=== PATIENT | male | born 1945 | race Caucasian/White ===

== ENCOUNTER 2021-03-23 07:56 | Outpatient (REF) | payer MEDICARE, SELFPAY ==
[2021-03-23 08:48] LABS: MANUAL DIFF FLAG NO
[2021-03-23 08:59] LABS: Basophils Absolute Auto 0.1 X10*3/uL (0.0-0.2); Basophils Percent Auto 0.7 % (0-2); Eosinophils Absolute Auto 0.2 X10*3/uL (0.0-0.4); Eosinophils Percent Auto 2.7 % (0-4); Hematocrit 44.6 % (42-52); Hemoglobin 15.5 g/dl (14.0-18.0); Imm Gran Abs Auto 0.03 X10*3/uL (0.00-0.03); Imm Gran Pct Auto 0.4 % (0.0-0.4); Lymphocytes Absolute Auto 2.1 X10*3/uL (1.2-4.9); Mean Corpuscular HGB Conc 34.8 g/dl (31.0-36.0); Mean Corpuscular Hemoglobin 31.8 pg (27.0-33.0); Mean Corpuscular Volume 91.6 fL (80-98); Mean Platelet Volume 9.8 fL (9.4-12.4); Monocytes Absolute Auto 0.5 X10*3/uL (0.1-1.2); Monocytes Percent Auto 7.2 % (2-11); Neutrophils Absolute Auto 4.4 X10*3/uL (2.0-8.3); Platelet Count 295 X10*3/uL (160-400); Red Blood Count 4.87 X10*6/uL (4.60-5.80); Red Cell Distribution Width 12.8 % (11.0-16.0); White Blood Count 7.4 X10*3/uL (4.8-10.8)
[2021-03-23 09:31] LABS: Alanine Aminotransferase 19 U/L (0-40); Albumin Level 4.4 g/dL (3.5-5.0); Alkaline Phosphatase 88 U/L (39-117); Anion Gap 14 (12-20); Aspartate Amino Transferase 27 U/L (5-37); Bilirubin Total 0.7 mg/dL (0.0-1.0); Blood Urea Nitrogen 17 mg/dL (9-16); Calcium 9.8 mg/dL (8.4-10.2); Carbon Dioxide 28 mmol/L (22-29); Chloride 96 mmol/L (96-108); Cholesterol 125 mg/dL; Estimated Glomerular Filt Rate > 60; Glucose Fasting 113 mg/dL (60-99); HDL Cholesterol 47 mg/dL; LDL Cholesterol Calculated 65 mg/dl; Potassium 4.2 mmol/L (3.3-5.1); Sodium 134 mmol/L (135-145); Total Protein 7.4 g/dL (6.5-8.0); Triglycerides 66 mg/dL
[2021-03-23 09:54] LABS: Prostate Specific Antigen 1.83 ng/mL (<0.05-4.0); Vitamin D 25-OH Total 36.3 ng/mL (>30)
== END 2021-03-23 07:57 | disposition home or self-care (01) ==
LOC: HO.LAB 07:56
PROVIDERS: PCP Internal Medicine Medical Oncology; Visit Provider Internal Medicine Medical Oncology
DX: Z12.5 Encounter for screening for malignant neoplasm of prostate (principal); I10 Essential (primary) hypertension; N40.0 Benign prostatic hyperplasia without lower urinary tract symptoms; E78.2 Mixed hyperlipidemia; E55.9 Vitamin D deficiency, unspecified
CPT/HCPCS: 36415; 80053; 80061; 82306; 84153; 85025

== ENCOUNTER 2021-06-25 11:48 | Outpatient (REF) | payer MEDICARE, SELFPAY | END 2021-06-25 11:49 | disposition home or self-care (01) | LOC: HO.LAB 11:48 | PROVIDERS: PCP Internal Medicine Medical Oncology; Visit Provider Internal Medicine Medical Oncology | DX: Z20.822 Contact with and (suspected) exposure to COVID-19 (principal) | CPT/HCPCS: U0003; U0005 ==

== ENCOUNTER 2021-11-16 14:05 | Outpatient (REF) | payer MEDICARE, SELFPAY ==
[2021-11-16 14:13] VITALS: BMI 23.3
[2021-11-16 14:14] VITALS: BP 88/57; PULSE 94; RESP 16; TEMP 36.1; O2SAT 94
== END 2021-11-16 14:06 | disposition home or self-care (01) ==
LOC: HO.MS 14:05
PROVIDERS: PCP Internal Medicine Medical Oncology; Visit Provider Ophthalmology
PROC: (CPT 67800; principal; 2021-11-16 15:50)
DX: H00.12 Chalazion right lower eyelid (principal); I10 Essential (primary) hypertension; Z79.899 Other long term (current) drug therapy
CPT/HCPCS: 67800

== ENCOUNTER 2022-01-27 15:20 | Outpatient (REF) | payer MEDICARE, SELFPAY ==
--- NOTE | ~2022-01-27 | XR_ITS ---
EXAMINATION: XR CHEST CLINICAL INFORMATION: Pleurisy, pleuritic pain. COMPARISON: None TECHNIQUE: 2 views of the chest were obtained. FINDINGS: The lungs are well expanded. Prominent markings are seen at the lung periphery and bases bilaterally. Associated hazy basilar opacity. No pneumothorax. The cardiomediastinal silhouette is normal in size. XR/XR chest 2V IMPRESSION: Prominent peripheral markings in both lungs. This is nonspecific but could be associated with chronic lung disease. Atypical infectious process is possible.
[2022-01-27 15:46] LABS: MANUAL DIFF FLAG NO
[2022-01-27 16:30] LABS: Basophils Percent Auto 0.5 % (0-2); Eosinophils Absolute Auto 0.1 X10*3/uL (0.0-0.4); Eosinophils Percent Auto 1.5 % (0-4); Hemoglobin 13.4 g/dl (14.0-18.0); Imm Gran Abs Auto 0.02 X10*3/uL (0.00-0.03); Imm Gran Pct Auto 0.2 % (0.0-0.4); Lymphocytes Absolute Auto 2.3 X10*3/uL (1.2-4.9); Lymphocytes Percent Auto 28.2 % (20-40); Mean Corpuscular HGB Conc 34.4 g/dl (31.0-36.0); Mean Corpuscular Hemoglobin 31.4 pg (27.0-33.0); Mean Corpuscular Volume 91.3 fL (80.0-98.0); Mean Platelet Volume 10.2 fL (9.4-12.4); Monocytes Absolute Auto 0.8 X10*3/uL (0.1-1.2); Monocytes Percent Auto 9.7 % (2-11); Neutrophils Absolute Auto 4.9 x10*3/uL (2.0-8.3); Neutrophils Percent Auto 59.9 % (45-73); Platelet Count 299 X10*3/uL (160-400); Red Blood Count 4.27 X10*6/uL (4.60-5.80); Red Cell Distribution Width 13.4 % (11.0-16.0); White Blood Count 8.2 X10*3/uL (4.8-10.8)
[2022-01-27 17:07] LABS: Erythrocyte Sedimentation Rate 65 MM/HR (0-15)
[2022-01-27 17:09] LABS: Alanine Aminotransferase 22 U/L (0-40); Alkaline Phosphatase 101 U/L (39-117); Anion Gap 14 (12-20); Aspartate Amino Transferase 24 U/L (5-37); Bilirubin Total 0.8 mg/dL (0.0-1.0); Blood Urea Nitrogen 35 mg/dL (9-16); Calcium 9.1 mg/dL (8.4-10.2); Carbon Dioxide 27 mmol/L (22-29); Chloride 96 mmol/L (96-108); Estimated Glomerular Filt Rate > 60; Gamma Glutamyl Transpeptidase 175 U/L (11-51); Glucose Random 104 mg/dL (60-115); Potassium 3.4 mmol/L (3.3-5.1); Sodium 134 mmol/L (135-145)
== END 2022-01-27 15:21 | disposition home or self-care (01) ==
LOC: HO.XRAY 15:20
PROVIDERS: PCP Internal Medicine Medical Oncology; Visit Provider Internal Medicine Medical Oncology
DX: R09.1 Pleurisy (principal); R07.81 Pleurodynia; N40.0 Benign prostatic hyperplasia without lower urinary tract symptoms; E78.2 Mixed hyperlipidemia; E55.9 Vitamin D deficiency, unspecified
CPT/HCPCS: 36415; 71046; 80053; 82977; 85025; 85652

== ENCOUNTER 2022-03-17 07:49 | Outpatient (REF) | payer MEDICARE, SELFPAY ==
[2022-03-17 10:22] LABS: MANUAL DIFF FLAG NO
[2022-03-17 10:31] LABS: Basophils Percent Auto 0.4 % (0-2); Eosinophils Absolute Auto 0.2 X10*3/uL (0.0-0.4); Eosinophils Percent Auto 2.9 % (0-4); Hematocrit 38.8 % (42.0-52.0); Hemoglobin 13.5 g/dl (14.0-18.0); Imm Gran Abs Auto 0.03 X10*3/uL (0.00-0.03); Imm Gran Pct Auto 0.4 % (0.0-0.4); Lymphocytes Absolute Auto 2.2 X10*3/uL (1.2-4.9); Lymphocytes Percent Auto 30.7 % (20-40); Mean Corpuscular HGB Conc 34.8 g/dl (31.0-36.0); Mean Corpuscular Hemoglobin 30.6 pg (27.0-33.0); Mean Platelet Volume 10.1 fL (9.4-12.4); Monocytes Absolute Auto 0.7 X10*3/uL (0.1-1.2); Monocytes Percent Auto 9.1 % (2-11); Neutrophils Absolute Auto 4.1 x10*3/uL (2.0-8.3); Neutrophils Percent Auto 56.5 % (45-73); Platelet Count 281 X10*3/uL (160-400); Red Blood Count 4.41 X10*6/uL (4.60-5.80); Red Cell Distribution Width 13.6 % (11.0-16.0); White Blood Count 7.2 X10*3/uL (4.8-10.8)
[2022-03-17 11:01] LABS: Alanine Aminotransferase 17 U/L (0-40); Albumin Level 4.2 g/dL (3.5-5.0); Alkaline Phosphatase 90 U/L (39-117); Anion Gap 13 (12-20); Aspartate Amino Transferase 21 U/L (5-37); Bilirubin Total 0.6 mg/dL (0.0-1.0); Blood Urea Nitrogen 11 mg/dL (9-16); Calcium 9.1 mg/dL (8.4-10.2); Carbon Dioxide 28 mmol/L (22-29); Chloride 94 mmol/L (96-108); Cholesterol 156 mg/dL; Estimated Glomerular Filt Rate > 60; Glucose Fasting 104 mg/dL (60-99); HDL Cholesterol 50 mg/dL; LDL Cholesterol Calculated 93 mg/dl; Potassium 3.5 mmol/L (3.3-5.1); Sodium 131 mmol/L (135-145); Total Protein 7.1 g/dL (6.5-8.0); Triglycerides 68 mg/dL
[2022-03-17 11:13] LABS: Prostate Specific Antigen 1.56 ng/mL (<0.05-4.0)
== END 2022-03-17 07:50 | disposition home or self-care (01) ==
LOC: HO.10HDL 07:49
PROVIDERS: Visit Provider Internal Medicine Medical Oncology
DX: N40.0 Benign prostatic hyperplasia without lower urinary tract symptoms (principal); E78.2 Mixed hyperlipidemia; Z12.5 Encounter for screening for malignant neoplasm of prostate
CPT/HCPCS: 36415; 80053; 80061; 84153; 85025

== ENCOUNTER 2022-07-08 07:03 | Outpatient (REF) | payer MEDICARE, SELFPAY ==
[2022-07-08 07:13] LABS: MANUAL DIFF FLAG NO
[2022-07-08 07:30] LABS: Basophils Absolute Auto 0.1 X10*3/uL (0.0-0.2); Basophils Percent Auto 0.5 % (0-2); Eosinophils Absolute Auto 0.2 X10*3/uL (0.0-0.4); Eosinophils Percent Auto 1.8 % (0-4); Hematocrit 38.7 % (42.0-52.0); Hemoglobin 12.9 g/dl (14.0-18.0); Imm Gran Abs Auto 0.09 X10*3/uL (0.00-0.03); Imm Gran Pct Auto 0.7 % (0.0-0.4); Lymphocytes Absolute Auto 2.9 X10*3/uL (1.2-4.9); Lymphocytes Percent Auto 22.8 % (20-40); Mean Corpuscular HGB Conc 33.3 g/dl (31.0-36.0); Mean Corpuscular Hemoglobin 30.3 pg (27.0-33.0); Mean Corpuscular Volume 90.8 fL (80.0-98.0); Mean Platelet Volume 9.4 fL (9.4-12.4); Monocytes Absolute Auto 0.8 X10*3/uL (0.1-1.2); Monocytes Percent Auto 6.2 % (2-11); Neutrophils Absolute Auto 8.6 x10*3/uL (2.0-8.3); Platelet Count 413 X10*3/uL (160-400); Red Blood Count 4.26 X10*6/uL (4.60-5.80); Red Cell Distribution Width 13.2 % (11.0-16.0); White Blood Count 12.7 X10*3/uL (4.8-10.8)
[2022-07-08 08:07] LABS: Alanine Aminotransferase 36 U/L (0-40); Albumin Level 3.8 g/dL (3.5-5.0); Alkaline Phosphatase 121 U/L (39-117); Anion Gap 12 (12-20); Aspartate Amino Transferase 21 U/L (5-37); Bilirubin Total 0.7 mg/dL (0.0-1.0); Blood Urea Nitrogen 18 mg/dL (9-16); Calcium 9.6 mg/dL (8.4-10.2); Carbon Dioxide 31 mmol/L (22-29); Chloride 99 mmol/L (96-108); Cholesterol 131 mg/dL; Estimated Glomerular Filt Rate > 60; Glucose Fasting 125 mg/dL (60-99); HDL Cholesterol 30 mg/dL; LDL Cholesterol Calculated 84 mg/dl; Sodium 138 mmol/L (135-145); Total Protein 7.2 g/dL (6.5-8.0); Triglycerides 87 mg/dL
== END 2022-07-08 07:04 | disposition home or self-care (01) ==
LOC: HO.LAB 07:03
PROVIDERS: PCP Internal Medicine Medical Oncology; Visit Provider Internal Medicine Medical Oncology
DX: Z00.00 Encounter for general adult medical examination without abnormal findings (principal); N40.0 Benign prostatic hyperplasia without lower urinary tract symptoms; E78.2 Mixed hyperlipidemia
CPT/HCPCS: 36415; 80053; 80061; 85025

== ENCOUNTER 2022-10-18 09:11 | Outpatient (REF) | payer MEDICARE, SELFPAY ==
--- NOTE | ~2022-10-18 | XR_ITS ---
EXAMINATION: XR CHEST CLINICAL INFORMATION: Chronic cough. COMPARISON: 01/27/2022. TECHNIQUE: 2 views of the chest were obtained. XR/XR chest 2V FINDINGS/IMPRESSION: There has been no significant radiographic change compared with 01/27/2022. Examination again demonstrates moderate to severe bilateral chronic interstitial fibrotic changes with a peripheral and basilar predominance. There may be superimposed bullae at the right base. No consolidation, effusion, or pneumothorax is seen. The heart appears normal in size. The aorta may be mildly uncoiled, raising the possibility of hypertension. There are degenerative changes of the shoulders with bilateral degenerative rotator cuff tears. There are mild degenerative changes of the spine.
== END 2022-10-18 09:12 | disposition home or self-care (01) ==
LOC: HO.XRAY 09:11
PROVIDERS: PCP Internal Medicine Medical Oncology; Visit Provider Internal Medicine Medical Oncology
DX: R05.3 Chronic cough (principal)
CPT/HCPCS: 71046

== ENCOUNTER 2023-03-07 07:35 | Outpatient (REF) | payer MEDICARE, SELFPAY ==
[2023-03-07 07:47] LABS: MANUAL DIFF FLAG NO
[2023-03-07 08:17] LABS: Basophils Absolute Auto 0.1 X10*3/uL (0.0-0.2); Basophils Percent Auto 0.6 % (0-2); Eosinophils Absolute Auto 0.3 X10*3/uL (0.0-0.4); Eosinophils Percent Auto 3.5 % (0-4); Hematocrit 40.7 % (42.0-52.0); Hemoglobin 13.6 g/dl (14.0-18.0); Imm Gran Abs Auto 0.02 X10*3/uL (0.00-0.03); Imm Gran Pct Auto 0.2 % (0.0-0.4); Lymphocytes Percent Auto 35.7 % (20-40); Mean Corpuscular HGB Conc 33.4 g/dl (31.0-36.0); Mean Corpuscular Hemoglobin 30.8 pg (27.0-33.0); Mean Corpuscular Volume 92.1 fL (80.0-98.0); Mean Platelet Volume 9.5 fL (9.4-12.4); Monocytes Absolute Auto 0.6 X10*3/uL (0.1-1.2); Monocytes Percent Auto 7.5 % (2-11); Neutrophils Absolute Auto 4.4 x10*3/uL (2.0-8.3); Neutrophils Percent Auto 52.5 % (45-73); Platelet Count 291 X10*3/uL (160-400); Red Blood Count 4.42 X10*6/uL (4.60-5.80); Red Cell Distribution Width 13.6 % (11.0-16.0); White Blood Count 8.4 X10*3/uL (4.8-10.8)
[2023-03-07 09:03] LABS: Prostate Specific Antigen 1.65 ng/mL (<0.05-4.0)
[2023-03-07 11:57] LABS: Alanine Aminotransferase 16 U/L (0-40); Alkaline Phosphatase 100 U/L (39-117); Anion Gap 14 (12-20); Aspartate Amino Transferase 21 U/L (5-37); Bilirubin Total 0.5 mg/dL (0.0-1.0); Blood Urea Nitrogen 16 mg/dL (9-16); Calcium 9.9 mg/dL (8.4-10.2); Carbon Dioxide 28 mmol/L (22-29); Chloride 94 mmol/L (96-108); Cholesterol 131 mg/dL; Estimated Glomerular Filt Rate > 60; Glucose Random 101 mg/dL (60-115); HDL Cholesterol 47 mg/dL; LDL Cholesterol Calculated 61 mg/dl; Potassium 3.9 mmol/L (3.3-5.1); Sodium 132 mmol/L (135-145); Total Protein 7.7 g/dL (6.5-8.0); Triglycerides 117 mg/dL
== END 2023-03-07 07:36 | disposition home or self-care (01) ==
LOC: HO.LAB 07:35
PROVIDERS: PCP Internal Medicine Medical Oncology; Visit Provider Internal Medicine Medical Oncology
DX: Z12.5 Encounter for screening for malignant neoplasm of prostate (principal); N40.0 Benign prostatic hyperplasia without lower urinary tract symptoms; G44.029 Chronic cluster headache, not intractable; I10 Essential (primary) hypertension; E78.2 Mixed hyperlipidemia
CPT/HCPCS: 36415; 80053; 80061; 84153; 85025

== ENCOUNTER 2023-06-17 08:07 | Outpatient (REF) | payer MEDICARE, SELFPAY ==
[2023-06-17 08:20] LABS: MANUAL DIFF FLAG NO
[2023-06-17 08:34] LABS: Basophils Percent Auto 0.6 % (0-2); Eosinophils Absolute Auto 0.2 X10*3/uL (0.0-0.4); Eosinophils Percent Auto 3.6 % (0-4); Hematocrit 40.3 % (42.0-52.0); Imm Gran Abs Auto 0.02 X10*3/uL (0.00-0.03); Imm Gran Pct Auto 0.3 % (0.0-0.4); Lymphocytes Absolute Auto 2.3 X10*3/uL (1.2-4.9); Lymphocytes Percent Auto 36.5 % (20-40); Mean Corpuscular HGB Conc 34.7 g/dl (31.0-36.0); Mean Corpuscular Hemoglobin 32.5 pg (27.0-33.0); Mean Corpuscular Volume 93.5 fL (80.0-98.0); Mean Platelet Volume 9.7 fL (9.4-12.4); Monocytes Absolute Auto 0.6 X10*3/uL (0.1-1.2); Monocytes Percent Auto 9.3 % (2-11); Neutrophils Absolute Auto 3.1 x10*3/uL (2.0-8.3); Neutrophils Percent Auto 49.7 % (45-73); Platelet Count 235 X10*3/uL (160-400); Red Blood Count 4.31 X10*6/uL (4.60-5.80); Red Cell Distribution Width 13.5 % (11.0-16.0); White Blood Count 6.3 X10*3/uL (4.8-10.8)
[2023-06-17 09:43] LABS: Alanine Aminotransferase 18 U/L (0-40); Albumin Level 4.1 g/dL (3.5-5.0); Alkaline Phosphatase 84 U/L (39-117); Anion Gap 12 (12-20); Aspartate Amino Transferase 26 U/L (5-37); Bilirubin Total 0.7 mg/dL (0.0-1.0); Blood Urea Nitrogen 17 mg/dL (9-16); Calcium 9.4 mg/dL (8.4-10.2); Carbon Dioxide 28 mmol/L (22-29); Chloride 96 mmol/L (96-108); Cholesterol 137 mg/dL (<200); Estimated Glomerular Filt Rate > 60; Glucose Fasting 99 mg/dL (60-99); HDL Cholesterol 43 mg/dL (>40); LDL Cholesterol Calculated 74 mg/dL (<100); Potassium 3.8 mmol/L (3.3-5.1); Sodium 132 mmol/L (135-145); Total Protein 7.6 g/dL (6.5-8.0); Triglycerides 101 mg/dL (<150)
== END 2023-06-17 08:08 | disposition home or self-care (01) ==
LOC: HO.LAB 08:07
PROVIDERS: PCP Internal Medicine Medical Oncology; Visit Provider Internal Medicine Medical Oncology
DX: Z00.00 Encounter for general adult medical examination without abnormal findings (principal); I10 Essential (primary) hypertension; E78.2 Mixed hyperlipidemia
CPT/HCPCS: 36415; 80053; 80061; 85025

== ENCOUNTER 2024-01-11 07:20 | Outpatient (REF) | payer MEDICARE, SELFPAY ==
[2024-01-11 07:37] LABS: MANUAL DIFF FLAG NO
[2024-01-11 07:53] LABS: Basophils Absolute Auto 0.1 X10*3/uL (0.0-0.2); Basophils Percent Auto 0.6 % (0-2); Eosinophils Absolute Auto 0.3 X10*3/uL (0.0-0.4); Eosinophils Percent Auto 3.9 % (0-4); Hematocrit 40.1 % (42.0-52.0); Hemoglobin 14.2 g/dl (14.0-18.0); Imm Gran Abs Auto 0.03 X10*3/uL (0.00-0.03); Imm Gran Pct Auto 0.4 % (0.0-0.4); Lymphocytes Percent Auto 36.5 % (20-40); Mean Corpuscular HGB Conc 35.4 g/dl (31.0-36.0); Mean Corpuscular Hemoglobin 32.9 pg (27.0-33.0); Mean Platelet Volume 9.6 fL (9.4-12.4); Monocytes Absolute Auto 0.8 X10*3/uL (0.1-1.2); Monocytes Percent Auto 9.7 % (2-11); Neutrophils Percent Auto 48.9 % (45-73); Platelet Count 215 X10*3/uL (160-400); Red Blood Count 4.31 X10*6/uL (4.60-5.80); Red Cell Distribution Width 13.2 % (11.0-16.0); White Blood Count 8.1 X10*3/uL (4.8-10.8)
[2024-01-11 08:46] LABS: Alanine Aminotransferase 17 U/L (0-40); Alkaline Phosphatase 80 U/L (39-117); Anion Gap 12 (12-20); Aspartate Amino Transferase 22 U/L (5-37); Bilirubin Total 0.5 mg/dL (0.0-1.0); Blood Urea Nitrogen 15 mg/dL (9-16); Calcium 9.4 mg/dL (8.4-10.2); Carbon Dioxide 28 mmol/L (22-29); Chloride 92 mmol/L (96-108); Cholesterol 132 mg/dL (<200); Estimated Glomerular Filt Rate > 60; Glucose Fasting 93 mg/dL (60-99); HDL Cholesterol 48 mg/dL (>40); LDL Cholesterol Calculated 63 mg/dL (<100); Potassium 3.3 mmol/L (3.3-5.1); Sodium 129 mmol/L (135-145); Total Protein 7.4 g/dL (6.5-8.0); Triglycerides 106 mg/dL (<150)
== END 2024-01-11 07:21 | disposition home or self-care (01) ==
LOC: HO.LAB 07:20
PROVIDERS: PCP Internal Medicine Medical Oncology; Visit Provider Internal Medicine Medical Oncology
DX: E78.2 Mixed hyperlipidemia (principal)
CPT/HCPCS: 36415; 80053; 80061; 85025

== ENCOUNTER 2024-03-29 09:53 | Outpatient (REF) | payer MEDICARE, SELFPAY ==
--- NOTE | ~2024-03-29 | XR_ITS ---
EXAMINATION: XR CHEST CLINICAL INFORMATION: Chronic cough COMPARISON: 10/18/2022 TECHNIQUE: 2 views of the chest were obtained. FINDINGS: There are prominent bilateral interstitial markings and bibasilar atelectasis findings consistent with features of pulmonary fibrosis. No consolidations or nodules seen. Thoracic aorta is tortuous heart is not enlarged. XR/XR chest 2V IMPRESSION: Features of pulmonary fibrosis without acute abnormalities. Bibasilar atelectasis
== END 2024-03-29 09:54 | disposition home or self-care (01) ==
LOC: HO.XRAY 09:53
PROVIDERS: PCP Internal Medicine Medical Oncology; Visit Provider Internal Medicine Medical Oncology
DX: R05.3 Chronic cough (principal); Z87.891 Personal history of nicotine dependence
CPT/HCPCS: 71046

== ENCOUNTER 2024-04-19 10:49 | Outpatient (REF) | payer MEDICARE, SELFPAY | END 2024-04-19 10:50 | disposition home or self-care (01) | LOC: HO.HOSX 10:49 | PROVIDERS: Visit Provider Physician Assistant | DX: Z13.89 Encounter for screening for other disorder (principal) ==

== ENCOUNTER 2024-04-20 11:55 | Outpatient (REF) | payer MEDICARE, SELFPAY ==
--- NOTE | ~2024-04-20 | XR_ITS ---
EXAMINATION: XR SHOULDER, LEFT CLINICAL INFORMATION: Shoulder pain COMPARISON: None available. TECHNIQUE: Three views of the left shoulder. FINDINGS: Moderate acromioclavicular arthritis. Moderate-severe glenohumeral joint arthritis. There is superior positioning of the humeral head with respect to the glenoid, raising concern for rotator cuff tearing. No visible acute fracture or dislocation. XR/XR shoulder LT min 2V IMPRESSION: Moderate-severe glenohumeral joint arthritis. Moderate acromioclavicular arthritis. Superior subluxation of the humerus, concerning for rotator cuff tear. Electronically signed by: Todd Leos MD 04/26/2024 05:02 PM EDT
== END 2024-04-20 11:56 | disposition home or self-care (01) ==
LOC: HO.HOSX 11:55
PROVIDERS: Visit Provider Physician Assistant
DX: M25.512 Pain in left shoulder (principal); M19.012 Primary osteoarthritis, left shoulder; M12.812 Other specific arthropathies, not elsewhere classified, left shoulder; M75.102 Unspecified rotator cuff tear or rupture of left shoulder, not specified as traumatic; S43.002A Unspecified subluxation of left shoulder joint, initial encounter
CPT/HCPCS: 20610; 73030; 99202; J1010

== ENCOUNTER 2024-04-20 12:18 | Outpatient (AMB) | payer MEDICARE, SELFPAY ==
--- NOTE | 2024-04-20 12:33 | MHC.OFFVIS ---
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 Patient reports ongoing pain for many months. He mentions having an cortisone injection which gave him relief. Patient reports his pain is worse when he is laying down on his left side. 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 ? ? While in the office today, the patient reports ongoing pain for many months. He states the pain radiates up and down his left upper extremity. He confirms a history of cortisone injections in the right shoulder in the past that gave him relief. He states he is unable to lay on his left side due to pain. ? ? Patient denies a medical history of diabetes mellitus. ? ? Patient has a surgical history of left shoulder rotator cuff repair. ? [facility] Social History (Updated 04/20/24 @ 12:38 by Aleksandr Osorio) Alcohol intake: never Patient Tobacco Use Status: Never used Tobacco Current occupational status: retired Review of Systems Const All systems reviewed & are unremarkable except as noted in HPI and below Physical Exam Const General: cooperative, healthy appearing and no acute distress Orientation/consciousness: patient oriented x3 Resp Effort & Inspection: normal respiratory effort and able to speak in complete sentences Cardio Rate: regular rate Peripheral pulses: Peripheral pulses 2+ throughout GI Palpation (GI): Soft to palpation Skin General skin exam: no rashes or lesions noted Lesions: no lesions Rashes: no rashes Neuro General: patient oriented x3 Extrem Other: Left shoulder FF and ABD to 100 degrees. ER to neutral. Sensation intact. + Empty can. NVI. Office Procedures Joint Injection/Aspiration Joint Injection/Aspiration Primary Site: left shoulder Prep: site was prepped using aseptic technique, ethochloride spray was applied and injection warnings given Injected: 80 mg of, DepoMedrol, with 8 mL of (2% plain lido ) and in the subcromial space Approach Used: posterolateral Procedure: The patient tolerated the procedure well, but had some pain with the injection and there was some relief with the local anesthesia Coding 64517 - Large joint Procedure code (CPT) selection complete Assessment & Plan Assessment & Plan (1) Osteoarthritis of left shoulder: Code(s): M19.012 - Primary osteoarthritis, left shoulder Category: Medical (2) Rotator cuff tear arthropathy: Comment: Chronic Code(s): M75.100 - Unspecified rotator cuff tear or rupture of unspecified shoulder, not specified as traumatic; M12.819 - Other specific arthropathies, not elsewhere classified, unspecified shoulder Category: Medical Plan Mr. Larkin is a 78-year-old right hand dominant male who presents in the office today, as a new patient, for left shoulder pain. ? ? While in the office today, the patient reports ongoing pain for many months. He states the pain radiates up and down his left upper extremity. He confirms a history of cortisone injections in the right shoulder in the past that gave him relief. He states he is unable to lay on his left side due to pain. ? ? Patient denies a medical history of diabetes mellitus. ? ? Patient has a surgical history of left shoulder rotator cuff repair.? ? The patient was offered a cortisone injection in the left shoulder with 80 mg of Depo-Medrol. The patient was explained the risks, benefits, and alternatives to receiving this injection. After receiving consent for the injection, the patient had the procedure done while in the office today. The patient tolerated the procedure well with no complications. Follow-up will be PRN, or sooner if needed. ? ? X-rays of the left shoulder which were obtained while in the office today and were reviewed by me, Rachel Inman PA-C, revealed osteoarthritis and acetabularization of acromion Orders: Orders XR shoulder LT min 2V Today M25.519 - Pain in unspecified shoulder Patient Instructions: Scribed by Kayley Roldan pesticide use medical coordinator, for Racehl Inman PA-C on 04/20/2024 at 12:59 pm, EST.? Coding Level of Care Code New Pt Level 4 (92544) Complex EM visit Add On G2211 Diagnoses Osteoarthritis of left shoulder M19.012 Rotator cuff tear arthropathy M75.100; M12.819 CPT Codes Coding - 36342 Large joint: 59802 - Large joint ([id number])
== END 2024-04-20 12:55 | disposition home or self-care (01) ==
PROVIDERS: PCP Internal Medicine Medical Oncology; Visit Provider Physician Assistant
DX: M19.012 Primary osteoarthritis, left shoulder (principal); M75.100 Unspecified rotator cuff tear or rupture of unspecified shoulder, not specified as traumatic
CPT/HCPCS: 20610; 99204

== ENCOUNTER 2024-09-18 09:52 | Outpatient (REF) | payer MEDICARE, SELFPAY ==
[2024-09-18 10:15] LABS: MANUAL DIFF FLAG NO
--- OUTSIDE RECORDS SUMMARY | 2024-09-18 10:30 | XMS_ITS ---
Author Organization Ryan Goodwin III, MD Address [address] [place] [place] [address] Care Team Providers Care Gasser Machine Operator Name Role Phone Ryan Goodwin Primary Care Provider [phone] REASON FOR VISIT follow up Social History Sex Assigned At : Social History Observation Description Sex Assigned At Male Encounters Encounter Location Date Provider Diagnosis Ryan Goodwin III, MD [address] [place] [address] [place] [address] 06/27/2024 Ryan Goodwin Plan Of Treatment Next Appt Details Provider Name:Ryan Goodwin, 09/25/2024 03:15:00 PM, [address] [place] [address] [place], [address], Provider Name:Ryan Goodwin, 04/01/2025 10:00:00 AM, [address] [place] [address] [place], [address], Progress Notes * Ulysses LARKIN SDOB:1945 (78 yo M)Acc No.[id number]:06/27/2024 Progress Notes Patient:?Ulysses LARKIN Provider:?Ryan Goodwin MD :1945???Age:78 Y???Sex:Male Carlos e:06/27/2024 Address:[address], [id number] Subjective: * Chief Complaints: * ???1. Follow up. * Medical History:? Objective: * Vitals:? Assessment: Plan: * Treatment: * Images: * The named appointment provid er may or may not be the originator of this progress note, and it is not deemed complete until electronically signed by the appointment provider. Sign off status: Pending * Provider:?Ryan Goodwin MD Date:?01/2024 Generated for Vincenzo rao/Baylee/Tu on:?09/18/2024 10:30 AM EST
--- OUTSIDE RECORDS SUMMARY | 2024-09-18 10:30 | XMS_ITS ---
Author Organization Ryan Goodwin III, MD Address [address] [place] [address] DR [address] [place] [phone] Care Team Providers Care Flat Sorting Machine Clerk Name Role Phone Ryan Goodwin Primary Care Provider [phone] Allergies Allergen (clinical drug ingredient) Drug/Non Drug [...] Orally Fiv e times a day Active Fktmxwcsxw-IUGO-Nyrzeixb 50-325-40 MG 1 Tablet Orally Once a day As needed Active Benzonatate 100 MG 1 capsule as needed Orally Three times a day 03/28/2024 Active Irbesartan 300 MG 1 tablet Orally Once a day Active Social History Sex Assigned At : Social History Observation Description Sex Assigned At Male Encounters Encounter Location Date Provider Diagnosis Ryan Goodwin III, MD [address] [place] [address] DR URBINA Duncan [place] [phone] 08/20/2024 Ryan Goodwin Impacted cerumen, unspecified ear [...] day hydroCHLOROthiazide 25 MG 1 tablet in e morning Orally Once a day Acyclovir 200 MG 1 capsule Orally Fiv e times a day Rkibyponky-EIRP-Oibtcdur 50- 325-40 MG 1 Tablet Orally Once a day Benzonatate 100 MG 1 capsule as needed Orally Three times a day 03/28/2024 Irbesartan 300 MG 1 tablet Orally Once a day Next Appt Details Follow Up: as scheduled, [place] son: ov review labs Provider Name:Ryan Goodwin, 09/25/2024 03:15:00 PM, [address] [place] [address] [address], [place], [address], Provider Name:Ryan Goodwin, 04/01/2025 10:00:00 AM, [address] [place] [address] [address], [place], [phone], Procedure Notes * Category Sub-Category Detail Notes Ear lavage Procedure Post-procedure Successful Progress Notes * Ulysses LARKIN SDOB:1945 (78 yo M)Acc No.[id number]:08/20/2024 Patient:?Ulysses LARKIN S Provider:?Ryan Goodwin MD :1945???Age:78 Y???Sex:Male Carlos e:08/20/2024 Address:[address] [place] [address] RD, [address], [id number] Subjective: * Chief Complaints: * ???Ear Irrigation * HPI: ???v:? He has used 4 drops of Debrox in each ear for 7 days and comes to the office for cerumen disimpaction.? Both ears were irrigated with warm water with full of the impaction and improvement in hearing.? No trauma occurred.? The skin of his ear canals remained intact. He lleft the office and ambulatory in stable condition. * ROS:?Prior to the procedure he denied any headache diplopia neck pain neck stiffness shortness of breath cough chest pain palpitations nausea vomiting diarrhea joint pain or bleeding. * Medical History:? * Medications:?TakingIrbesarta n 300 MG Tablet 1 tablet Orally Once a day Acyclovir 200 MG Capsule 1 capsule Orally Five times a day hydroCHLOROthiazide 25 MG Tablet 1 tablet in the morning Orally Once a day Benzonatate 100 MG Capsule 1 capsule as needed Orally Three times a day Meiujdhgtk-FGDX-Dgcmzzvh 50-325-40 MG Tablet 1 Tablet Orally Once [...] needed Orally Three times a day Taking Huahamgtda-GOSR-Euwoydpg 50-325-40 MG Tablet 1 Tablet Orally Once a day As neededTaking Simvastatin 40 MG Tablet 1 tablet every evening Orally Once a day * Allergies:?No Known Drug All ergy Objective: * Vitals:? Assessment: * Assessment: 1.?Impacted cerumen, unspeci fied ear - H61.20 (Primary)???Notes :Both ears were impacted.? Both impactions were removed without trauma.? He tolerated procedure well and reported improved hearing at once.? He will return as scheduled.???2.?Benign prostatic hyperplasia, unspecified whether lower urinary tract symptoms present - N40.0???Notes :He rises from sleep once or twice a night to urinate. We have discussed lifestyle modification as a way to reduce nocturnal urination.???3.?Chronic cluster headache, not intractable - G44.029???Notes :His headaches are mild and infrequent and are now controlled with medication.???4.?Essential hypertension - I10???Notes :His blood pressure is in the normal range at 114/78 and no change in his regimen was needed today.??? Plan: * Treatment: * Procedures:?Ear lavage:?Procedure? .?Post-procedure?Successful.? * Procedure Codes:?65226 EAR I RRIGATION * Follow Up:?as scheduled ([place] son: ov review labs) * Images: * Sign off status: Completed true * Provider:?Ryan Goodwin MD Date:?07/24 Generated for Vincenzo rao/Baylee/eTgraceitting on:?09/18/2024 10:30 AM EST
--- OUTSIDE RECORDS SUMMARY | 2024-09-18 10:30 | XMS_ITS | Patient Health Record ---
Author Organization [facility] Address [address] [place] [address] Care Team Providers Care Tubing Supervisor Name Role Phone Ariel Guo DO Primary Care Provider Unavailab le Reason For Referral No Information Medications Medication SIG (Take, Route, Fr equency, Duration) Notes Start Date End Date Status Vitamin C Active Multi Vitamin Active Claritin Active Amoxicillin Active hydroCHLOROthiazide Active Sildenafil Citrate A ctive Acyclovir Active Golytely 236 GM as directed Orally s tart at noon day before procedure for 1 days 01/16/2020 Unknown Gas Relief Active Simvastatin Active Social History Tobacco Use: Social History Observation Description Date Details (start date - stop date) Former Smoker NA - NA Tobacco Use/Smoking Question Answer Notes Are you a: former smoker Alcohol Screen (Audit-C) Question Answer Notes Did you have a drink containing alcohol in the p ast year? No Points 0 Interpretation Negative Problems Problem Type SNOMED Code ICD Code Onset Dates Problem Status W/U Status Risk Notes Problem 034089858 Diverticulosis (K57.90) Active confirmed Plan Of Treatment Pending Test Test Name Order Date Surgical Pathology Report 01/24/2020 COVID19 (LC) 01/22/2020 Insurance Providers Payer Name Payer Address Payer Phone Subscriber Number Group Number Insured Name Patient Relationship to Insured Coverage Start Date Coverage End Date [facility]/[employer] [address] [address] [place] [phone] [id number] Ulysses Larkin Self - patient is the insured Medical (General) History Medical History History ICD Code Hypertension Surgical History Surgery Date(Month/Year) colonoscopy Tonsillectomy [place] surgery Hip replacement Carpal Tunnel Hip revision Hernia
--- OUTSIDE RECORDS SUMMARY | 2024-09-18 10:30 | XMS_ITS ---
Author Organization Ryan Goodwin III, MD Address [address] [place] [facility] [place] [address] Care Team Providers Care Insurance Clerk Name Role Phone Ryan Goodwin Primary Care Provider REASON FOR VISIT Follow Up Social History Sex Assigned At : Social History Observation Description Sex Assigned At Male Encounters Encounter Location Date Provider Diagnosis Ryan Goodwin III, MD [address] [place] [address] [place] [address] 09/17/2024 Ryan Goodwin Plan Of Treatment Next Appt Details Provider Name:Ryan Goodwin, 09/25/2024 03:15:00 PM, [address] [place] [address] [place], [address], Provider Name:Ryan Goodwin, 04/01/2025 10:00:00 AM, [address] [place] [address] [place], [address], Progress Notes * Ulysses LARKIN SDOB:1945 (78 yo M)Acc No.[id number]:09/17/2024 Progress Notes Patient:?Ulysses LARKIN Provider:?Ryan Goodwin MD :1945???Age:78 Y???Sex:Male Carlos e:09/17/2024 [address] [phone] Subjective: * Chief Complaints: * ???1. Follow Up. * Medical History:? Objective: * Vitals:? Assessment: Plan: * Treatment: * Images: * The named appointment provid er may or may not be the originator of this progress note, and it is not deemed complete until electronically signed by the appointment provider. Sign off status: Pending * Provider:?Ryan Goodwin MD Date:?08/23 Generated for Vincenzo rao/Baylee/Kristaitting on:?09/18/2024 10:29 AM EST
[2024-09-18 10:56] LABS: Basophils Percent Auto 0.4 % (0-2); Eosinophils Absolute Auto 0.2 X10*3/uL (0.0-0.4); Eosinophils Percent Auto 3.3 % (0-4); Hematocrit 41.3 % (42.0-52.0); Hemoglobin 14.5 g/dl (14.0-18.0); Imm Gran Abs Auto 0.02 X10*3/uL (0.00-0.03); Imm Gran Pct Auto 0.3 % (0.0-0.4); Lymphocytes Absolute Auto 2.3 X10*3/uL (1.2-4.9); Lymphocytes Percent Auto 33.3 % (20-40); Mean Corpuscular HGB Conc 35.1 g/dl (31.0-36.0); Mean Corpuscular Hemoglobin 33.2 pg (27.0-33.0); Mean Corpuscular Volume 94.5 fL (80.0-98.0); Mean Platelet Volume 9.8 fL (9.4-12.4); Monocytes Absolute Auto 0.5 X10*3/uL (0.1-1.2); Monocytes Percent Auto 7.7 % (2-11); Neutrophils Absolute Auto 3.8 x10*3/uL (2.0-8.3); Platelet Count 231 X10*3/uL (160-400); Red Blood Count 4.37 X10*6/uL (4.60-5.80); White Blood Count 6.9 X10*3/uL (4.8-10.8)
[2024-09-18 11:45] LABS: Alanine Aminotransferase 29 U/L (0-40); Albumin Level 4.2 g/dL (3.5-5.0); Alkaline Phosphatase 80 U/L (39-117); Anion Gap 10 (12-20); Aspartate Amino Transferase 28 U/L (5-37); Bilirubin Total 0.8 mg/dL (0.0-1.0); Blood Urea Nitrogen 15 mg/dL (9-16); Calcium 9.1 mg/dL (8.4-10.2); Carbon Dioxide 29 mmol/L (22-29); Chloride 97 mmol/L (96-108); Cholesterol 129 mg/dL (<200); Estimated Glomerular Filt Rate > 60; Glucose Fasting 95 mg/dL (60-99); HDL Cholesterol 39 mg/dL (>40); LDL Cholesterol Calculated 55 mg/dL (<100); Potassium 3.8 mmol/L (3.3-5.1); Sodium 132 mmol/L (135-145); Total Protein 7.7 g/dL (6.5-8.0); Triglycerides 178 mg/dL (<150)
== END 2024-09-18 09:53 | disposition home or self-care (01) ==
LOC: HO.LAB 09:52
PROVIDERS: PCP Internal Medicine Medical Oncology; Visit Provider Internal Medicine Medical Oncology
DX: E78.2 Mixed hyperlipidemia (principal)
CPT/HCPCS: 36415; 80053; 80061; 85025

== ENCOUNTER 2025-01-09 07:50 | Outpatient (REF) | payer MEDICARE, SELFPAY ==
[2025-01-09 08:05] LABS: MANUAL DIFF FLAG NO
[2025-01-09 08:29] LABS: Basophils Absolute Auto 0.1 X10*3/uL (0.0-0.2); Basophils Percent Auto 0.8 % (0-2); Eosinophils Absolute Auto 0.2 X10*3/uL (0.0-0.4); Eosinophils Percent Auto 3.5 % (0-4); Hematocrit 42.3 % (42.0-52.0); Imm Gran Abs Auto 0.02 X10*3/uL (0.00-0.03); Imm Gran Pct Auto 0.3 % (0.0-0.4); Lymphocytes Absolute Auto 2.6 X10*3/uL (1.2-4.9); Lymphocytes Percent Auto 40.8 % (20-40); Mean Corpuscular HGB Conc 35.5 g/dl (31.0-36.0); Mean Platelet Volume 9.9 fL (9.4-12.4); Monocytes Absolute Auto 0.5 X10*3/uL (0.1-1.2); Monocytes Percent Auto 8.5 % (2-11); Neutrophils Absolute Auto 2.9 x10*3/uL (2.0-8.3); Neutrophils Percent Auto 46.1 % (45-73); Platelet Count 271 X10*3/uL (160-400); Red Blood Count 4.55 X10*6/uL (4.60-5.80); Red Cell Distribution Width 13.2 % (11.0-16.0); White Blood Count 6.3 X10*3/uL (4.8-10.8)
[2025-01-09 09:00] LABS: Alanine Aminotransferase 23 U/L (0-40); Albumin Level 4.5 g/dL (3.5-5.0); Alkaline Phosphatase 75 U/L (39-117); Anion Gap 14 (12-20); Aspartate Amino Transferase 31 U/L (5-37); Bilirubin Total 0.7 mg/dL (0.0-1.0); Blood Urea Nitrogen 14 mg/dL (9-16); Calcium 9.3 mg/dL (8.4-10.2); Carbon Dioxide 28 mmol/L (22-29); Chloride 92 mmol/L (96-108); Cholesterol 148 mg/dL (<200); Estimated Glomerular Filt Rate > 60; Glucose Fasting 109 mg/dL (60-99); HDL Cholesterol 44 mg/dL (>40); LDL Cholesterol Calculated 61 mg/dL (<100); Potassium 3.5 mmol/L (3.3-5.1); Sodium 130 mmol/L (135-145); Total Protein 7.7 g/dL (6.5-8.0); Triglycerides 218 mg/dL (<150)
[2025-01-09 09:17] LABS: Prostate Specific Antigen 1.31 ng/mL (<0.05-4.0)
== END 2025-01-09 07:51 | disposition home or self-care (01) ==
LOC: HO.LAB 07:50
PROVIDERS: PCP Internal Medicine Medical Oncology; Visit Provider Internal Medicine Medical Oncology
DX: E78.2 Mixed hyperlipidemia (principal); N40.0 Benign prostatic hyperplasia without lower urinary tract symptoms; I10 Essential (primary) hypertension; Z12.5 Encounter for screening for malignant neoplasm of prostate
CPT/HCPCS: 36415; 80053; 80061; 84153; 85025

== ENCOUNTER 2025-03-27 08:53 | Outpatient (REF) | payer MEDICARE, SELFPAY ==
--- OUTSIDE RECORDS SUMMARY | 2024-11-05 06:59 | XMS_ITS ---
Author Organization Ryan Goodwin III, MD Address [address] [place] [address] [address] [facility] [place] [address] Care Team Providers Care Jointer Machine Name Role Phone Ryan Goodwin Primary Care Provider REASON FOR VISIT HCC Risk Codes Social History Sex Assigned At : Social History Observation Description Sex Assigned At Male Encounters Encounter Location Date Provider Diagnosis Ryan Goodwin III, MD [address] [place] [address] [place] [address] 11/05/2024 Ryan Goodwin Plan Of Treatment Next Appt Details Provider Name:Ryan Goodwin, 04/01/2025 10:00:00 AM, [address] [place] [address] [address], [place], [address], Progress Notes * Ulysses LARKIN SDOB:1945 (78 yo M)Acc No.[id number]:11/05/2024 Patient: Ulysses PLAZA :1945 A ge:78 Y S ex:Male Address:[address] [facility], [place] [address] * true * Date: Generated for Naeli ng/Faiselag/eTransmitting on: 0 03/27/2025 09:03 AM EDT
[2025-03-27 09:03] LABS: MANUAL DIFF FLAG NO
--- OUTSIDE RECORDS SUMMARY | 2025-03-27 09:03 | XMS_ITS | Patient Health Record ---
Author Organization [facility] Address [address] [place] [address] Care Team Providers Care Rock Lather Name Role Phone Ryan Goodwin MD Primary Care Provider UnavailRyan Trinidad Unavailable [phone] Allergies No Known Allergies Reason For Referral No Information Medications Medication SIG (Take, Route, Frequency, Duration) Notes Start Date End Date Status Hezbowqxbb-ZDMR-Rpnnnhdd 50-325-40 MG 1 tablet as needed Orally every 4 hrs Active Simvastatin 40 MG 1 tablet in the evening Orally Once a day Active Benzonatate 100 MG 1 capsule as needed Orally Three times a day Active Irbesartan 300 MG 1 tablet Orally Once a day Active Acyclovir 200 MG 1 capsule Orally fiv e times a day Active hydroCHLOROthiazide 25 MG 1 tablet in e morning Orally Once a day Active Immunizations Vaccine Route Administration Date Status Comme nts Influenza Unknown 06/11/2024 Administered Social History Tobacco Use: Social History Observation Description Date Details (start date - stop date) Never Smoker NA - NA Tobacco Control (Standard) Question Answer Notes Tobacco use: Nonsmoker AUDIT-C (Standard) Question Answer Notes Did you have a drink containing alcohol in the p ast year? No Points 0 Interpretation Negative Problems Problem Type SNOMED Code ICD Code Onset Dates Problem Status W/U Status Risk Notes Problem Colon cancer screening (009937215) Colon cancer screening (Z12.11) Active confirmed Problem Preprocedural examination (621736190995529) Preprocedural examination (Z01.818) Active confirmed Problem History of adenomatous polyp of colon (843061254) History of adenomatous polyp of colon (Z86.0101) Active confirmed Vital Signs Temperature 97.9 degrees Fahrenheit 01/30/2025 Blood pressure diastolic 01 mm Hg 01/30/2025 Height 70 in 01/30/2025 Blood pressure systolic 001 mm Hg 01/30/2025 Weight 162 lbs 01/30/2025 BMI 23.24 kg/m2 01/30/2025 Encounters Encounter Location Date Provider Diagnosis [facility] [address] [place] [address] 01/30/2025 Ryan Bledsoe History of adenomato us polyp of colon Z86.0101 ; Preprocedural examination Z01.818 and Colon cancer screening Z12.11 Assessments Encounter Date Diagnosis (ICD Code) Assessment Notes Treatment Notes Treatment Clinical Notes Section Notes 01/30/2025 Preprocedural examination (ICD-10 - Z01.818) Overall, Ulysses appears quite well. He is currently not having any new or worrisome GI complaints. While he is very healthy and would tolerate a colonoscopy without any difficulties, I did advise him that current guidelines would recommend holding off on a screening colonoscopy in a patient at age 79. He has had 2 previous colonoscopies in the past, 1 of which was negative and the other with just a minimal tubular adenoma. He has no family history of colon cancer. Therefore, based on all of that I think it would be quite reasonable to hold off on a screening colonoscopy at his age as the theoretical benefits most likely would not outweigh any theoretical risks of the procedure. I did advise him that I would certainly be happy to do a colonoscopy on him if he so desired. However at this point he is very comfortable with holding off on a colonoscopy as he is currently feeling very well. I advised him that I would agree with that. However, I did advise him that if anything changes in the future such as a change in bowel habits or any signs of bleeding he would need to call me for reevaluation. I did advise him that the other option would be to have him receive a Cologuard test through your office if he so desires as well. Obviously if that is done and turns out to be positive he should then call me for setting up a colonoscopy at that point. However, again if things remain well he would simply see me on a prn basis. Ulysses was very comfortable with this plan. Thank you again for allowing me to have participated in Ulysses's care. Please do not hesitate to contact me if I can be of any further assistance in the future. 01/30/2025 History of adenomatous polyp of colon (ICD-10 - Z86.0101) Overall, Ulysses appears quite well. He is currently not having any new or worrisome GI complaints. While he is very healthy and would tolerate a colonoscopy without any difficulties, I did advise him that current guidelines would recommend holding off on a screening colonoscopy in a patient at age 79. He has had 2 previous colonoscopies in the past, 1 of which was negative and the other with just a minimal tubular adenoma. He has no family history of colon cancer. Therefore, based on all of that I think it would be quite reasonable to hold off on a screening colonoscopy at his age as the theoretical benefits most likely would not outweigh any theoretical risks of the procedure. I did advise him that I would certainly be happy to do a colonoscopy on him if he so desired. However at this point he is very comfortable with holding off on a colonoscopy as he is currently feeling very well. I advised him that I would agree with that. However, I did advise him that if anything changes in the future such as a change in bowel habits or any signs of bleeding he would need to call me for reevaluation. I did advise him that the other option would be to have him receive a Cologuard test through your office if he so desires as well. Obviously if that is done and turns out to be positive he should then call me for setting up a colonoscopy at that point. However, again if things remain well he would simply see me on a prn basis. Ulysses was very comfortable with this plan. Thank you again for allowing me to have participated in Ulysses's care. Please do not hesitate to contact me if I can be of any further assistance in the future. 01/30/2025 Colon cancer screening (ICD-10 - Z12.11) Given your age of 79 we will hold off on a screening colonoscopy. You can speak with Dr. Goodwin about a Cologuard test. If you develop any symptoms such as a change in bowel habits or bleeding then you should call me. Overall, Ulysses appears quite well. He is currently not having any new or worrisome GI complaints. While he is very healthy and would tolerate a colonoscopy without any difficulties, I did advise him that current guidelines would recommend holding off on a screening colonoscopy in a patient at age 79. He has had 2 previous colonoscopies in the past, 1 of which was negative and the other with just a minimal tubular adenoma. He has no family history of colon cancer. Therefore, based on all of that I think it would be quite reasonable to hold off on a screening colonoscopy at his age as the theoretical benefits most likely would not outweigh any theoretical risks of the procedure. I did advise him that I would certainly be happy to do a colonoscopy on him if he so desired. However at this point he is very comfortable with holding off on a colonoscopy as he is currently feeling very well. I advised him that I would agree with that. However, I did advise him that if anything changes in the future such as a change in bowel habits or any signs of bleeding he would need to call me for reevaluation. I did advise him that the other option would be to have him receive a Cologuard test through your office if he so desires as well. Obviously if that is done and turns out to be positive he should then call me for setting up a colonoscopy at that point. However, again if things remain well he would simply see me on a prn basis. Ulysses was very comfortable with this plan. Thank you again for allowing me to have participated in Ulysses's care. Please do not hesitate to contact me if I can be of any further assistance in the future. Plan Of Treatment No Information Insurance Providers Payer Name Payer Address Payer Phone Subscriber Number Group Number Insured Name Patient Relationship to Insured Coverage Start Date Coverage End Date [facility] [address] [place] [phone] [id number] ULYSSES MENDEZ Self - patient is the insured 4 Medical (General) History Medical History History ICD Code HTN High cholesterol Denies AK,DM,CVA,Lung disease,renal dise ase Negative screening colonosco py 2008 with me; Colonoscopy 01/2020 with 1 tubular adenoma removed in [place] Surgical History Surgery Date(Month/Year) carpal tunnel releases hip replacements bilateral rotator cuff tear repairs
--- OUTSIDE RECORDS SUMMARY | 2025-03-27 09:03 | XMS_ITS | Patient Health Record ---
Author Organization [facility] Address [address] [place] [address] Care Team Providers Care Harness Inspector Name Role Phone Ariel Guo DO Primary Care Provider Unavailab le Reason For Referral No Information Medications Medication SIG (Take, Route, Fr equency, Duration) Notes Start Date End Date Status Vitamin C Active Multi Vitamin Active Claritin Active Amoxicillin Active hydroCHLOROthiazide Active Sildenafil Citrate A ctive Acyclovir Active Golytely 236 GM as directed Orally s tart at noon day before procedure; Duration: 1 days 01/16/2020 Unknown Gas Relief Active [...] Problem Status W/U Status Risk Notes Problem Diverticulosis (K57.90) Active confirmed Plan Of Treatment Pending Test Test Name Order Date Surgical Pathology Report 01/24/2020 COVID19 (LC) 01/22/2020 Insurance Providers Payer Name Payer Address Payer Phone Subscriber Number Group Number Insured Name Patient Relationship to Insured Coverage Start Date Coverage End Date [facility]/[employer] [address] [address] [place] [phone] [id number] Ulysses Larkin Self - patient is the insured Medical (General) History Medical History History ICD Code Hypertension Surgical History Surgery Date(Month/Year) colonoscopy Tonsillectomy [place] [facility] Hip replacement Carpal Tunnel Hip revision Hernia
[2025-03-27 09:13] LABS: Hematocrit 41.5 % (42.0-52.0); Hemoglobin 14.9 g/dl (14.0-18.0); Imm Gran Abs Auto 0.03 X10*3/uL (0.00-0.03); Imm Gran Pct Auto 0.4 % (0.0-0.4); Lymphocytes Absolute Auto 2.6 X10*3/uL (1.2-4.9); Mean Corpuscular HGB Conc 35.9 g/dl (31.0-36.0); Mean Corpuscular Hemoglobin 33.0 pg (27.0-33.0); Mean Corpuscular Volume 91.8 fL (80.0-98.0); NRBC Abs Auto 0.000 X10*3/uL (0.0-0.012); NRBC Pct Auto 0.0 /100WBC (0.0-0.2); Platelet Count 249 X10*3/uL (160-400); Red Blood Count 4.52 X10*6/uL (4.60-5.80); White Blood Count 7.5 X10*3/uL (4.8-10.8)
[2025-03-27 10:42] LABS: Alanine Aminotransferase 33 U/L (0-40); Albumin Level 4.5 g/dL (3.5-5.0); Alkaline Phosphatase 83 U/L (39-117); Anion Gap 14 (12-20); Aspartate Amino Transferase 33 U/L (5-37); Blood Urea Nitrogen 16 mg/dL (9-16); Calcium 9.3 mg/dL (8.4-10.2); Carbon Dioxide 29 mmol/L (22-29); Chloride 95 mmol/L (96-108); Cholesterol 143 mg/dL (<200); Estimated Glomerular Filt Rate > 60; HDL Cholesterol 40 mg/dL (>40); Potassium 3.7 mmol/L (3.3-5.1); Sodium 134 mmol/L (135-145); Total Protein 7.5 g/dL (6.5-8.0); Triglycerides 235 mg/dL (<150)
== END 2025-03-27 08:54 | disposition home or self-care (01) ==
LOC: HO.LAB 08:53
PROVIDERS: Visit Provider Internal Medicine Medical Oncology
DX: I10 Essential (primary) hypertension (principal); E78.2 Mixed hyperlipidemia; H61.20 Impacted cerumen, unspecified ear; E55.9 Vitamin D deficiency, unspecified
CPT/HCPCS: 36415; 80053; 80061; 82306; 85025

== ENCOUNTER 2025-06-26 08:37 | Outpatient (REF) | payer MEDICARE, SELFPAY ==
--- OUTSIDE RECORDS SUMMARY | 2024-04-16 06:30 | XMS_ITS ---
Author Organization Ryan Goodwin III, MD Address [address] [place] [address] Care Team Providers Care Manager Cosmetics Name Role Phone Dr. Ryan Goodwin III Primary Care Provider [phone] Allergies Allergen (clinical drug ingredient) Drug/Non Drug Allergy documented on EMR Reaction Allergy Type Onset Date Status No Known Drug Allergy Unknown Drug Allergy Active REASON FOR VISIT Left rotator cuff pain, Benign prostatic hypertrophy, Cluster headaches, Hyperlipidemia, DJD lumbarspine, Chronic cough Medications Medication SIG (Take, Route, Frequency, Duration) Notes Start Date End Date Status Irbesartan 300 MG 1 tablet Orally Once a day Active Qxedjiinzz-XKSA-Ftmffgci 50-325-40 MG 1 tablet as needed for Headache Orally Once a day Active Acyclovir 200 MG 1 capsule Orally Fiv e times a day Active Benzonatate 100 MG 1 capsule as needed Orally Three times a day 03/28/2024 Active hydroCHLOROthiazide 25 MG 1 tablet in th e morning Orally Once a day Active Simvastatin 40 MG 1 tablet in the evening Orally Once a day Active Social History Tobacco Use: Social History Observation Description Date Details (start date - stop date) Former Smoker NA - NA Sex Assigned At : Social History Observation Description Sex Assigned At Male Tobacco Use/Smoking Question Answer Notes Patient is a former smoker How long has it been since you last smoked? > 10 years Additional Findings: Tobacco Non-User Ex-cigaret te smoker Vital Signs Temperature 98.2 degrees Fahrenheit 04/16/20 24 Blood pressure systolic 115 mm Hg 04/16/20 24 Blood pressure diastolic 82 mm Hg 024 Heart Rate 87 /min 04/16/2024 Height 71 in 04/16/2024 Weight 161 lbs 04/16/2024 BMI 22.45 kg/m2 04/16/2024 Encounters Encounter Location Date Provider Diagnosis Ryan Goodwin III, MD [address] [place] [address] [place] [address] 04/16/2024 Ryan Goodwin Benign prostatic hyperplasia, unspecified whether lower urinary tract symptoms present N40.0 ; Chronic cluster headache, not intractable G44.029 ; Essential hypertension I10 ; Mixed hyperlipidemia E78.2 ; Degenerative disc disease, lumbar M51.36 ; Former smoker Z87.891 ; 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 We have discussed lifestyle modification as a way to reduce nocturnal urination. 04/16/2024 Chronic cluster headache, not intractable (ICD-10 - G44.029) His headaches are mild and infrequent and are now controlled with medication. 04/16/2024 Essential hypertension (ICD-10 - I10) His blood pressure is in the normal range at 114/78 and no change in his regimen was needed today. 04/16/2024 Mixed hyperlipidemia (ICD-10 - E78.2) The fasting lipid profile shows good control of his lipids and no change in his regimen is necessary. 04/16/2024 Degenerative disc disease, lumbar (ICD-10 - M51.36) His back pain is minimal and well controlled with naproxen. No change in his regimen was dated today. 04/16/2024 Former smoker (ICD-10 - Z87.891) He is highly motivated not to smoke. We discussed a plan to prevent relapse in times of stress and illness. 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 No changes were made in his regimen. 04/16/2024 Idiopathic interstitial fibrosis (ICD-10 - J84.112) His chest x-ray suggested interferential fibrosis. His pulmonary function test showed mild impairment of DLCO. If he becomes symptomatic. He will see pulmonary. Plan Of Treatment Medication Medication Name Sig Start Date Stop Date Notes Irbesartan 300 MG 1 tablet Orally Once a day Ovgvzsxgek-HMJQ-Mxhmheer 50- 325-40 MG 1 tablet as needed for Headache Orally Once a day Acyclovir 200 MG 1 capsule Orally Fiv e times a day Benzonatate 100 MG 1 capsule as needed Orally Three times a day 03/28/2024 hydroCHLOROthiazide 25 MG 1 tablet in th e morning Orally Once a day Simvastatin 40 MG 1 tablet in the ing Orally Once a day Next Appt Details Follow Up: 6 Weeks, Reason: ov no tests Provider Name:Ryan Goodwin , 07/02/2025 11:00:00 AM, [address] [place] [address] [address], [place], [phone], Provider Name:Ryan Goodwin , 04/03/2026 10:00:00 AM, [address] [place] [address] [address], [place], [phone], Progress Notes * VANESSA Ulysses SDOB:1945 (78 yo M)Acc No.[id number]:04/16/2024 Progress Notes Patient: Ulysses Montalvo Provider: Casandra Goodwin MD :1945 A ge:78 Y S ex:Male Date:04/16/2024 Address:[address] [place] [address], [address], [id number] Subjective: * Chief Complaints: * L eft rotator cuff painBenign prostatic hypertrophyCluster headachesHyperlipidemiaDJD lumbar spineChronic cough * HPI: C OVID-19 Screening: He returns for review his medical issues. Recently he has been complaining of a chronic dry cough. It will not resolved. After trying several agents we most recently gave him. Benzoin a tape which she says has a bothersome cough and weight. His lungs were clear today. A recent chest x-ray showed possible pulmonary interstitial fibrosis. The pulmonary function test was ordered. This was consistent with early fibrosis and interstitial lung disease. He is currently asymptomatic. We have discussed followup and a referral to pulmonary if he develops any symptoms. His oxygen saturation today was 96%. Questions H ave you experienced fever, chills, cough, sore throat, shortness of breath, difficulty breathing, muscle aches, loss of taste or smell? N o H ave you been exposed to the virus within the last 10 days? N o H ave you travelled internationally in the last 10 days? N o H ave you been exposed to COVID-19 in the past? N o * ROS: G eneral/Constitutional: pain o nly normal aches and pains. C hills d enies.?Fatigue a dmits. F ever d enies. E NT: Decreased hearing d enies. R espiratory: Cough r esolved. C ardiovascular: Chest pain with exertion d enies. D yspnea on exertion?denies. S hortness of breath d enies. G astrointestinal: Constipation o ccasional. D ecreased appetite d enies. D iarrhea d enies. H eartburn d enies. N ausea d enies. R ectal bleeding d enies. V omiting d enies. H ematology: bruising d enies. p etechiae d enies. S wollen glands n one have been noted. G enitourinary: Frequent urination o nce a night. M usculoskeletal: Muscle aches d enies. P ainful joints d enies. S ciatica d enies. W eakness d enies. S kin: Itching d enies. R clarence d enies. S kin lesion(s)?denies. N eurologic: Difficulty speaking d enies. D izziness d enies.?Headache d enies. L ow back pain d enies. P sychiatric: Depressed mood d enies. * Medical History: * Surgical History: r ight inguinal hernia repair, , [facility] 1999right rotator cuff tear repair 2000basal cell carcinoma resected right cheek 2002left rotator cuff tear repair 08/2003repeat left rotator cuff tear repair 12/2010right hip replacement 09/2007revision right hip replacement 10/2012left hip repair 09/2005carpal tunnel release 2006colonoscopy, [facility], Dr. Ryan Bledsoe, negative 02/2009tonsillectomy left inguinal herniorraphy 2019colonoscopy, 5 year plan ilateral cataract surgeries ty removal 11/2021 * Hospitalization/Major Diagno stic Procedure: D enies Past Hospitalization * Family History: F ather: 89 yrs, dementia,uti, 3 times, no other information available. M other: 37 yrs, ovarian cancer, diagnosed with Cancer. S iblings: alive. P aternal Grand Mother: alive, diagnosed with DM. 1 brother(s) , 1 sister(s) - healthy. . His sister has adult-onset diabetes mellitus. His brother has adult onset diabetes mellitus, hypertension and osteoarthritis and a knee replacement. His paternal grandmother has adult-onset diabetes mellitus. The patient has no children. He is not aware of any family history of substance abuse disorder or addiction or mental illness. * Social History: T obacco Use: T obacco Use/Smoking P elpidio is a f ormer smoker H ow long has it been since you last smoked??> 10 years A dditional Findings: Tobacco Non-User E x-cigarette smoker Prashant billings was born in [place] and now lives in [place]. He is single with no children. 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 He works in [place], [place]. He rides a bicycle. * Medications: T akingSimvastatin 40 MG Tablet 1 tablet in the evening Orally Once a dayIrbesartan 300 MG Tablet 1 tablet Orally Once a dayAcyclovir 200 MG Capsule 1 capsule Orally Five times a mzuTwahrbikcg-AWXN-Wlvmqbld 50-325-40 MG Tablet 1 tablet as needed for Headache Orally Once a dayhydroCHLOROthiazide 25 MG Tablet 1 tablet in the morning Orally Once a dayBenzonatate 100 MG Capsule 1 capsule as needed Orally Three times a day, stop date 10/23/2024Medication List reviewed and reconciled with the patientTaking Simvastatin 40 MG Tablet 1 tablet in the evening Orally Once a dayTaking Irbesartan 300 MG Tablet 1 tablet Orally Once a dayTaking Acyclovir 200 MG Capsule 1 capsule Orally Five times a dayTaking Mcesvcejxe-ZWPT-Xqlttdxh 50-325-40 MG Tablet 1 tablet as needed for Headache Orally Once a dayTaking hydroCHLOROthiazide 25 MG Tablet 1 tablet in the morning Orally Once a dayTaking Benzonatate 100 MG Capsule 1 capsule as needed Orally Three times a day, stop date 10/23/2024Medication List reviewed and reconciled with the patient * Allergies: N o Known Drug Allergyno[Allergies Verified] Objective: * Vitals: H t: 71, Wt:161, BMI:22.45, BP:115/82, HR:87, Temp:98.2, Wt-k.03. * P ast Orders: I maging:XR chest 2V (Order Date - 03/29/2024) (Collection Date - 03/29/2024) Lab:URINE DIP STICK * Order Date 03/28/2024 03/23/2023 03/13/2021 SG 1.005 (Ref Range: 1.005 - 1.025) 1.010 (Ref Range: 1.005 - 1.025) 1.015 pH 6.0 (Ref Range: 5.0 - 9.0) 6.0 (Ref Range: 5.0 - 9.0) 6.5 GINI Negative (Ref Range: Negative -) Negative (Ref Range: Negative -) Negative NIT Negative (Ref Range: Negative -) Negative (Ref Range: Negative -) Negative PRO 15 (Ref Range: Negative - Trace) 15 (Ref Range: Negative - Trace) 15+- GLU Negative (Ref Range: Negative -) Negative (Ref Range: Negative -) Negative KET Negative (Ref Range: Negative -) Negative (Ref Range: Negative -) Negative UBG 0.2 (Ref Range: 0.1 - 1.8) 0.2 (Ref Range: 0.1 - 1.8) Negative RUDDY Negative (Ref Range: 0.2 - 1.3) Negative (Ref Range: 0.2 - 1.3) Negative BLD Negative (Ref Range: Negative -) Negative (Ref Range: Negative -) Negative Menstrating NR N/A NR * Examination: G eneral Examination: GENERAL APPEARANCE: p leasant, well nourished, well developed, in no acute distress, calm and relaxed , man. HEAD: a traumatic, normocephalic. EYES: e ryann, perrla, anicteric, conjugate. EARS: n ormal. NOSE: s eptum intact. ORAL CAVITY: n ormal, unremarkable. NECK/THYROID: n o jugular venous distention, no carotid bruit, thyroid normal. LYMPH NODES: n o enlarged lymph nodes,spleen normal. SKIN: n o suspicious lesions, anicteric. HEART: n o clicks, gallops, murmurs, or rubs, regular rhythm, S1, S2 normal, no s3, or vascular bruits. LUNGS: c lear to auscultation , diminished breath sounds throughout. BREASTS: no masses palpable bilaterally. ABDOMEN: b owel sounds normal, no ascites, no organomegaly, no mass. RECTAL EXAM: n ot examined. MUSCULOSKELETAL: e xtremities unremarkable, no clubbing, cyanosis or edema. PERIPHERAL PULSES: n ormal. NEUROLOGIC: a lert and oriented, cranial nerves 2-12 grossly intact, deep tendon reflexes 2+ symmetrical, motor strength normal upper and lower extremities, sensory exam intact. PSYCH: a lert, oriented. Assessment: * Assessment: 1. B enign prostatic hyperplasia, unspecified whether lower urinary tract symptoms present - N40.0 (Primary), He rises from sleep once or twice a night to urinate. We have discussed lifestyle modification as a way to reduce nocturnal urination. 2 . C hronic cluster headache, not intractable - G44.029, His headaches are mild and infrequent and are now controlled with medication. 3 . E ssential hypertension - I10, His blood pressure is in the normal range at 114/78 and no change in his regimen was needed today. 4 . M ixed hyperlipidemia - E78.2, The fasting lipid profile shows good control of his lipids and no change in his regimen is necessary. 5 . D egenerative disc disease, lumbar - M51.36, His back pain is minimal and well controlled with naproxen. No change in his regimen was dated today. 6 . F ormer smoker - Z87.891, He is highly motivated not to smoke. We discussed a plan to prevent relapse in times of stress and illness. 7 . S udden idiopathic hearing loss of right ear with unrestricted hearing of left ear - H91.21, He has experienced no change in his hearing in either since his last visit. No changes were made in his regimen. 8 . I diopathic interstitial fibrosis - J84.112, His chest x-ray suggested interferential fibrosis. His pulmonary function test showed mild impairment of DLCO. If he becomes symptomatic. He will see pulmonary. Plan: * Treatment: * Procedure Codes: * Preventive Medicine: Counseling: S moking/Tobacco Use Patient counseled on the dangers of tobacco use and urged to quit. 0 04/16/2024 * Follow Up: 6 Weeks (Reason: ov no tests ) * Images: * Sign off status: Completed true * Provider: Casandra Goodwin MD Date: 0 04/16/2024 Generated for Naeli ng/Baylee/Rochellesmitting on: 1 08/26/2024 08:58 AM EST History and Physical Notes * HPI (History of Present Illness) Category Sub-Category Detail Notes COVID-19 Screening Questions Have you had any new onset fever, chills, cough, congestion, sore throat, shortness of breath, muscle aches?: No Have you been exposed to the virus withi n the last 10 days?: No Have you travelled internationally in e last 10 days?: No Have you been exposed to COVID-19 in the past?: No Examination Category Sub-Category Detail Notes General Examination GENERAL APPEARANCE: pleasant , well nourished, well developed, in no acute distress, calm and relaxed , man HEAD: atraumatic, normocep halic EYES: eomi, perrla, anicte peter, conjugate EARS: normal NOSE: septum intact NECK/THYROID: no jugular venous di stention, no carotid bruit, thyroid normal HEART: no clicks, gallops, murmurs, or rubs, regular rhythm, S1, S2 normal, no s3, or vascular bruits LUNGS: clear to auscultatio n , diminished breath sounds throughout ABDOMEN: bowel sounds normal, no ascites, no organomegaly, no mass NEUROLOGIC: alert and oriented, cranial nerves 2-12 grossly intact, deep tendon reflexes 2+ symmetrical, motor strength normal upper and lower extremities, sensory exam intact SKIN: no suspicious lesion s, anicteric PERIPHERAL PULSES: normal BREASTS: no masses palpable b ilaterally MUSCULOSKELETAL: extremities unremark able, no clubbing, cyanosis or edema LYMPH NODES: no enlarged lymph no siobhan,spleen normal RECTAL EXAM: not examined PSYCH: alert, oriented ORAL CAVITY: normal, unremarkable
--- OUTSIDE RECORDS SUMMARY | 2024-05-28 06:00 | XMS_ITS ---
Author Organization Ryan Goodwin III, MD Address [address] [place] [address] Care Team Providers Care Hadoop Admin Name Role Phone Dr. Ryan Goodwin III Primary Care Provider [phone] Allergies Allergen (clinical drug ingredient) Drug/Non Drug Allergy documented on EMR Reaction Allergy Type Onset Date Status No Known Drug Allergy Unknown Drug Allergy Active REASON FOR VISIT Benign prostatic hypertrophy, Chronic cluster headache, Hypertension, Hyperlipidemia, Right hearingloss, Allergies, Degenerative disc disease lumbar spine Medications Medication SIG (Take, Route, Frequency, Duration) Notes Start Date End Date Status hydroCHLOROthiazide 25 MG 1 tablet in th e morning Orally Once a day Active Acyclovir 200 MG 1 capsule Orally Fiv e times a day Active Irbesartan 300 MG 1 tablet Orally Once a day Active Simvastatin 40 MG 1 tablet in the evening Orally Once a day Active Dllkexkulh-BAEX-Kbjpshif 50-325-40 MG TAKE 1 TABLET BY MOUTH EVERY DAY NEEDED FOR HEADACHE Active Benzonatate 100 MG 1 capsule as needed Orally Three times a day 03/28/2024 Active Social History Tobacco Use: Social History [...] Non-User Ex-cigaret te smoker Vital Signs Temperature 97.3 degrees Fahrenheit 05/28/20 24 Blood pressure systolic 120 mm Hg 05/28/20 24 Blood pressure diastolic 77 mm Hg 024 Heart Rate 89 /min 05/28/2024 Height 71 in 05/28/2024 Weight 161 lbs 05/28/2024 BMI 22.45 kg/m2 05/28/2024 Encounters Encounter Location Date Provider Diagnosis Ryan Goodwin III, MD [address] [place] [place] [address] [place] [address] 05/28/2024 Ryan Goodwin Mixed hyperlipidemia E78.2 ; Chronic cluster headache, not intractable G44.029 ; Benign prostatic hyperplasia, unspecified whether lower urinary tract symptoms present N40.0 ; Essential hypertension I10 ; Degenerative disc disease, lumbar M51.36 ; Seasonal allergic rhinitis, unspecified trigger J30.2 ; Vitamin D deficiency E55.9 and Pulmonary fibrosis J84.10 Assessments Encounter Date Diagnosis (ICD Code) Assessment Notes Treat ment Notes Treatment Clinical Notes 05/28/2024 Mixed hyperlipidemia (ICD-10 - E78.2) Comprehensive blood work with a fasting lipid profile has been ordered prior to his next visit. No change in his regimen was made today. 05/28/2024 Chronic cluster headache, not intractable (ICD-10 - G44.029) His headaches are mild and infrequent and are now controlled with medication. 05/28/2024 Benign prostatic hyperplasia, unspecified whether lower urinary tract symptoms present (ICD-10 - N40.0) He rises from sleep once or twice a night to urinate. We have discussed lifestyle modification as a way to reduce nocturnal urination. 05/28/2024 Essential hypertension (ICD-10 - I10) His blood pressure is in the normal range at 114/78 and no change in his regimen was needed today. 05/28/2024 Degenerative disc disease, lumbar (ICD-10 - M51.36) His back pain is minimal and well controlled with naproxen. No change in his regimen was dated today. 05/28/2024 Seasonal allergic rhinitis, unspecified trigger (ICD-10 - J30.2) He is having no symptoms at the current time. He will be in touch if symptoms develop. He found pollen season this spring to be severe. 05/28/2024 Vitamin D deficiency (ICD-10 - E55.9) He was continued on vitamin D. 05/28/2024 Pulmonary fibrosis (ICD-10 - J84.10) The x-ray done in September of this year showed chronic fibrotic interstitial disease. The pulmonary functionn tests are consistent with mild interstitial fibrosis. His symptoms have resolved. He will be referred to pulmonary if they return. Plan Of Treatment Medication Medication Name Sig Start Date Stop Date Notes hydroCHLOROthiazide 25 MG 1 tablet in th e morning Orally Once a day Acyclovir 200 MG 1 capsule Orally Fiv e times a day Irbesartan 300 MG 1 tablet Orally Once a day Simvastatin 40 MG 1 tablet in the even ing Orally Once a day Wracqwgcqm-ILMI-Pehqwzsr 50- 325-40 MG TAKE 1 TABLET BY MOUTH EVERY DAY NEEDED FOR HEADACHE Benzonatate 100 MG 1 capsule as needed Orally Three times a day 03/28/2024 Pending Test Test Name Order Date PROFILE, FASTING (COMPREHENSIVE METABOLI C) 05/28/2024 CBC WITH AUTO DIFF 05/28/2024 Lipid Panel 05/28/2024 Next Appt Details Follow Up: 3 Months, Reason: OV Provider Name:Ryan Goodwin , 07/02/2025 11:00:00 AM, [address] [place] [address] [address], [place], [address], Provider Name:Ryan Goodwin , 04/03/2026 10:00:00 AM, [address] [place] [address] [address], [place], [address], Progress Notes * Ulysses LARKIN SDOB:1945 (78 yo M)Acc No.[id number]:05/28/2024 Progress Notes Patient: Ulysses PLAZA Provider: Casandra Goodwin MD :1945 A ge:78 Y S ex:Male Date:05/28/2024 Address:[address] [place] [address] RD, [address], [id number] Subjective: * Chief Complaints: * B enign prostatic hypertrophyChronic cluster headacheHypertensionHyperlipidemiaRight hearing lossAllergiesDegenerative disc disease lumbar spine * HPI: C OVID-19 Screening: He returns for medical management. His low back pain is present but has been mild and does not prevent him from the activities of daily life. He has been rising from sleep once or twice a night to urinate. We have discussed lifestyle modifications he could make to reduce nocturia. His vital signs are stable today. His hearing loss is unchanged. He continues to have frequent headaches but they are mild and controlled with medication. On April 14, 2024 pulmonary function tests were done to evaluate his complaints of cough and shortness of breath with exertion. He reported is that it is consistent with mild interstitial disease based on diffusion capacity reduction. His volumes were unremarkable. His symptoms have resolved and this will be observed. Should his symptoms increase he will be referred to pulmonary. Questions H ave you experienced fever, chills, [...] N o * ROS: G eneral/Constitutional: pain L ow back pain, otherwise only normal aches and pains.?Chills d enies. F atigue a dmits. F ever d enies. E NT: Decreased hearing i n the right ear. R espiratory: Cough d enies. C ardiovascular: Chest pain with exertion d [...] History: r ight inguinal hernia repair, , [facility] 1999right rotator cuff tear repair 2000basal cell carcinoma resected right cheek 2002left rotator cuff tear repair 08/2003repeat left rotator cuff tear repair 12/2010right hip replacement 09/2007revision right hip replacement 10/2012left hip repair 09/2005carpal tunnel release 2006colonoscopy, [facility], Dr. Ryan Bledsoe, negative 02/2009tonsillectomy left inguinal herniorraphy 2019colonoscopy, 5 year plan ilateral cataract surgeries ty removal 11/2021 * Hospitalization/Major Diagno stic Procedure: Abebe dawson Past Hospitalization * Family History: F ather: [...] T obacco Use: T obacco Use/Smoking P atdiane is a f ormer smoker H ow long has it been since you last smoked??> 10 years A dditional Findings: Tobacco Non-User E x-cigarette smoker Prashant billings was born in [place] and now lives in [place]. He is single with no children. 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 He works in [place], [place]. He rides a bicycle. * Medications: T akingSimvastatin 40 MG Tablet 1 tablet in the evening Orally Once a day Irbesartan 300 MG Tablet 1 tablet Orally Once a day Acyclovir 200 MG Capsule 1 capsule Orally Five times a day hydroCHLOROthiazide 25 MG Tablet 1 tablet in the morning Orally Once a day Benzonatate 100 MG Capsule 1 capsule as needed Orally Three times a day Ebghfzmvmw-ZZMD-Irxsemfz 50-325-40 MG Tablet TAKE 1 TABLET BY MOUTH EVERY DAY NEEDED FOR HEADACHE Medication List reviewed and reconciled with the patientTaking Simvastatin 40 MG Tablet 1 tablet in the evening Orally Once a day Taking Irbesartan 300 MG Tablet 1 tablet Orally Once a day Taking Acyclovir 200 MG Capsule 1 capsule Orally Five times a day Taking hydroCHLOROthiazide 25 MG Tablet 1 tablet in the morning Orally Once a day Taking Benzonatate 100 MG Capsule 1 capsule as needed Orally Three times a day Taking Avblwoezsw-XUMV-Aomyjozw 50-325-40 MG Tablet TAKE 1 TABLET BY MOUTH EVERY DAY NEEDED FOR HEADACHE Medication List reviewed and reconciled with the patient * Allergies: N o Known Drug Allergyno[Allergies Verified] Objective: * Vitals: H t: 71, Wt:161, BMI:22.45, BP:120/77, HR:89, Temp:97.3, Wt-k.03. * P ast Orders: Imaging:XR chest 2V * Performed Date 03/29/2024 10/18/2022 01/27/2022 10:15 AM 09:40 AM 03:58 PM Order Date 03/29/2024 10/18/2022 01/27/2022 * Lab:URINE DIP STICK * Collection Date 03/28/2024 03/23/2023 03/13/2021 Collection Time 02:29 PM Order Date 03/28/2024 03/23/2023 03/13/2021 SG 1.005 [...] developed, in no acute distress, calm and relaxed, man. HEAD: a traumatic, normocephalic. EYES: e ryann, perrla, anicteric, conjugate. EARS: H earing loss present in the right ear normal on the left. NOSE: s eptum intact. ORAL CAVITY: n ormal, unremarkable. NECK/THYROID: n o jugular venous distention, no carotid bruit, thyroid normal. LYMPH NODES: n o enlarged lymph nodes,spleen normal. SKIN: n o suspicious lesions, anicteric. HEART: n o clicks, gallops, murmurs, or rubs, regular rhythm, S1, S2 normal, no s3, or vascular bruits. LUNGS: c lear to auscultation . BREASTS: no masses palpable bilaterally. ABDOMEN: b [...] a lert, oriented. Assessment: * Assessment: 1. C hronic cluster headache, not intractable - G44.029 (Primary) N otes :His headaches are mild and infrequent and are now controlled with medication. 2 . M ixed hyperlipidemia - E78.2 N otes :Comprehensive blood work with a fasting lipid profile has been ordered prior to his next visit.? No change in his regimen was made today. 3 . B enign prostatic hyperplasia, unspecified whether lower urinary tract symptoms present - N40.0 N otes :He rises from sleep once or twice a night to urinate. We have discussed lifestyle modification as a way to reduce nocturnal urination. 4 . E ssential hypertension - I10 N otes :His blood pressure is in the normal range at 114/78 and no change in his regimen was needed today. 5 . D egenerative disc disease, lumbar - M51.36 N otes :His back pain is minimal and well controlled with naproxen. No change in his regimen was dated today. 6 . S easonal allergic rhinitis, unspecified trigger - J30.2 N otes :He is having no symptoms at the current time. He will be in touch if symptoms develop. He found pollen season this spring to be severe. 7 . V itamin D deficiency - E55.9 N otes :He was continued on vitamin D. 8 . P ulmonary fibrosis - J84.10 N otes :The x-ray done in September of this year showed chronic fibrotic interstitial disease. The pulmonary functionn tests are consistent with mild interstitial fibrosis. His symptoms have resolved. He will be referred to pulmonary if they return. Plan: * Treatment: 2. O thers Continue Lszegmnhzl-PRKT-Vyqhtdwl Tablet, 50-325-40 MG, TAKE 1 TABLET BY MOUTH EVERY DAY NEEDED FOR HEADACHE; C ontinue Simvastatin Tablet, 40 MG, 1 tablet in the evening, Orally, Once a day; Continue Irbesartan Tablet, 300 MG, 1 tablet, Orally, Once a day; C ontinue Acyclovir Capsule, 200 MG, 1 capsule, Orally, Five times a day; C ontinue hydroCHLOROthiazide Tablet, 25 MG, 1 tablet in the morning, Orally, Once a day; C ontinue Benzonatate Capsule, 100 MG, 1 capsule as needed, Orally, Three times a day. * Procedure Codes: * Follow Up: 3 Months (Reason: OV) * Images: * Sign off status: Completed true * Provider: Casandra Goodwin MD Date: Generated for Vincenzo rao/Baylee/Tu on: 08/26/2024 08:57 AM EST History and Physical Notes * [...] developed, in no acute distress, calm and relaxed, man HEAD: atraumatic, normocep halic EYES: eomi, perrla, anicte peter, conjugate EARS: Hearing loss present in the right ear normal on the left NOSE: septum intact NECK/THYROID: no jugular venous di stention, no carotid bruit, thyroid normal HEART: no clicks, gallops, murmurs, or rubs, regular rhythm, S1, S2 normal, no s3, or vascular bruits LUNGS: clear to auscultatio n ABDOMEN: bowel sounds normal, no ascites, no [...]
--- OUTSIDE RECORDS SUMMARY | 2024-06-27 12:00 | XMS_ITS ---
Author Organization Ryan Goodwin III, MD Address [address] [place] [address] [address] [place] [address] Care Team Providers Care Heel Shaper Name Role Phone Dr. Ryan Goodwin III Primary Care Provider REASON FOR VISIT follow up Social History Sex Assigned At : Social History Observation Description Sex Assigned At Male Encounters Encounter Location Date Provider Diagnosis Ryan Goodwin III, MD [address] [place] [address] [place] [address] 06/27/2024 Ryan Goodwin Plan Of Treatment Next Appt Details Provider Name:Ryan Goodwin , 07/02/2025 11:00:00 AM, [address] [place] [address] [address], [address], Provider Name:Ryan Goodwin , 04/03/2026 10:00:00 AM, [address] [place] [address] [place], [address], Progress Notes * Ulysses LARKIN SDOB:1945 (79 yo M)Acc No.[id number]:06/27/2024 Progress Notes Patient: Ulysses PLAZA Provider: Casandra Goodwin MD :1945 A ge:78 Y S ex:Male Date:06/27/2024 Address:[address] [place] [address], [id number] Subjective: * Chief Complaints: * 1 . Follow up. * Medical History: Objective: * Vitals: Assessment: Plan: * Treatment: * Images: * The named appointment provid er may or may not be the originator of this progress note, and it is not deemed complete until electronically signed by the appointment provider. Sign off status: Pending * Provider: Casandra Goodwin MD Date: 08/27/2023 Generated for Vincenzo rao/Baylee/Tu on: 08/26/2024 08:58 AM EST
--- OUTSIDE RECORDS SUMMARY | 2024-08-20 10:45 | XMS_ITS ---
Author Organization Ryan Goodwin III, MD Address [address] [place] [address] [place] [address] Care Team Providers Care Kier Hand Name Role Phone Dr. Ryan Goodwin III Primary Care Provider Allergies Allergen (clinical drug ingredient) Drug/Non Drug Allergy documented on EMR Reaction Allergy Type Onset Date Status No Known Drug Allergy Unknown Drug Allergy Active REASON FOR VISIT Ear Irrigation Medications Medication SIG (Take, Route, Frequency, Duration) Notes Start Date End Date Status Simvastatin 40 MG 1 tablet every evening Orally Once a day Active hydroCHLOROthiazide 25 MG 1 tablet in th e morning Orally Once a day Active Acyclovir 200 MG 1 capsule Orally Fiv e times a day Active Fsyffwgpfh-GMBE-Ckjrccra 50-325-40 MG 1 Tablet Orally Once a day As needed Active Benzonatate 100 MG 1 capsule as needed Orally Three times a day 03/28/2024 Active Irbesartan 300 MG 1 tablet Orally Once a day Active Social History Sex Assigned At : Social History Observation Description Sex Assigned At Male Encounters Encounter Location Date Provider Diagnosis Ryan Goodwin III, MD [address] [place] [address] [place] [address] 08/20/2024 Ryan Goodwin Impacted cerumen, unspecified ear H61.20 ; Benign prostatic hyperplasia, unspecified whether lower urinary tract symptoms present N40.0 ; Chronic cluster headache, not intractable G44.029 and Essential hypertension I10 Assessments Encounter Date Diagnosis (ICD Code) Assessment Notes Treatment Notes Treatment Clinical Notes 08/20/2024 Impacted cerumen, unspecified ear (ICD-10 - H61.20) Both ears were impacted. Both impactions were removed without trauma. He tolerated procedure well and reported improved hearing at once. He will return as scheduled. 08/20/2024 Benign prostatic hyperplasia, unspecified whether lower urinary tract symptoms present (ICD-10 - N40.0) He rises from sleep once or twice a night to urinate. We have discussed lifestyle modification as a way to reduce nocturnal urination. 08/20/2024 Chronic cluster headache, not intractable (ICD-10 - G44.029) His headaches are mild and infrequent and are now controlled with medication. 08/20/2024 Essential hypertension (ICD-10 - I10) His blood pressure is in the normal range at 114/78 and no change in his regimen was needed today. Plan Of Treatment Medication Medication Name Sig Start Date Stop Date Notes Simvastatin 40 MG 1 tablet every eveni ng Orally Once a day hydroCHLOROthiazide 25 MG 1 tablet in th e morning Orally Once a day Acyclovir 200 MG 1 capsule Orally Fiv e times a day Tkweckcphv-JBAM-Ertmifln 50- 325-40 MG 1 Tablet Orally Once a day Benzonatate 100 MG 1 capsule as needed Orally Three times a day 03/28/2024 Irbesartan 300 MG 1 tablet Orally Once a day Next Appt Details Follow Up: as scheduled, Rosa son: ov review labs Provider Name:Ryan Goodwin , 07/02/2025 11:00:00 AM, [address] [place] [address] [address], [place], [id number], Provider Name:Ryan Goodwin , 04/03/2026 10:00:00 AM, [address] [place] [address] [address], [place], [phone], Procedure Notes * Category Sub-Category Detail Notes Ear lavage Procedure Post-procedure Successful Progress Notes * Ulysses LARKIN SDOB:1945 (78 yo M)Acc No.[id number]:08/20/2024 Patient: Ulysses PLAZA Provider: Casandra Goodwin MD :1945 A ge:78 Y S ex:Male Date:08/20/2024 Address:[address] [place] [address], [id number] Subjective: * Chief Complaints: * E ar Irrigation * HPI: v : He has used 4 drops of Debrox in each ear for 7 days and comes to the office for cerumen disimpaction. Both ears were irrigated with warm water with full of the impaction and improvement in hearing. No trauma occurred. The skin of his ear canals remained intact. He lleft the office and ambulatory in stable condition. * ROS: P rior to the procedure he denied any headache diplopia neck pain neck stiffness shortness of breath cough chest pain palpitations nausea vomiting diarrhea joint pain or bleeding. * Medical History: * Medications: T akingIrbesartan 300 MG Tablet 1 tablet Orally Once a day Acyclovir 200 MG Capsule 1 capsule Orally Five times a day hydroCHLOROthiazide 25 MG Tablet 1 tablet in the morning Orally Once a day Benzonatate 100 MG Capsule 1 capsule as needed Orally Three times a day Mixrempubw-GEJT-Vkrjeazu 50-325-40 MG Tablet 1 Tablet Orally Once a day As neededSimvastatin 40 MG Tablet 1 tablet every evening Orally Once a day Taking Irbesartan 300 MG Tablet 1 tablet Orally Once a day Taking Acyclovir 200 MG Capsule 1 capsule Orally Five times a day Taking hydroCHLOROthiazide 25 MG Tablet 1 tablet in the morning Orally Once a day Taking Benzonatate 100 MG Capsule 1 capsule as needed Orally Three times a day Taking Pygnyyqihz-RONC-Wlxeques 50-325-40 MG Tablet 1 Tablet Orally Once a day As neededTaking Simvastatin 40 MG Tablet 1 tablet every evening Orally Once a day * Allergies: N o Known Drug Allergy Objective: * Vitals: Assessment: * Assessment: 1. I mpacted cerumen, unspecified ear - H61.20 (Primary) N otes :Both ears were impacted. Both impactions were removed without trauma. He tolerated procedure well and reported improved hearing at once. He will return as scheduled. 2 . B enign prostatic hyperplasia, unspecified whether lower urinary tract symptoms present - N40.0 N otes :He rises from sleep once or twice a night to urinate. We have discussed lifestyle modification as a way to reduce nocturnal urination. 3 . C hronic cluster headache, not intractable - G44.029 N otes :His headaches are mild and infrequent and are now controlled with medication. 4 . E ssential hypertension - I10 N otes :His blood pressure is in the normal range at 114/78 and no change in his regimen was needed today. Plan: * Treatment: * Procedures: E ar lavage: Procedure _ ____. Post-procedure S uccessful. * Procedure Codes: 6 9210 EAR IRRIGATION * Follow Up: a s scheduled (Reason: ov review labs) * Images: * Sign off status: Completed true * Provider: Casandra Goodwin MD Date: Generated for Vincenzo rao/Baylee/Kristaitting on: 08/26/2024 08:57 AM EST
--- OUTSIDE RECORDS SUMMARY | 2024-09-17 12:30 | XMS_ITS ---
Author Organization Ryan Goodwin III, MD Address [address] [place] [address] [address] [place] [address] Care Team Providers Care Insurance And Benefits Clerk Name Role Phone Dr. Ryan Goodwin III Primary Care Provider REASON FOR VISIT Follow Up Social History Sex Assigned At : Social History Observation Description Sex Assigned At Male Encounters Encounter Location Date Provider Diagnosis Ryan Goodwin III, MD [address] [place] [address] [place] [address] 09/17/2024 Ryan Goodwin Plan Of Treatment Next Appt Details Provider Name:Ryan Goodwin , 07/02/2025 11:00:00 AM, [address] [place] [address] [place], [phone], Provider Name:Ryan Goodwin , 04/03/2026 10:00:00 AM, [address] [place] [address] [place], [address], Progress Notes * Ulysses LARKIN SDOB:1945 (79 yo M)Acc No.[id number]:09/17/2024 Progress Notes Patient: Ulysses PLAZA Provider: Casandra Goodwin MD :1945 A ge:78 Y S ex:Male Date:09/17/2024 Address:[address] [place] [address], [place] [id number] Subjective: * Chief Complaints: * 1 . Follow Up. * Medical History: Objective: * Vitals: Assessment: Plan: * Treatment: * Images: * The named appointment provid er may or may not be the originator of this progress note, and it is not deemed complete until electronically signed by the appointment provider. Sign off status: Pending * Provider: Casandra Goodwin MD Date: 0 09/17/2024 Generated for Vincenzo rao/Baylee/Tu on: 08/26/2024 08:58 AM EST
--- OUTSIDE RECORDS SUMMARY | 2024-09-25 10:15 | XMS_ITS ---
Author Organization Ryan Goodwin III, MD Address [address] [place] [address] Care Team Providers Care Tailor Fitter Name Role Phone Dr. Ryan Goodwin III Primary Care Provider Allergies Allergen (clinical drug ingredient) Drug/Non Drug Allergy documented on EMR Reaction Allergy Type Onset Date Status No Known Drug Allergy Unknown Drug Allergy Active Reason For Referral Reason Consult and Treat Screen for Colon Cancer Diagnosis 1 Screen for colon can cer (Z12.11) Referral Organization Ryan Goodwin III, MD Referring Provider First Name Ryan Referring Provider Last Name Christa Referring Provider Speciality Internal M edicine Referred Provider Ryan Bledsoe Referred Provider Specialty Gastroentero logy General Notes Roslyn Alvarado CMA 10/01 09:41:02 AM referral and progress note faxed to Dr Mckinney office, Roslyn Alvarado CMA 10/01/2024 11:15:03 AM >I called Dr Mckinney's office they stated patient was seen while inpt by Dr Bledsoe back in 2008 he was due for his follow up colonscopy in 2019. I made patient appt with Dr Bledsoe for 01/30/2025 at 1:20pm in office for consult for screening colonoscopy. Infomation mailed to patient Referral Priority Routine Referral Appointment Date 01/30/2025 REASON FOR VISIT Improved headaches, Improved hearing, Benign prostatic hypertrophy, HypertensionBack pain Medications Medication SIG (Take, Route, Frequency, Duration) Notes Start Date End Date Status Irbesartan 300 MG 1 tablet Orally Once a day Active Acyclovir 200 MG 1 capsule Orally Fiv e times a day Active Benzonatate 100 MG 1 capsule as needed Orally Three times a day 03/28/2024 Active Wuivpfxxlj-VXDS-Gnndyvhx 50-325-40 MG 1 Tablet Orally Once a day As needed Active Simvastatin 40 MG 1 tablet every evening Orally Once a day Active hydroCHLOROthiazide 25 MG 1 tablet in morning Orally Once a day Active Social History [...] Non-User Ex-cigaret te smoker Vital Signs Temperature 97.0 degrees Fahrenheit 09/25/19 25 Blood pressure systolic 91 mm Hg 09/25/19 25 Blood pressure diastolic 64 mm Hg 025 Heart Rate 90 /min 09/25/2024 Height 71 in 09/25/2024 Weight 163 lbs 09/25/2024 BMI 22.73 kg/m2 09/25/2024 Encounters Encounter Location Date Provider Diagnosis Ryan Goodwin III, MD [address] [place] [address] [place] [address] 09/25/2024 Ryan Goodwin Impacted cerumen, unspecified ear H61.20 ; Chronic cluster headache, not intractable G44.029 ; Essential hypertension I10 ; Benign prostatic hyperplasia, unspecified whether lower urinary tract symptoms present N40.0 ; Mixed hyperlipidemia E78.2 ; Degenerative disc disease, lumbar M51.36 and Former smoker Z87.891 Assessments Encounter Date Diagnosis (ICD Code) Assessment Notes Treat ment Notes Treatment Clinical Notes 09/25/2024 Impacted cerumen, unspecified ear (ICD-10 - H61.20) Both ears remain free of cerumen. 09/25/2024 Chronic cluster headache, not intractable (ICD-10 - G44.029) His headaches are mild and infrequent and are now controlled with medication. 09/25/2024 Essential hypertension (ICD-10 - I10) His blood pressure is currently stable. No changes in his regimen were needed. 09/25/2024 Benign prostatic hyperplasia, unspecified whether lower urinary tract symptoms present (ICD-10 - N40.0) He rises from sleep once or twice a night to urinate. We have discussed lifestyle modification as a way to reduce nocturnal urination. 09/25/2024 Mixed hyperlipidemia (ICD-10 - E78.2) Comprehensive blood work with a fasting lipid profile has been ordered prior to his next visit. No change in his regimen was made today. 09/25/2024 Degenerative disc disease, lumbar (ICD-10 - M51.36) His back pain is minimal and well controlled with naproxen. No change in his regimen was dated today. 09/25/2024 Former smoker (ICD-1 0 - Z87.891) He is highly motivated not to smoke. We discussed a plan to prevent relapse in times of stress and illness. Plan Of Treatment Medication Medication Name Sig Start Date Stop Date Notes Irbesartan 300 MG 1 tablet Orally Once a day Acyclovir 200 MG 1 capsule Orally Fiv e times a day Benzonatate 100 MG 1 capsule as needed Orally Three times a day 03/28/2024 Fenbmyhtsk-RGCA-Ipiiawvi 50- 325-40 MG 1 Tablet Orally Once a day Simvastatin 40 MG 1 tablet every eveni ng Orally Once a day hydroCHLOROthiazide 25 MG 1 tablet in th e morning Orally Once a day Pending Test Test Name Order Date PROFILE, FASTING (COMPREHENSIVE METABOLI C) 09/25/2024 PSA, TOTAL 09/25/2024 CBC WITH AUTO DIFF 09/25/2024 Lipid Panel 09/25/2024 Referrals Referral Date Details 09/25/2024 09/25/2024, Consult and Treat Screen for Colon Cancer, Ryan Bledsoe Next Appt Details Follow Up: 4 Months, In four months after blood work, Reason: OV, To check patient's PSS and overall health status Provider Name:Ryan Goodwin , 07/02/2025 11:00:00 AM, [address] [place] [address] [address], [place], [address], Provider Name:Ryan Goodwin , 04/03/2026 10:00:00 AM, [address] [place] [address] [address], [place], [address], Progress Notes * Ulysses LARKIN SDOB:1945 (78 yo M)Acc No.[id number]:09/25/2024 Progress Notes Patient: Ulysses PLAZA S Provider: Casandra Goodwin MD :1945 A ge:78 Y S ex:Male Date:09/25/2024 Address:[address] [place] [address], [address], [place], [id number] Subjective: * Chief Complaints: * I mproved headachesImproved hearingBenign prostatic hypertrophyHypertensionBack pain * HPI: C OVID-19 Screening: Questions H ave you had any new onset fever, chills, cough, congestion, sore throat, shortness of breath, muscle aches? N o * : The patient, a 78-year-old male, presented with a persistent cough that has improved by 80 to 90% after taking prescribed benzonatate. He also reported occasional headaches, which he manages with Advil or Tylenol. The patient sleeps well and maintains a good diet. He reported no issues with breathing. He has received COVID-19 and pneumonia vaccinations, but has not received the RSV vaccine. The patient also mentioned a positive Cologuard test and a subsequent colonoscopy in January 2020, which revealed a tubular adenoma. The patient is due for another colonoscopy in January 2025. * ROS: G eneral/Constitutional: pain o nly normal aches and pains. C hills d enies.?Fatigue a dmits. F ever d enies. E NT: Decreased hearing m ild. R espiratory: Cough d enies. C ardiovascular: [...] have been noted. G enitourinary: Frequent urination d enies. M usculoskeletal: Muscle aches d enies. P [...] History: r ight inguinal hernia repair, , [facility] 1999right rotator cuff tear repair 2000basal cell carcinoma resected right cheek 2002left rotator cuff tear repair 08/2003repeat left rotator cuff tear repair 12/2010right hip replacement 09/2007revision right hip replacement 10/2012left hip repair 09/2005carpal tunnel release 2005colonoscopy, [facility], Dr. Ryan Bledsoe, negative 02/2009tonsillectomy left inguinal herniorraphy 2019colonoscopy, 5 year plan ilateral cataract surgeries ty removal 11/2021No history * Hospitalization/Major Diagno stic Procedure: N o history * Family History: F ather: 89 yrs, dementia,uti, 3 times, no other information available. M other: 37 yrs, diagnosed with Cancer. S iblings: alive. P [...] abuse disorder or addiction or mental illness. Patient's father lived to 89, mother at 37. * Social History: T obacco Use: T obacco Use/Smoking P atdiane is a f ormer smoker H ow long has it been since you last smoked??> 10 years A dditional Findings: Tobacco Non-User E x-cigarette smoker Prashant billings was born in [place] and now lives in [place]. He is single with no children. 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 He works in [place], [place]. He rides a bicycle. * Medications: T akingIrbesartan 300 MG Tablet 1 tablet Orally Once a day Acyclovir 200 MG Capsule 1 capsule Orally Five times a day hydroCHLOROthiazide 25 MG Tablet 1 tablet in the morning Orally Once a day Benzonatate 100 MG Capsule 1 capsule as needed Orally Three times a day Yxihbxvmzh-GTZW-Bgkbsvzv 50-325-40 MG Tablet 1 Tablet Orally Once a day As neededSimvastatin 40 MG Tablet 1 tablet every evening Orally Once a day Medication List reviewed and reconciled with the patientTaking Irbesartan 300 MG Tablet 1 tablet Orally Once a day Taking Acyclovir 200 MG Capsule 1 capsule Orally Five times a day Taking hydroCHLOROthiazide 25 MG Tablet 1 tablet in the morning Orally Once a day Taking Benzonatate 100 MG Capsule 1 capsule as needed Orally Three times a day Taking Crzwhzpgus-HSWM-Kktogqhe 50-325-40 MG Tablet 1 Tablet Orally Once a day As neededTaking Simvastatin 40 MG Tablet 1 tablet every evening Orally Once a day Medication List reviewed and reconciled with the patient * Allergies: N o Known Drug Allergyno[Allergies Verified] Objective: * Vitals: H t: 71, Wt:163, BMI:22.73, BP:91/64, HR:90, Temp:97.0, Wt-k.94. * P ast Orders: Lab:Complete Blood Count Aut o Diff * Collection Date 09/18/2024 01/11/2024 06/17/2023 Collection Time 10:14 AM 07:36 AM 08:19 AM Order Date 09/18/2024 01/11/2024 06/17/2023 White Blood Count 6.9 (Ref Range: 4.8-10.8 X10*3/uL) 8.1 (Ref Range: 4.8-10.8 X10*3/uL) 6.3 (Ref Range: 4.8-10.8 X10*3/uL) Red Blood Count 4.37 L (Ref Range: 4.60-5.80 X10*6/uL) 4.31 L (Ref Range: 4.60-5.80 X10*6/uL) 4.31 L (Ref Range: 4.60-5.80 X10*6/uL) Hemoglobin 14.5 (Ref Range: 14.0-18.0 g/dl) 14.2 (Ref Range: 14.0-18.0 g/dl) 14.0 (Ref Range: 14.0-18.0 g/dl) Hematocrit 41.3 L (Ref Range: 42.0-52.0 %) 40.1 L (Ref Range: 42.0-52.0 %) 40.3 L (Ref Range: 42.0-52.0 %) Mean Corpuscular Volume 94.5 (Ref Range: 80.0-98.0 fL) 93.0 (Ref Range: 80.0-98.0 fL) 93.5 (Ref Range: 80.0-98.0 fL) Mean Corpuscular Hemoglobin 33.2 H (Ref Range: 27.0-33.0 pg) 32.9 (Ref Range: 27.0-33.0 pg) 32.5 (Ref Range: 27.0-33.0 pg) Mean Corpuscular HGB Conc 35.1 (Ref Range: 31.0-36.0 g/dl) 35.4 (Ref Range: 31.0-36.0 g/dl) 34.7 (Ref Range: 31.0-36.0 g/dl) Red Cell Distribution Width 13.0 (Ref Range: 11.0-16.0 %) 13.2 (Ref Range: 11.0-16.0 %) 13.5 (Ref Range: 11.0-16.0 %) Platelet Count 231 (Ref Range: 160-400 X10*3/uL) 215 (Ref Range: 160-400 X10*3/uL) 235 (Ref Range: 160-400 X10*3/uL) Mean Platelet Volume 9.8 (Ref Range: 9.4-12.4 fL) 9.6 (Ref Range: 9.4-12.4 fL) 9.7 (Ref Range: 9.4-12.4 fL) Neutrophils Percent Auto 55.0 (Ref Range: 45-73 %) 48.9 (Ref Range: 45-73 %) 49.7 (Ref Range: 45-73 %) Imm Gran Pct Auto 0.3 (Ref Range: 0.0-0.4 %) 0.4 (Ref Range: 0.0-0.4 %) 0.3 (Ref Range: 0.0-0.4 %) Lymphocytes Percent Auto 33.3 (Ref Range: 20-40 %) 36.5 (Ref Range: 20-40 %) 36.5 (Ref Range: 20-40 %) Monocytes Percent Auto 7.7 (Ref Range: 2-11 %) 9.7 (Ref Range: 2-11 %) 9.3 (Ref Range: 2-11 %) Eosinophils Percent Auto 3.3 (Ref Range: 0-4 %) 3.9 (Ref Range: 0-4 %) 3.6 (Ref Range: 0-4 %) Basophils Percent Auto 0.4 (Ref Range: 0-2 %) 0.6 (Ref Range: 0-2 %) 0.6 (Ref Range: 0-2 %) NRBC Pct Auto 0.0 (Ref Range: 0.0-0.2 /100WBC) 0.0 (Ref Range: 0.0-0.2 /100WBC) 0.0 (Ref Range: 0.0-0.2 /100WBC) Neutrophils Absolute Auto 3.8 (Ref Range: 2.0-8.3 x10*3/uL) 4.0 (Ref Range: 2.0-8.3 x10*3/uL) 3.1 (Ref Range: 2.0-8.3 x10*3/uL) Imm Gran Abs Auto 0.02 (Ref Range: 0.00-0.03 X10*3/uL) 0.03 (Ref Range: 0.00-0.03 X10*3/uL) 0.02 (Ref Range: 0.00-0.03 X10*3/uL) Lymphocytes Absolute Auto 2.3 (Ref Range: 1.2-4.9 X10*3/uL) 3.0 (Ref Range: 1.2-4.9 X10*3/uL) 2.3 (Ref Range: 1.2-4.9 X10*3/uL) Monocytes Absolute Auto 0.5 (Ref Range: 0.1-1.2 X10*3/uL) 0.8 (Ref Range: 0.1-1.2 X10*3/uL) 0.6 (Ref Range: 0.1-1.2 X10*3/uL) Eosinophils Absolute Auto 0.2 (Ref Range: 0.0-0.4 X10*3/uL) 0.3 (Ref Range: 0.0-0.4 X10*3/uL) 0.2 (Ref Range: 0.0-0.4 X10*3/uL) Basophils Absolute Auto 0.0 (Ref Range: 0.0-0.2 X10*3/uL) 0.1 (Ref Range: 0.0-0.2 X10*3/uL) 0.0 (Ref Range: 0.0-0.2 X10*3/uL) NRBC Abs Auto 0.000 (Ref Range: 0.0-0.012 X10*3/uL) 0.000 (Ref Range: 0.0-0.012 X10*3/uL) 0.000 (Ref Range: 0.0-0.012 X10*3/uL) * Lab:[facility] * Collection Date 09/18/2024 01/11/2024 06/17/2023 Collection Time 10:14 AM 07:36 AM 08:19 AM Order Date 09/18/2024 01/11/2024 06/17/2023 Sodium 132 L (Ref Range: 135-145 mmol/L) 129 L (Ref Range: 135-145 mmol/L) 132 L (Ref Range: 135-145 mmol/L) Bilirubin Total 0.8 (Ref Range: 0.0-1.0 mg/dL) 0.5 (Ref Range: 0.0-1.0 mg/dL) 0.7 (Ref Range: 0.0-1.0 mg/dL) Aspartate Amino Transferase 28 (Ref Range: 5-37 U/L) 22 (Ref Range: 5-37 U/L) 26 (Ref Range: 5-37 U/L) Alanine Aminotransferase 29 (Ref Range: 0-40 U/L) 17 (Ref Range: 0-40 U/L) 18 (Ref Range: 0-40 U/L) Total Protein 7.7 (Ref Range: 6.5-8.0 g/dL) 7.4 (Ref Range: 6.5-8.0 g/dL) 7.6 (Ref Range: 6.5-8.0 g/dL) Albumin Level 4.2 (Ref Range: 3.5-5.0 g/dL) 4.0 (Ref Range: 3.5-5.0 g/dL) 4.1 (Ref Range: 3.5-5.0 g/dL) Alkaline Phosphatase 80 (Ref Range: 39-117 U/L) 80 (Ref Range: 39-117 U/L) 84 (Ref Range: 39-117 U/L) Potassium 3.8 (Ref Range: 3.3-5.1 mmol/L) 3.3 (Ref Range: 3.3-5.1 mmol/L) 3.8 (Ref Range: 3.3-5.1 mmol/L) Chloride 97 (Ref Range: 96-108 mmol/L) 92 L (Ref Range: 96-108 mmol/L) 96 (Ref Range: 96-108 mmol/L) Carbon Dioxide 29 (Ref Range: 22-29 mmol/L) 28 (Ref Range: 22-29 mmol/L) 28 (Ref Range: 22-29 mmol/L) Anion Gap 10 L (Ref Range: 12-20) 12 (Ref Range: 12-20) 12 (Ref Range: 12-20) Blood Urea Nitrogen 15 (Ref Range: 9-16 mg/dL) 15 (Ref Range: 9-16 mg/dL) 17 H (Ref Range: 9-16 mg/dL) Creatinine 0.94 (Ref Range: 0.5-1.4 mg/dL) 0.92 (Ref Range: 0.5-1.4 mg/dL) 0.95 (Ref Range: 0.5-1.4 mg/dL) Estimated Glomerular Filt Rate > 60 > 60 > 60 Glucose Fasting 95 (Ref Range: 60-99 mg/dL) 93 (Ref Range: 60-99 mg/dL) 99 (Ref Range: 60-99 mg/dL) Calcium 9.1 (Ref Range: 8.4-10.2 mg/dL) 9.4 (Ref Range: 8.4-10.2 mg/dL) 9.4 (Ref Range: 8.4-10.2 mg/dL) * Lab:Lipid Panel * Collection Date 09/18/2024 01/11/2024 06/17/2023 Collection Time 10:14 AM 07:36 AM 08:19 AM Order Date 09/18/2024 01/11/2024 06/17/2023 Triglycerides 178 H (Ref Range: <150 mg/dL) 106 (Ref Range: <150 mg/dL) 101 (Ref Range: <150 mg/dL) Cholesterol 129 (Ref Range: <200 mg/dL) 132 (Ref Range: <200 mg/dL) 137 (Ref Range: <200 mg/dL) LDL Cholesterol Calculated 55 (Ref Range: <100 mg/dL) 63 (Ref Range: <100 mg/dL) 74 (Ref Range: <100 mg/dL) HDL Cholesterol 39 L (Ref Range: >40 mg/dL) 48 (Ref Range: >40 mg/dL) 43 (Ref Range: >40 mg/dL) * Examination: G eneral Examination: GENERAL APPEARANCE: p leasant, well nourished, well developed, in no acute distress, calm and relaxed, man. HEAD: a traumatic, normocephalic. EYES: e ryann, perrla, anicteric, conjugate. EARS: n ormal. NOSE: s eptum intact. ORAL CAVITY: n ormal, unremarkable. NECK/THYROID: n o jugular venous distention, no carotid bruit, thyroid normal, supple. LYMPH NODES: n o enlarged lymph nodes,spleen [...] are now controlled with medication. 2 . I mpacted cerumen, unspecified ear - H61.20 N otes :Both ears remain free of cerumen. 3 . E ssential hypertension - I10 N otes :His blood pressure is currently stable. No changes in his regimen were needed. 4 . B enign prostatic hyperplasia, unspecified whether lower urinary tract symptoms present - N40.0 N otes :He rises from sleep once or twice a night to urinate. We have discussed lifestyle modification as a way to reduce nocturnal urination. 5 . M ixed hyperlipidemia - E78.2 N otes :Comprehensive blood work with a fasting lipid profile has been ordered prior to his next visit. No change in his regimen was made today. 6 . D egenerative disc disease, lumbar - M51.36 N otes :His back pain is minimal and well controlled with naproxen. No change in his regimen was dated today. 7 . F ormer smoker - Z87.891 N otes :He is highly motivated not to smoke. We discussed a plan to prevent relapse in times of stress and illness. Plan: * Treatment: 2. E ssential hypertension L AB: PROFILE, FASTING (COMPREHENSIVE METABOLIC) L AB: PSA, TOTAL L AB: CBC WITH AUTO DIFF L AB: Lipid Panel 3. B enign prostatic hyperplasia, unspecified whether lower urinary tract symptoms present L AB: PROFILE, FASTING (COMPREHENSIVE METABOLIC) L AB: PSA, TOTAL L AB: CBC WITH AUTO DIFF L AB: Lipid Panel 4. M ixed hyperlipidemia L AB: PROFILE, FASTING (COMPREHENSIVE METABOLIC) L AB: PSA, TOTAL L AB: CBC WITH AUTO DIFF L AB: Lipid Panel 5. O thers Referral To:[facility] Reason:Consult and Treat Screen for Colon Cancer * Procedure Codes: * Preventive Medicine: Counseling: S moking/Tobacco Use Patient counseled on the dangers of tobacco use and urged to quit. 0 09/25/2024 * Follow Up: 4 Months, In four months after blood work (Reason: OV, To check patient's PSS and overall health status) * Images: * Sign off status: Completed true * Provider: Casandra Goodwin MD Date: 0 09/25/2024 Generated for Vincenzo rao/Baylee/Kristaitting on: 1 08/26/2024 08:57 AM EST History and Physical Notes * HPI (History of Present Illness) Category Sub-Category Detail Notes COVID-19 Screening Questions Have you had any new onset fever, chills, cough, congestion, sore throat, shortness of breath, muscle aches?: No Examination Category Sub-Category Detail Notes General Examination GENERAL APPEARANCE: pleasant , well nourished, well developed, in no acute distress, calm and relaxed, man HEAD: atraumatic, normocep halic EYES: eomi, perrla, anicte peter, conjugate EARS: normal NOSE: septum intact NECK/THYROID: no jugular venous di stention, no carotid bruit, thyroid normal, supple HEART: no clicks, gallops, murmurs, or rubs, [...] PSYCH: alert, oriented ORAL CAVITY: normal, unremarkable Consultation Request Notes Referral Date Referring Provider Referred Provider Not es 09/25/2024 Ryan Goodwin, Ryan Ware and Jason santo Screen for Colon Cancer
--- OUTSIDE RECORDS SUMMARY | 2024-11-05 05:59 | XMS_ITS ---
Author Organization Ryan Goodwin III, MD Address [address] [place] [address] [place] [address] Care Team Providers Care Regulatory Affairs Portfolio Leader Name Role Phone Dr. Ryan Goodwin III Primary Care Provider REASON FOR VISIT HCC Risk Codes Social History Sex Assigned At : Social History Observation Description Sex Assigned At Male Encounters Encounter Location Date Provider Diagnosis Ryan Goodwin III, MD [address] [place] [address] [place] [address] 11/05/2024 Ryan Goodwin Plan Of Treatment Next Appt Details Provider Name:Ryan Goodwin , 07/02/2025 11:00:00 AM, [address] [place] [address] [place], [address], Provider Name:Ryan Goodwin , 04/03/2026 10:00:00 AM, [address] [place] [address] [place], [address], Progress Notes * Ulysses LARKIN SDOB:1945 (78 yo M)Acc No.[id number]:11/05/2024 Patient: Ulysses PLAZA :1945 A ge:78 Y S ex:Male Address:[address], [place] [address] * true * Date: Generated for Printi ng/Faxing/eTransmitting on: 08/26/2024 08:58 AM EST
--- OUTSIDE RECORDS SUMMARY | 2025-01-23 10:00 | XMS_ITS ---
Author Organization Ryan Goodwin III, MD Address [address] [place] [address] Care Team Providers Care Floor Polisher Name Role Phone Dr. Ryan Goodwin III Primary Care Provider Allergies Allergen (clinical drug ingredient) Drug/Non Drug Allergy documented on EMR Reaction Allergy Type Onset Date Status No Known Drug Allergy Unknown Drug Allergy Active Reason For Referral Reason left arm lesion le ft ankle lesion Diagnosis 1 Skin lesion (L98.9) Referral Organization Ryan Goodwin III, MD Referring Provider First Name Ryan Referring Provider Last Name Christa Referring Provider Speciality Internal M edicine Referred Provider [facility] [place] ([place]) Referred Provider Specialty Dermatology General Notes Roslyn Alvarado CMA 01/29 08:56:55 AM >ref/ demo/progress note faxed asking appt to be in [place] office and a paper copy faxed also Referral Priority Routine Referral Appointment Date 04/01/2025 REASON FOR VISIT BPH, Cluster headaches, hypertension, Hyperlipidemia, Hearing loss right ear, Allergies Medications Medication SIG (Take, Route, Frequency, Duration) Notes Start Date End Date Status Djigkbjijo-ZJVI-Xtehgchd 50-325-40 MG TAKE 1 TABLET BY MOUTH DAILY Active Benzonatate 100 MG 1 capsule Orally Three times a day Active Irbesartan 300 MG 1 tablet Orally Once a day Active Simvastatin 40 MG 1 tablet every evening Orally Once a day Active hydroCHLOROthiazide 25 MG 1 tablet in th e morning Orally Once a day Active Acyclovir 200 MG 1 capsule Orally Fiv e times a day Active Social History Tobacco Use: [...] Non-User Ex-cigaret te smoker Vital Signs Temperature 97.7 degrees Fahrenheit 01/24/20 25 Blood pressure systolic 99 mm Hg 01/24/20 25 Blood pressure diastolic 69 mm Hg 025 Heart Rate 86 /min 01/23/2025 Height 71 in 01/23/2025 Weight 162 lbs 01/23/2025 BMI 22.59 kg/m2 01/23/2025 Encounters Encounter Location Date Provider Diagnosis Ryan Goodwin III, MD [address] [place] [address] [address] [place], [place] [phone] 01/23/2025 Ryan Goodwin Essential hypertensi on I10 ; Mixed hyperlipidemia E78.2 ; Vitamin D deficiency E55.9 ; Chronic cluster headache, not intractable G44.029 ; Benign prostatic hyperplasia, unspecified whether lower urinary tract symptoms present N40.0 ; Degenerative disc disease, lumbar M51.36 and Former smoker Z87.891 Assessments Encounter Date Diagnosis (ICD Code) Assessment Notes Treat ment Notes Treatment Clinical Notes 01/23/2025 Essential hypertension (ICD-10 - I10) His blood pressure is controlled at 99/69. No further changes in his regimen were made. 01/23/2025 Mixed hyperlipidemia (ICD-10 - E78.2) His total cholesterol is under good control. No change in his regimen was made. I recommended a low animal fat diet. 01/23/2025 Vitamin D deficiency (ICD-10 - E55.9) 1 to take 1000 units of vitamin D3 daily. 01/23/2025 Chronic cluster headache, not intractable (ICD-10 - G44.029) His headaches are mild and infrequent and are now controlled with medication. 01/23/2025 Benign prostatic hyperplasia, unspecified whether lower urinary tract symptoms present (ICD-10 - N40.0) He rises from sleep once or twice a night to urinate. We have discussed lifestyle modification as a way to reduce nocturnal urination. 01/23/2025 Degenerative disc disease, lumbar (ICD-10 - M51.36) His back pain is minimal and well controlled with naproxen. No change in his regimen was dated today. 01/23/2025 Former smoker (ICD-1 0 - Z87.891) He is highly motivated not to smoke. We discussed a plan to prevent relapse in times of stress and illness. Plan Of Treatment Medication Medication Name Sig Start Date Stop Date Notes Airmdatvzi-WRCC-Byeqccgf 50- 325-40 MG TAKE 1 TABLET BY MOUTH DAILY Benzonatate 100 MG 1 capsule Orally Thr ee times a day Irbesartan 300 MG 1 tablet Orally Once a day Simvastatin 40 MG 1 tablet every eveni ng Orally Once a day hydroCHLOROthiazide 25 MG 1 tablet in th e morning Orally Once a day Acyclovir 200 MG 1 capsule Orally Fiv e times a day Pending Test Test Name Order Date PROFILE, FASTING (COMPREHENSIVE METABOLI C) 01/23/2025 CBC w DIFF 01/23/2025 Lipid Panel 01/23/2025 Vitamin D 25-OH Total 01/23/2025 Referrals Referral Date Details 01/23/2025 01/23/2025, left arm lesion left ankle lesion, [facility] ([place]) [facility] Next Appt Details Follow Up: as scheduled, Rosa son: annual exam review labs Provider Name:Ryan Goodwin , 07/02/2025 11:00:00 AM, [address] [place] [address] [address], [place], [phone], Provider Name:Ryan Goodwin , 04/03/2026 10:00:00 AM, [address] [place] [address] [address], [place], [phone], Progress Notes * Adán LARKINy SDOB:1945 (79 yo M)Acc No.[id number]:01/23/2025 Progress Notes Patient: Ulysses LPAZA S Provider: Casandra Goodwin MD :1945 A ge:79 Y S ex:Male Date:01/23/2025 Address:[address] [place] [address], [address], [phone] Subjective: * Chief Complaints: * B PHCluster headachesHypertensionHyperlipidemiaHearing loss right earAllergies * HPI: C OVID-19 Screening: H e returns to the office for medical management. He says he is doing quite well. Comprehensive blood work was available but no change in his regimen was necessary. He is going to reduce his use of benzonatate for the chronic cough. He takes his Fioricet about 10 times a month to sleep. His blood pressure is stable. His back pain has resolved and he avoids heavy lifting. He denies any chest pain or shortness of breath recently. Questions H ave you had any new onset fever, chills, cough, congestion, sore throat, shortness of breath, muscle aches? N o * ROS: G eneral/Constitutional: pain F requent headaches. C hills d enies. F atigue a dmits. F ever d enies. E NT: Decreased hearing d enies. R espiratory: Cough d enies. C ardiovascular: Chest pain with exertion d enies. D yspnea on exertion?with prolonged activity. S hortness of breath w ith exertion. G astrointestinal: Constipation d enies. D ecreased appetite d enies.?Diarrhea d enies. H eartburn d enies. N ausea d enies. R ectal bleeding?denies. V omiting d enies. H ematology: bruising [...] History: r ight inguinal hernia repair, , [facility] 1999right rotator cuff tear repair 2000basal cell carcinoma resected right cheek 2002left rotator cuff tear repair 08/2003repeat left rotator cuff tear repair 12/2010right hip replacement 09/2007revision right hip replacement 10/2012left hip repair 09/2005carpal tunnel release 2006colonoscopy, [facility], Dr. Ryan Bledsoe, negative 02/2009tonsillectomy left [...] T obacco Use: T obacco Use/Smoking P atient is a f ormer smoker H ow long has it been since you last smoked??> 10 years A dditional Findings: Tobacco Non-User E x-cigarette smoker Prashant [place] was born in [place] and now lives in [place]. He is single with no children. 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 He works in [place], [place]. He rides a bicycle. * Medications: T akingIrbesartan 300 MG Tablet 1 tablet Orally Once a day Acyclovir 200 MG Capsule 1 capsule Orally Five times a day hydroCHLOROthiazide 25 MG Tablet 1 tablet in the morning Orally Once a day Simvastatin 40 MG Tablet 1 tablet every evening Orally Once a day Benzonatate 100 MG Capsule 1 capsule Orally Three times a day Mkqgixgbnz-ZQDH-Nyyoafci 50-325-40 MG Tablet TAKE 1 TABLET BY MOUTH DAILY Medication List reviewed and reconciled with the patientTaking Irbesartan 300 MG Tablet 1 tablet Orally Once a day Taking Acyclovir 200 MG Capsule 1 capsule Orally Five times a day Taking hydroCHLOROthiazide 25 MG Tablet 1 tablet in the morning Orally Once a day Taking Simvastatin 40 MG Tablet 1 tablet every evening Orally Once a day Taking Benzonatate 100 MG Capsule 1 capsule Orally Three times a day Taking Nwdokaaydv-JWDT-Oecpqfmi 50-325-40 MG Tablet TAKE 1 TABLET BY MOUTH DAILY Medication List reviewed and reconciled with the patient * Allergies: N o Known Drug Allergyno[Allergies Verified] Objective: * Vitals: H t: 71, Wt:162, BMI:22.59, BP:99/69, HR:86, Temp:97.7, Wt-k.48. * P ast Orders: Lab:Complete Blood Count Aut o Diff * Collection Date 01/09/2025 09/18/2024 01/11/2024 Collection Time 08:04 AM 10:14 AM 07:36 AM Order Date 01/09/2025 09/18/2024 01/11/2024 White Blood Count 6.3 (Ref Range: 4.8-10.8 X10*3/uL) 6.9 (Ref Range: 4.8-10.8 X10*3/uL) 8.1 (Ref Range: 4.8-10.8 X10*3/uL) Red Blood Count 4.55 L (Ref Range: 4.60-5.80 X10*6/uL) 4.37 L (Ref Range: 4.60-5.80 X10*6/uL) 4.31 L (Ref Range: 4.60-5.80 X10*6/uL) Hemoglobin 15.0 (Ref Range: 14.0-18.0 g/dl) 14.5 (Ref Range: 14.0-18.0 g/dl) 14.2 (Ref Range: 14.0-18.0 g/dl) Hematocrit 42.3 (Ref Range: 42.0-52.0 %) 41.3 L (Ref Range: 42.0-52.0 %) 40.1 L (Ref Range: 42.0-52.0 %) Mean Corpuscular Volume 93.0 (Ref Range: 80.0-98.0 fL) 94.5 (Ref Range: 80.0-98.0 fL) 93.0 (Ref Range: 80.0-98.0 fL) Mean Corpuscular Hemoglobin 33.0 (Ref Range: 27.0-33.0 pg) 33.2 H (Ref Range: 27.0-33.0 pg) 32.9 (Ref Range: 27.0-33.0 pg) Mean Corpuscular HGB Conc 35.5 (Ref Range: 31.0-36.0 g/dl) 35.1 (Ref Range: 31.0-36.0 g/dl) 35.4 (Ref Range: 31.0-36.0 g/dl) Red Cell Distribution Width 13.2 (Ref Range: 11.0-16.0 %) 13.0 (Ref Range: 11.0-16.0 %) 13.2 (Ref Range: 11.0-16.0 %) Platelet Count 271 (Ref Range: 160-400 X10*3/uL) 231 (Ref Range: 160-400 X10*3/uL) 215 (Ref Range: 160-400 X10*3/uL) Mean Platelet Volume 9.9 (Ref Range: 9.4-12.4 fL) 9.8 (Ref Range: 9.4-12.4 fL) 9.6 (Ref Range: 9.4-12.4 fL) Neutrophils Percent Auto 46.1 (Ref Range: 45-73 %) 55.0 (Ref Range: 45-73 %) 48.9 (Ref Range: 45-73 %) Imm Gran Pct Auto 0.3 (Ref Range: 0.0-0.4 %) 0.3 (Ref Range: 0.0-0.4 %) 0.4 (Ref Range: 0.0-0.4 %) Lymphocytes Percent Auto 40.8 H (Ref Range: 20-40 %) 33.3 (Ref Range: 20-40 %) 36.5 (Ref Range: 20-40 %) Monocytes Percent Auto 8.5 (Ref Range: 2-11 %) 7.7 (Ref Range: 2-11 %) 9.7 (Ref Range: 2-11 %) Eosinophils Percent Auto 3.5 (Ref Range: 0-4 %) 3.3 (Ref Range: 0-4 %) 3.9 (Ref Range: 0-4 %) Basophils Percent Auto 0.8 (Ref Range: 0-2 %) 0.4 (Ref Range: 0-2 %) 0.6 (Ref Range: 0-2 %) NRBC Pct Auto 0.0 (Ref Range: 0.0-0.2 /100WBC) 0.0 (Ref Range: 0.0-0.2 /100WBC) 0.0 (Ref Range: 0.0-0.2 /100WBC) Neutrophils Absolute Auto 2.9 (Ref Range: 2.0-8.3 x10*3/uL) 3.8 (Ref Range: 2.0-8.3 x10*3/uL) 4.0 (Ref Range: 2.0-8.3 x10*3/uL) Imm Gran Abs Auto 0.02 (Ref Range: 0.00-0.03 X10*3/uL) 0.02 (Ref Range: 0.00-0.03 X10*3/uL) 0.03 (Ref Range: 0.00-0.03 X10*3/uL) Lymphocytes Absolute Auto 2.6 (Ref Range: 1.2-4.9 X10*3/uL) 2.3 (Ref Range: 1.2-4.9 X10*3/uL) 3.0 (Ref Range: 1.2-4.9 X10*3/uL) Monocytes Absolute Auto 0.5 (Ref Range: 0.1-1.2 X10*3/uL) 0.5 (Ref Range: 0.1-1.2 X10*3/uL) 0.8 (Ref Range: 0.1-1.2 X10*3/uL) Eosinophils Absolute Auto 0.2 (Ref Range: 0.0-0.4 X10*3/uL) 0.2 (Ref Range: 0.0-0.4 X10*3/uL) 0.3 (Ref Range: 0.0-0.4 X10*3/uL) Basophils Absolute Auto 0.1 (Ref Range: 0.0-0.2 X10*3/uL) 0.0 (Ref Range: 0.0-0.2 X10*3/uL) 0.1 (Ref Range: 0.0-0.2 X10*3/uL) NRBC Abs Auto 0.000 (Ref Range: 0.0-0.012 X10*3/uL) 0.000 (Ref Range: 0.0-0.012 X10*3/uL) 0.000 (Ref Range: 0.0-0.012 X10*3/uL) * Lab:Matilda Painter. Phyllis l Fast * Collection Date 01/09/2025 09/18/2024 01/11/2024 Collection Time 08:04 AM 10:14 AM 07:36 AM Order Date 01/09/2025 09/18/2024 01/11/2024 Sodium 130 L (Ref Range: 135-145 mmol/L) 132 L (Ref Range: 135-145 mmol/L) 129 L (Ref Range: 135-145 mmol/L) Bilirubin Total 0.7 (Ref Range: 0.0-1.0 mg/dL) 0.8 (Ref Range: 0.0-1.0 mg/dL) 0.5 (Ref Range: 0.0-1.0 mg/dL) Aspartate Amino Transferase 31 (Ref Range: 5-37 U/L) 28 (Ref Range: 5-37 U/L) 22 (Ref Range: 5-37 U/L) Alanine Aminotransferase 23 (Ref Range: 0-40 U/L) 29 (Ref Range: 0-40 U/L) 17 (Ref Range: 0-40 U/L) Total Protein 7.7 (Ref Range: 6.5-8.0 g/dL) 7.7 (Ref Range: 6.5-8.0 g/dL) 7.4 (Ref Range: 6.5-8.0 g/dL) Albumin Level 4.5 (Ref Range: 3.5-5.0 g/dL) 4.2 (Ref Range: 3.5-5.0 g/dL) 4.0 (Ref Range: 3.5-5.0 g/dL) Alkaline Phosphatase 75 (Ref Range: 39-117 U/L) 80 (Ref Range: 39-117 U/L) 80 (Ref Range: 39-117 U/L) Potassium 3.5 (Ref Range: 3.3-5.1 mmol/L) 3.8 (Ref Range: 3.3-5.1 mmol/L) 3.3 (Ref Range: 3.3-5.1 mmol/L) Chloride 92 L (Ref Range: 96-108 mmol/L) 97 (Ref Range: 96-108 mmol/L) 92 L (Ref Range: 96-108 mmol/L) Carbon Dioxide 28 (Ref Range: 22-29 mmol/L) 29 (Ref Range: 22-29 mmol/L) 28 (Ref Range: 22-29 mmol/L) Anion Gap 14 (Ref Range: 12-20) 10 L (Ref Range: 12-20) 12 (Ref Range: 12-20) Blood Urea Nitrogen 14 (Ref Range: 9-16 mg/dL) 15 (Ref Range: 9-16 mg/dL) 15 (Ref Range: 9-16 mg/dL) Creatinine 0.86 (Ref Range: 0.5-1.4 mg/dL) 0.94 (Ref Range: 0.5-1.4 mg/dL) 0.92 (Ref Range: 0.5-1.4 mg/dL) Estimated Glomerular Filt Rate > 60 > 60 > 60 Glucose Fasting 109 H (Ref Range: 60-99 mg/dL) 95 (Ref Range: 60-99 mg/dL) 93 (Ref Range: 60-99 mg/dL) Calcium 9.3 (Ref Range: 8.4-10.2 mg/dL) 9.1 (Ref Range: 8.4-10.2 mg/dL) 9.4 (Ref Range: 8.4-10.2 mg/dL) * Lab:Lipid Panel * Collection Date 01/09/2025 09/18/2024 01/11/2024 Collection Time 08:04 AM 10:14 AM 07:36 AM Order Date 01/09/2025 09/18/2024 01/11/2024 Triglycerides 218 H (Ref Range: <150 mg/dL) 178 H (Ref Range: <150 mg/dL) 106 (Ref Range: <150 mg/dL) Cholesterol 148 (Ref Range: <200 mg/dL) 129 (Ref Range: <200 mg/dL) 132 (Ref Range: <200 mg/dL) LDL Cholesterol Calculated 61 (Ref Range: <100 mg/dL) 55 (Ref Range: <100 mg/dL) 63 (Ref Range: <100 mg/dL) HDL Cholesterol 44 (Ref Range: >40 mg/dL) 39 L (Ref Range: >40 mg/dL) 48 (Ref Range: >40 mg/dL) * Lab:Prostate Specific Antige n * Collection Date 01/09/2025 03/07/2023 03/17/2022 Collection Time 08:04 AM 07:46 AM 07:55 AM Order Date 01/09/2025 03/07/2023 03/17/2022 Prostate Specific Antigen 1.31 (Ref Range: <0.05-4.0 ng/mL) 1.65 (Ref Range: <0.05-4.0 ng/mL) 1.56 (Ref Range: <0.05-4.0 ng/mL) * Examination: G eneral Examination: GENERAL APPEARANCE: p leasant, well nourished, well developed, in no acute distress, calm and relaxed, , elderly man. HEAD: a traumatic, normocephalic. EYES: e ryann, perrla, anicteric, conjugate. EARS: n ormal, Hearing loss right ear. NOSE: s eptum intact. ORAL CAVITY: n [...] sounds normal, no ascites, no organomegaly, no mass, Old right inguinal herniorrhaphy scar. RECTAL EXAM: n ot examined. MUSCULOSKELETAL: e xtremities unremarkable, no clubbing, cyanosis or edema. PERIPHERAL PULSES: n ormal. NEUROLOGIC: a lert and oriented, cranial nerves 2-12 grossly intact, deep tendon reflexes 2+ symmetrical, motor strength normal upper and lower extremities, sensory exam intact. PSYCH: a lert, oriented. Assessment: * Assessment: 1. E ssential hypertension - I10 (Primary) N otes :His blood pressure is controlled at 99/69. No further changes in his regimen were made. 2 . M ixed hyperlipidemia - E78.2 N otes :His total cholesterol is under good control. No change in his regimen was made. I recommended a low animal fat diet. 3 . V itamin D deficiency - E55.9 N otes :1 to take 1000 units of vitamin D3 daily. 4 . C hronic cluster headache, not intractable - G44.029 N otes :His headaches are mild and infrequent and are now controlled with medication. 5 . B enign prostatic hyperplasia, unspecified whether lower urinary tract symptoms present - N40.0 N otes :He rises from sleep once or twice a night to urinate. We have discussed lifestyle modification as a way to reduce nocturnal urination. 6 . D egenerative disc disease, lumbar - M51.36 N otes :His back pain is minimal and well controlled with naproxen. No change in his regimen was dated today. 7 . F ormer smoker - Z87.891 N otes :He is highly motivated not to smoke. We discussed a plan to prevent relapse in times of stress and illness. Plan: * Treatment: 2. M ixed hyperlipidemia L AB: PROFILE, FASTING (COMPREHENSIVE METABOLIC) L AB: CBC w DIFF L AB: Lipid Panel L AB: Vitamin D 25-OH Total 3. V itamin D deficiency L AB: PROFILE, FASTING (COMPREHENSIVE METABOLIC) L AB: CBC w DIFF L AB: Lipid Panel L AB: Vitamin D 25-OH Total 4. O thers Continue Vfkfjaofkd-SAQX-Aygjfcut Tablet, 50-325-40 MG, TAKE 1 TABLET BY MOUTH DAILY; C ontinue Benzonatate Capsule, 100 MG, 1 capsule, Orally, Three times a day; C ontinue Irbesartan Tablet, 300 MG, 1 tablet, Orally, Once a day; C ontinue Acyclovir Capsule, 200 MG, 1 capsule, Orally, Five times a day; C ontinue hydroCHLOROthiazide Tablet, 25 MG, 1 tablet in the morning, Orally, Once a day; C ontinue Simvastatin Tablet, 40 MG, 1 tablet every evening, Orally, Once a day. Referral To:& [facility] Reason:left arm lesion left ankle lesion * Procedure Codes: * Preventive Medicine: Counseling: S moking/Tobacco Use Patient counseled on the dangers of tobacco use and urged to quit. 0 01/23/2025 * Follow Up: a s scheduled (Reason: annual exam review labs) * Images: * Sign off status: Completed true * Provider: Casandra Goodwin MD Date: 0 01/23/2025 Generated for Vincenzo rao/Baylee/Rochellesmitting on: 1 08/26/2024 08:58 AM EST History and Physical Notes * HPI (History of Present Illness) Category Sub-Category Detail Notes COVID-19 Screening Questions Have you had any new onset fever, chills, cough, congestion, sore throat, shortness of breath, muscle aches?: No Examination Category Sub-Category Detail Notes General Examination GENERAL APPEARANCE: pleasant , well nourished, well developed, in no acute distress, calm and relaxed, , elderly man HEAD: atraumatic, normocep halic EYES: eomi, perrla, anicte peter, conjugate EARS: normal, Hearing loss right ear NOSE: septum intact NECK/THYROID: no jugular venous di stention, no carotid bruit, thyroid normal HEART: no clicks, gallops, murmurs, or rubs, regular rhythm, S1, S2 normal, no s3, or vascular bruits LUNGS: clear to auscultatio n ABDOMEN: bowel sounds normal, no ascites, no organomegaly, no mass, Old right inguinal herniorrhaphy scar NEUROLOGIC: alert and oriented, cranial nerves 2-12 [...] Referral Date Referring Provider Referred Provider Not velvet 01/23/2025 Ryan Goodwin [facility] ([place]) left arm lesion left ankle lesion
--- OUTSIDE RECORDS SUMMARY | 2025-01-31 05:09 | XMS_ITS ---
Author Organization Ryan Goodwin III, MD Address [address] [place] [address] [address] [facility] [place] [address] Care Team Providers Care Cook Fast Food Name Role Phone Dr. Ryan Goodwin III Primary Care Provider REASON FOR VISIT FYI Social History Sex Assigned At : Social History Observation Description Sex Assigned At Male Encounters Encounter Location Date Provider Diagnosis Ryan Goodwin III, MD [address] [place] [address] [place] [address] 01/31/2025 Ryan Goodwin Plan Of Treatment Next Appt Details Provider Name:Ryan Goodwin , 07/02/2025 11:00:00 AM, [address] [place] [address] [address] [place], [phone], Provider Name:Ryan Goodwin , 04/03/2026 10:00:00 AM, [address] [place] [address] [address] [facility] [place], [address], Progress Notes * Ulysses LARKIN SDOB:1945 (79 yo M)Acc No.[id number]:01/31/2025 Patient: Ulysses PLAZA :1945 A ge:79 Y S ex:Male [facility] [place] [address] [place] [address] * true * Date: Generated for Printi ng/Faxing/eTransmitting on: 08/26/2024 08:58 AM EST
--- OUTSIDE RECORDS SUMMARY | 2025-04-01 05:00 | XMS_ITS ---
Author Organization Ryan Goodwin III, MD Address [address] [place] [address] Care Team Providers Care Fruit Vendor Name Role Phone Dr. Ryan Goodwin III Primary Care Provider Allergies Allergen (clinical drug ingredient) Drug/Non Drug Allergy documented on EMR Reaction Allergy Type Onset Date Status No Known Drug Allergy Unknown Drug Allergy Active No Known Food Allergy Unknown Drug Allergy Active REASON FOR VISIT Annual Exam Medications Medication SIG (Take, Route, Frequency, Duration) Notes Start Date End Date Status Irbesartan 300 MG 1 tablet Orally Once a day Active hydroCHLOROthiazide 25 MG 1 tablet every morning Orally Once a day Active Simvastatin 40 MG 1 tablet every evening Orally Once a day Active Acyclovir 200 MG 1 capsule Orally Fiv e times a day Active Eefslhkmng-LDZH-Tssbbbzr 50-325-40 MG TAKE 1 TABLET BY MOUTH DAILY Active Social History Tobacco Use: Social History Observation Description Date Details (start date - stop date) Former Smoker NA - NA Sex Assigned At : Social History Observation Description Sex Assigned At Male Tobacco Control (Standard) Question Answer Notes Tobacco use: Former smoker How long has it been since you last smoked? Grea ter than 10 years Additional Findings: Tobacco non-user Ex-cigaret te smoker AUDIT-C (Standard) Question Answer Notes Did you have a drink containing alcohol in the p ast year? No Points 0 Interpretation Negative Vital Signs Temperature 97.5 degrees Fahrenheit 04/01/20 25 Blood pressure systolic 120 mm Hg 04/01/20 25 Blood pressure diastolic 80 mm Hg 025 Heart Rate 93 /min 04/01/2025 Height 71 in 04/01/2025 Weight 161 lbs 04/01/2025 BMI 22.45 kg/m2 04/01/2025 Encounters Encounter Location Date Provider Diagnosis Ryan Goodwin III, MD [address] [place] [address] [place] [address] 04/01/2025 Ryan Goodwin Mixed hyperlipidemia E78.2 ; Vitamin D deficiency E55.9 ; Essential hypertension I10 ; Benign prostatic hyperplasia, unspecified whether lower urinary tract symptoms present N40.0 ; Chronic cluster headache, not intractable G44.029 ; Degenerative disc disease, lumbar M51.36 ; 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 His triglycerides are elevated. We discussed the dietary sources of triglycerides today.. We made a plan to avoid animal fats. 04/01/2025 Vitamin D deficiency (ICD-10 - E55.9) His vitamin D level is normal. No change in his regimen was necessary today. 04/01/2025 Essential hypertension (ICD-10 - I10) His blood pressure is currently stable. No change in his regimen was needed. 04/01/2025 Benign prostatic hyperplasia, unspecified whether lower urinary tract symptoms present (ICD-10 - N40.0) He rises from sleep once or twice a night to urinate. We have discussed lifestyle modification as a way to reduce nocturnal urination. 04/01/2025 Chronic cluster headache, not intractable (ICD-10 - G44.029) His headaches are mild and infrequent and are now controlled with medication. 04/01/2025 Degenerative disc disease, lumbar (ICD-10 - M51.36) His back pain is minimal and well controlled with naproxen. No change in his regimen was dated today. 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 No changes were made in his regimen. 04/01/2025 Seasonal allergic rhinitis, unspecified trigger (ICD-10 - J30.2) He is having no symptoms at the current time. He will be in touch if symptoms develop. He found pollen season this spring to be severe. 04/01/2025 Erectile dysfunction , unspecified erectile dysfunction type (ICD-10 - N52.9) He will continue on current therapy without change. 04/01/2025 Former smoker (ICD-1 0 - Z87.891) He is highly motivated not to smoke. We discussed a plan to prevent relapse in times of stress and illness. 04/01/2025 Left inguinal hernia (ICD-10 - K40.90) His hernia remains asymptomatic. We discussed when he should seek emergency care in the event of continued pain or an irreducible lump that hurt. Plan Of Treatment Medication Medication Name Sig Start Date Stop Date Notes Irbesartan 300 MG 1 tablet Orally Once a day hydroCHLOROthiazide 25 MG 1 tablet every morning Orally Once a day Simvastatin 40 MG 1 tablet every eveni ng Orally Once a day Acyclovir 200 MG 1 capsule Orally Fiv e times a day Srvbsggnfe-PUSE-Fhdajewm 50- 325-40 MG TAKE 1 TABLET BY MOUTH DAILY Pending Test Test Name Order Date PROFILE, FASTING (COMPREHENSIVE METABOLI C) 04/01/2025 CBC w DIFF 04/01/2025 Lipid Panel 04/01/2025 Next Appt Details Follow Up: 3 Months, Reason: OV Provider Name:Ryan Goodwin , 07/02/2025 11:00:00 AM, [address] [place] [address] [address], [place], [id number], Provider Name:Ryan Goodwin , 04/03/2026 10:00:00 AM, [address] [place] [address] [address], [place], [id number], Progress Notes * Ulysses LARKIN SDOB:1945 (79 yo M)Acc No.[id number]:04/01/2025 Progress Notes Patient: Christiano MCFARLAND Ulysses Christiano Provider: Casandra Goodwin MD :1945 A ge:79 Y S ex:Male Date:04/01/2025 Address:[address] [place] [address] [address], [address], [place], [id number] Subjective: * Chief Complaints: * A nnual Exam * HPI: D epression Screening: He returns to the office at the age of 79, for an annual examination. He saw his potato peeler, Dr. Bledsoe, told him he had aged out of colonoscopies. He says he feels healthy and well. His is well. He is having fewer headaches. His cough has improved and he is sleeping well. He walks a half a mile a day and uses fluoride toothpaste regularly. He has no chest pain or shortness of breath. He denies any bleeding. He takes no new medications. He has not been taking any hurting care centers or emergency room sent has had no hospitalizations or new allergies. PHQ-9 L ittle interest or pleasure in doing things?Not at all F eeling down, depressed, or hopeless N ot at all T rouble falling or staying asleep, or sleeping too much N ot at all F eeling tired or having little energy N ot at all P oor appetite or overeating N ot at all F eeling bad about yourself or that you are a failure, or have let yourself or your family down N ot at all T rouble concentrating on things, such as reading the newspaper or watching television N ot at all M oving or speaking so slowly that other people could have noticed; or the opposite, being so fidgety or restless that you have been moving around a lot more than usual N ot at all T houghts that you would be better off or of hurting yourself in some way N ot at all T otal Score 0 C OVID-19 Screening: Questions H ave you had any new onset fever, chills, cough, congestion, sore throat, shortness of breath, muscle aches? N o F all Risk Screening: Fall History H ave you had any falls with injury in the past year? N o H ave you had two or more falls in the past year? N o F all Risk Assessment: N o falls in the past year S RILEY Questions: SDOH Questions I n the past year have you been worried about losing your housing? N o I n the past year have you or any family members you live with been unable to get any of the following when it was really needed? Check all that apply: N one * ROS: G eneral/Constitutional: pain o nly normal aches and pains. C hills d enies.?Fatigue a dmits. F ever d enies. E NT: Decreased hearing i n the right ear. R espiratory: Cough d enies. C ardiovascular: Chest pain with exertion d enies. D yspnea on exertion?denies. S hortness of breath d enies. G astrointestinal: Constipation d enies. D ecreased [...] History: r ight inguinal hernia repair, , [facility] 1999right rotator cuff tear repair 2000basal cell carcinoma resected right cheek 2002left rotator cuff tear repair 08/2003repeat left rotator cuff tear repair 12/2010right hip replacement 09/2007revision right hip replacement 10/2012left hip repair 09/2005carpal tunnel release 2005colonoscopy, [facility], Dr. Ryan Bledsoe, negative 02/2009tonsillectomy left inguinal herniorraphy 2019colonoscopy, 5 year plan ilateral cataract surgeries ty removal 11/2021No history * Hospitalization/Major Diagno stic Procedure: N o history * Family History: F ather: 89 yrs, dementia,uti, 3 times, no other information available. M other: 37 yrs, diagnosed with Cancer. S iblings: alive. P starla Grand Mother: alive, diagnosed with DM. 1 [...] or mental illness. Patient's father lived to , mother at 37. * Social History: T obacco Use: T obacco Control (Standard) T obacco use: F ormer smoker H ow long has it been since you last smoked??Greater than 10 years A dditional Findings: Tobacco non-user E x-cigarette smoker D rugs/Alcohol: D rugs H ave you used drugs other than those for medical reasons in the past 12 months? N o D rug/Alcohol: A PABLO-C (Standard) D id you have a drink containing alcohol in the past year? N o P oints 0 I nterpretation N egative H manuelito was born in [place] and now lives in [place]. He is single with no children. 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 He works in [place], [place]. He rides a bicycle. * Medications: T akingIrbesartan 300 MG Tablet 1 tablet Orally Once a day Acyclovir 200 MG Capsule 1 capsule Orally Five times a day Simvastatin 40 MG Tablet 1 tablet every evening Orally Once a day Njwwfqnuvt-UMHS-Rmnaxwpm 50-325-40 MG Tablet TAKE 1 TABLET BY MOUTH DAILY hydroCHLOROthiazide 25 MG Tablet 1 tablet every morning Orally Once a day Taking Irbesartan 300 MG Tablet 1 tablet Orally Once a day Taking Acyclovir 200 MG Capsule 1 capsule Orally Five times a day Taking Simvastatin 40 MG Tablet 1 tablet every evening Orally Once a day Taking Wtgfnikxvb-HKXH-Exskoodd 50-325-40 MG Tablet TAKE 1 TABLET BY MOUTH DAILY Taking hydroCHLOROthiazide 25 MG Tablet 1 tablet every morning Orally Once a day DiscontinuedBenzonatate 100 MG Capsule 1 capsule Orally Three times a day Medication List reviewed and reconciled with the patientDiscontinued Benzonatate 100 MG Capsule 1 capsule Orally Three times a day Medication List reviewed and reconciled with the patient * Allergies: N o Known Drug AllergyNo Known Food Allergyno[Allergies Verified] Objective: * Vitals: H t: 71, Wt:161, BMI:22.45, BP:120/80, HR:93, Temp:97.5, Wt-k.03. * P ast Orders: Lab:Complete Blood Count Aut o Diff * Collection Date 03/27/2025 01/09/2025 09/18/2024 Collection Time 09:01 AM 08:04 AM 10:14 AM Order Date 03/27/2025 01/09/2025 09/18/2024 White Blood Count 7.5 (Ref Range: 4.8-10.8 X10*3/uL) 6.3 (Ref Range: 4.8-10.8 X10*3/uL) 6.9 (Ref Range: 4.8-10.8 X10*3/uL) Red Blood Count 4.52 L (Ref Range: 4.60-5.80 X10*6/uL) 4.55 L (Ref Range: 4.60-5.80 X10*6/uL) 4.37 L (Ref Range: 4.60-5.80 X10*6/uL) Hemoglobin 14.9 (Ref Range: 14.0-18.0 g/dl) 15.0 (Ref Range: 14.0-18.0 g/dl) 14.5 (Ref Range: 14.0-18.0 g/dl) Hematocrit 41.5 L (Ref Range: 42.0-52.0 %) 42.3 (Ref Range: 42.0-52.0 %) 41.3 L (Ref Range: 42.0-52.0 %) Mean Corpuscular Volume 91.8 (Ref Range: 80.0-98.0 fL) 93.0 (Ref Range: 80.0-98.0 fL) 94.5 (Ref Range: 80.0-98.0 fL) Mean Corpuscular Hemoglobin 33.0 (Ref Range: 27.0-33.0 pg) 33.0 (Ref Range: 27.0-33.0 pg) 33.2 H (Ref Range: 27.0-33.0 pg) Mean Corpuscular HGB Conc 35.9 (Ref Range: 31.0-36.0 g/dl) 35.5 (Ref Range: 31.0-36.0 g/dl) 35.1 (Ref Range: 31.0-36.0 g/dl) Red Cell Distribution Width 12.9 (Ref Range: 11.0-16.0 %) 13.2 (Ref Range: 11.0-16.0 %) 13.0 (Ref Range: 11.0-16.0 %) Platelet Count 249 (Ref Range: 160-400 X10*3/uL) 271 (Ref Range: 160-400 X10*3/uL) 231 (Ref Range: 160-400 X10*3/uL) Mean Platelet Volume 9.4 (Ref Range: 9.4-12.4 fL) 9.9 (Ref Range: 9.4-12.4 fL) 9.8 (Ref Range: 9.4-12.4 fL) Neutrophils Percent Auto 52.1 (Ref Range: 45-73 %) 46.1 (Ref Range: 45-73 %) 55.0 (Ref Range: 45-73 %) Imm Gran Pct Auto 0.4 (Ref Range: 0.0-0.4 %) 0.3 (Ref Range: 0.0-0.4 %) 0.3 (Ref Range: 0.0-0.4 %) Lymphocytes Percent Auto 35.1 (Ref Range: 20-40 %) 40.8 H (Ref Range: 20-40 %) 33.3 (Ref Range: 20-40 %) Monocytes Percent Auto 8.2 (Ref Range: 2-11 %) 8.5 (Ref Range: 2-11 %) 7.7 (Ref Range: 2-11 %) Eosinophils Percent Auto 3.7 (Ref Range: 0-4 %) 3.5 (Ref Range: 0-4 %) 3.3 (Ref Range: 0-4 %) Basophils Percent Auto 0.5 (Ref Range: 0-2 %) 0.8 (Ref Range: 0-2 %) 0.4 (Ref Range: 0-2 %) NRBC Pct Auto 0.0 (Ref Range: 0.0-0.2 /100WBC) 0.0 (Ref Range: 0.0-0.2 /100WBC) 0.0 (Ref Range: 0.0-0.2 /100WBC) Neutrophils Absolute Auto 3.9 (Ref Range: 2.0-8.3 x10*3/uL) 2.9 (Ref Range: 2.0-8.3 x10*3/uL) 3.8 (Ref Range: 2.0-8.3 x10*3/uL) Imm Gran Abs Auto 0.03 (Ref Range: 0.00-0.03 X10*3/uL) 0.02 (Ref Range: 0.00-0.03 X10*3/uL) 0.02 (Ref Range: 0.00-0.03 X10*3/uL) Lymphocytes Absolute Auto 2.6 (Ref Range: 1.2-4.9 X10*3/uL) 2.6 (Ref Range: 1.2-4.9 X10*3/uL) 2.3 (Ref Range: 1.2-4.9 X10*3/uL) Monocytes Absolute Auto 0.6 (Ref Range: 0.1-1.2 X10*3/uL) 0.5 (Ref Range: 0.1-1.2 X10*3/uL) 0.5 (Ref Range: 0.1-1.2 X10*3/uL) Eosinophils Absolute Auto 0.3 (Ref Range: 0.0-0.4 X10*3/uL) 0.2 (Ref Range: 0.0-0.4 X10*3/uL) 0.2 (Ref Range: 0.0-0.4 X10*3/uL) Basophils Absolute Auto 0.0 (Ref Range: 0.0-0.2 X10*3/uL) 0.1 (Ref Range: 0.0-0.2 X10*3/uL) 0.0 (Ref Range: 0.0-0.2 X10*3/uL) NRBC Abs Auto 0.000 (Ref Range: 0.0-0.012 X10*3/uL) 0.000 (Ref Range: 0.0-0.012 X10*3/uL) 0.000 (Ref Range: 0.0-0.012 X10*3/uL) * Lab:Vitamin D 25-OH Total * Collection Date 03/27/2025 03/23/2021 Collection Time 09:01 AM 08:20 AM Order Date 03/27/2025 03/23/2021 Vitamin D 25-OH Total 55.4 (Ref Range: >30 ng/mL) 36.3 (Ref Range: >30 ng/mL) * Lab:Lipid Panel * Collection Date 03/27/2025 01/09/2025 09/18/2024 Collection Time 09:01 AM 08:04 AM 10:14 AM Order Date 03/27/2025 01/09/2025 09/18/2024 Triglycerides 235 H (Ref Range: <150 mg/dL) 218 H (Ref Range: <150 mg/dL) 178 H (Ref Range: <150 mg/dL) Cholesterol 143 (Ref Range: <200 mg/dL) 148 (Ref Range: <200 mg/dL) 129 (Ref Range: <200 mg/dL) LDL Cholesterol Calculated 56 (Ref Range: <100 mg/dL) 61 (Ref Range: <100 mg/dL) 55 (Ref Range: <100 mg/dL) HDL Cholesterol 40 L (Ref Range: >40 mg/dL) 44 (Ref Range: >40 mg/dL) 39 L (Ref Range: >40 mg/dL) * Lab:Comprehensive [place]. Pane l Fast * Collection Date 03/27/2025 01/09/2025 09/18/2024 Collection Time 09:01 AM 08:04 AM 10:14 AM Order Date 03/27/2025 01/09/2025 09/18/2024 Sodium 134 L (Ref Range: 135-145 mmol/L) 130 L (Ref Range: 135-145 mmol/L) 132 L (Ref Range: 135-145 mmol/L) Bilirubin Total 0.7 (Ref Range: 0.0-1.0 mg/dL) 0.7 (Ref Range: 0.0-1.0 mg/dL) 0.8 (Ref Range: 0.0-1.0 mg/dL) Aspartate Amino Transferase 33 (Ref Range: 5-37 U/L) 31 (Ref Range: 5-37 U/L) 28 (Ref Range: 5-37 U/L) Alanine Aminotransferase 33 (Ref Range: 0-40 U/L) 23 (Ref Range: 0-40 U/L) 29 (Ref Range: 0-40 U/L) Total Protein 7.5 (Ref Range: 6.5-8.0 g/dL) 7.7 (Ref Range: 6.5-8.0 g/dL) 7.7 (Ref Range: 6.5-8.0 g/dL) Albumin Level 4.5 (Ref Range: 3.5-5.0 g/dL) 4.5 (Ref Range: 3.5-5.0 g/dL) 4.2 (Ref Range: 3.5-5.0 g/dL) Alkaline Phosphatase 83 (Ref Range: 39-117 U/L) 75 (Ref Range: 39-117 U/L) 80 (Ref Range: 39-117 U/L) Potassium 3.7 (Ref Range: 3.3-5.1 mmol/L) 3.5 (Ref Range: 3.3-5.1 mmol/L) 3.8 (Ref Range: 3.3-5.1 mmol/L) Chloride 95 L (Ref Range: 96-108 mmol/L) 92 L (Ref Range: 96-108 mmol/L) 97 (Ref Range: 96-108 mmol/L) Carbon Dioxide 29 (Ref Range: 22-29 mmol/L) 28 (Ref Range: 22-29 mmol/L) 29 (Ref Range: 22-29 mmol/L) Anion Gap 14 (Ref Range: 12-20) 14 (Ref Range: 12-20) 10 L (Ref Range: 12-20) Blood Urea Nitrogen 16 (Ref Range: 9-16 mg/dL) 14 (Ref Range: 9-16 mg/dL) 15 (Ref Range: 9-16 mg/dL) Creatinine 0.91 (Ref Range: 0.5-1.4 mg/dL) 0.86 (Ref Range: 0.5-1.4 mg/dL) 0.94 (Ref Range: 0.5-1.4 mg/dL) Estimated Glomerular Filt Rate > 60 > 60 > 60 Glucose Fasting 103 H (Ref Range: 60-99 mg/dL) 109 H (Ref Range: 60-99 mg/dL) 95 (Ref Range: 60-99 mg/dL) Calcium 9.3 (Ref Range: 8.4-10.2 mg/dL) 9.3 (Ref Range: 8.4-10.2 mg/dL) 9.1 (Ref Range: 8.4-10.2 mg/dL) * Lab:Prostate Specific Antige n * Collection Date 01/09/2025 03/07/2023 03/17/2022 Collection Time 08:04 AM 07:46 AM 07:55 AM Order Date 01/09/2025 03/07/2023 03/17/2022 Prostate Specific Antigen 1.31 (Ref Range: <0.05-4.0 ng/mL) 1.65 (Ref Range: <0.05-4.0 ng/mL) 1.56 (Ref Range: <0.05-4.0 ng/mL) * Examination: G eneral Examination: GENERAL APPEARANCE: p leasant, well nourished, well developed, in no acute distress, calm and relaxed: man. HEAD: a traumatic, normocephalic. EYES: e ryann, perrla, anicteric, conjugate. EARS: H earing loss right ear. NOSE: s eptum intact. [...] normal, no ascites, no organomegaly, no mass, Bilateral herniorrhaphy scars. RECTAL EXAM: n ot examined. MUSCULOSKELETAL: e xtremities unremarkable, no clubbing, cyanosis or edema,, Healed surgical scars on shoulders. PERIPHERAL PULSES: n ormal. NEUROLOGIC: a lert and oriented, cranial nerves 2-12 grossly intact, deep tendon reflexes 2+ symmetrical, motor strength normal upper and lower extremities, sensory exam intact. PSYCH: a lert, oriented: cooperative with exam: thought process logical, goal directed: speech clear: mood/affect full range. Assessment: * Assessment: 1. M ixed hyperlipidemia - E78.2 (Primary) N otes :His cholesterol values are stable and within target range. His triglycerides are elevated.? We discussed the dietary sources of triglycerides today.. We made a plan to avoid animal fats. 2 . V itamin D deficiency - E55.9 N otes :His vitamin D level is normal. No change in his regimen was necessary today. 3 . E ssential hypertension - I10 N otes :His blood pressure is currently stable. No change in his regimen was needed. 4 . B enign prostatic hyperplasia, unspecified whether lower urinary tract symptoms present - N40.0 N otes :He rises from sleep once or twice a night to urinate. We have discussed lifestyle modification as a way to reduce nocturnal urination. 5 . C hronic cluster headache, not intractable - G44.029 N otes :His headaches are mild and infrequent and are now controlled with medication. 6 . D egenerative disc disease, lumbar - M51.36 N otes :His back pain is minimal and well controlled with naproxen. No change in his regimen was dated today. 7 . S udden idiopathic hearing loss of right ear with unrestricted hearing of left ear - H91.21 N otes :He has experienced no change in his hearing in either since his last visit. No changes were made in his regimen. 8 . S easonal allergic rhinitis, unspecified trigger - J30.2 N otes :He is having no symptoms at the current time. He will be in touch if symptoms develop. He found pollen season this spring to be severe. 9 . E rectile dysfunction, unspecified erectile dysfunction type - N52.9 ? N otes :He will continue on current therapy without change. 1 0. F ormer smoker - Z87.891 N otes :He is highly motivated not to smoke. We discussed a plan to prevent relapse in times of stress and illness. 1 1. L eft inguinal hernia - K40.90 N otes :His hernia remains asymptomatic. We discussed when he should seek emergency care in the event of continued pain or an irreducible lump that hurt. Plan: * Treatment: 2. V itamin D deficiency L AB: PROFILE, FASTING (COMPREHENSIVE METABOLIC) L AB: CBC w DIFF L AB: Lipid Panel 3. E ssential hypertension L AB: PROFILE, FASTING (COMPREHENSIVE METABOLIC) L AB: CBC w DIFF L AB: Lipid Panel 4. O thers Continue hydroCHLOROthiazide Tablet, 25 MG, 1 tablet every morning, Orally, Once a day; C ontinue Lhxfqmwhqp-HUOD-Wfbcaynl Tablet, 50-325-40 MG, TAKE 1 TABLET BY MOUTH DAILY; C ontinue Irbesartan Tablet, 300 MG, 1 tablet, Orally, Once a day; C ontinue Acyclovir Capsule, 200 MG, 1 capsule, Orally, Five times a day; C ontinue Simvastatin Tablet, 40 MG, 1 tablet every evening, Orally, Once a day. * Procedure Codes: * Preventive Medicine: Counseling: S moking/Tobacco Use Patient counseled on the dangers of tobacco use and urged to quit. 0 04/01/2025 * Follow Up: 3 Months (Reason: OV) * Images: * Sign off status: Completed true * Provider: Casandra Goodwin MD Date: 0 04/01/2025 Generated for Vincenzo rao/Baylee/Constantinoransmitting on: 1 08/26/2024 08:57 AM EST History and Physical Notes * HPI (History of Present Illness) Category Sub-Category Detail Notes Depression Screening PHQ-9 Little inte rest or pleasure in doing things: Not at all Feeling down, depressed, or hopeless: No t at all Trouble falling or staying asleep, or sl eeping too much: Not at all Feeling tired or having little energy: N ot at all Poor appetite or overeating: Not at all Feeling bad about yourself o r that you are a failure, or have let yourself or your family down: Not at all Trouble concentrating on thi ngs, such as reading the newspaper or watching television: Not at all Moving or speaking so slowly that other people could have noticed; or the opposite, being so fidgety or restless that you have been moving around a lot more than usual: Not at all Thoughts that you would be b teresa off or of hurting yourself in some way: Not at all Total Score: 0 Fall Risk Screening Fall History Have you had any falls with injury in the past year?: No Have you had two or more falls in the year?: No Fall Risk Assessment:: No falls in the year COVID-19 Screening Questions Have you had any new onset fever, chills, cough, congestion, sore throat, shortness of breath, muscle aches?: No SDOH Questions SDOH Questions In the past year have you been worried about losing your housing?: No In the past year have you or any family members you live with been unable to get any of the following when it was really needed? Check all that apply:: None Examination Category Sub-Category Detail Notes General Examination GENERAL APPEARANCE: pleasant , well nourished, well developed, in no acute distress, calm and relaxed: man HEAD: atraumatic, normocep halic EYES: eomi, perrla, anicte peter, conjugate EARS: Hearing loss right e ar NOSE: septum intact NECK/THYROID: no jugular venous di stention, no carotid bruit, thyroid normal HEART: no clicks, gallops, murmurs, or rubs, regular rhythm, S1, S2 normal, no s3, or vascular bruits LUNGS: clear to auscultatio n ABDOMEN: bowel sounds normal, no ascites, no organomegaly, no mass, Bilateral herniorrhaphy scars NEUROLOGIC: alert and oriented, cranial nerves 2-12 grossly intact, deep tendon reflexes 2+ symmetrical, motor strength normal upper and lower extremities, sensory exam intact SKIN: no suspicious lesion s, anicteric PERIPHERAL PULSES: normal BREASTS: no masses palpable b ilaterally MUSCULOSKELETAL: extremities unremark able, no clubbing, cyanosis or edema,, Healed surgical scars on shoulders LYMPH NODES: no enlarged lymph no siobhan,spleen normal RECTAL EXAM: not examined PSYCH: alert, oriented: specialty foods cook perative with exam: thought process logical, goal directed: speech clear: mood/affect full range ORAL CAVITY: normal, unremarkable
--- OUTSIDE RECORDS SUMMARY | 2025-06-26 08:57 | XMS_ITS | Patient Health Record ---
Author Organization [facility] Address [address] [place] [address] Care Team Providers Care Web Page Designer Name Role Phone Ryan Goodwin MD Primary Care Provider UnavailRyan Trinidad Unavailable [phone] Allergies No Known Allergies Reason For Referral No Information Medications Medication SIG (Take, Route, Frequency, Duration) Notes Start Date End Date Status Pfrkcbifan-YHNH-Upivwbpi 50-325-40 MG 1 tablet as needed Orally [...] Status Risk Notes Problem Colon cancer screening (092173168) Colon cancer screening (Z12.11) Active confirmed Problem Preprocedural examination (715251334156329) Preprocedural examination (Z01.818) Active confirmed Problem History of adenomatous polyp of colon (650600722) History of adenomatous polyp of colon (Z86.0101) Active confirmed Vital Signs Temperature 97.9 degrees Fahrenheit 01/30/2025 Blood pressure diastolic 01 mm Hg 01/30/2025 Height 70 in 01/30/2025 Blood pressure systolic 001 mm Hg 01/30/2025 Weight 162 lbs 01/30/2025 BMI 23.24 kg/m2 01/30/2025 Encounters Encounter Location Date Provider Diagnosis [facility] [address] [place] [address] 01/30/2025 Ryan Bledsoe History of adenomato us [...] Insured Coverage Start Date Coverage End Date [facility] [address] [place] [phone] [id number] ULYSSES MENDEZ Self - patient is the insured 4 Medical (General) History Medical History History ICD Code HTN High cholesterol Denies MA,DM,CVA,Lung disease,renal dise ase Negative screening colonosco py 2008 with me; Colonoscopy 01/2020 with 1 tubular adenoma removed in [place] Surgical History Surgery Date(Month/Year) carpal tunnel releases hip replacements bilateral rotator cuff tear repairs
--- OUTSIDE RECORDS SUMMARY | 2025-06-26 08:58 | XMS_ITS | Patient Health Record ---
Author Organization Ryan Goodwin III, MD Address [address] [place] [address] Care Team Providers Care Picking Crew Supervisor Name Role Phone Dr. Ryan Goodwin III Primary Care Provider [phone] Allergies Allergen (clinical drug ingredient) Drug/Non Drug Allergy documented on EMR Reaction Allergy Type Onset Date Status No Known Drug Allergy Unknown Drug Allergy Active No Known Food Allergy Unknown Drug Allergy Active Results Component Value Reference Range Notes Complete Blood Count Auto Di ff Reviewed date:09/23/2024 08:57:23 AM Interpretation: Performing Lab:[facility], [address] [place] [phone] Notes/Report: White Blood Count 6.9 4.8-10.8 X10*3/uL Red Blood Count 4.37 4.60-5.80 X10*6/uL Hemoglobin 14.5 14.0-18.0 g/dl Hematocrit 41.3 42.0-52.0 % Mean Corpuscular Volume 94.5 80.0-98.0 fL Mean Corpuscular Hemoglobin 33.2 27.0-33.0 pg Mean Corpuscular HGB Conc 35.1 31.0-36.0 g/dl Red Cell Distribution Width 13.0 11.0-16.0 % Platelet Count 231 160-400 X10*3/uL Mean Platelet Volume 9.8 9.4-12.4 fL Neutrophils Percent Auto 55.0 45-73 % Imm Gran Pct Auto 0.3 0.0-0.4 % Lymphocytes Percent Auto 33.3 20-40 % Monocytes Percent Auto 7.7 2-11 % Eosinophils Percent Auto 3.3 0-4 % Basophils Percent Auto 0.4 0-2 % NRBC Pct Auto 0.0 0.0-0.2 /100WBC Neutrophils Absolute Auto 3.8 2.0-8.3 x10*3/u L Imm Gran Abs Auto 0.02 0.00-0.03 X10*3/uL Lymphocytes Absolute Auto 2.3 1.2-4.9 X10*3/u L Monocytes Absolute Auto 0.5 0.1-1.2 X10*3/uL Eosinophils Absolute Auto 0.2 0.0-0.4 X10*3/u L Basophils Absolute Auto 0.0 0.0-0.2 X10*3/uL NRBC Abs Auto 0.000 0.0-0.012 X10*3/uL Comprehensive [place]. Panel Fa st Reviewed date:09/23/2024 08:57:23 AM Interpretation: Performing Lab:[address] [address] Notes/Report: Sodium 132 135-145 mmol/L Potassium 3.8 3.3-5.1 mmol/L Chloride 97 96-108 mmol/L Carbon Dioxide 29 22-29 mmol/L Anion Gap 10 12-20 Blood Urea Nitrogen 15 9-16 mg/dL Creatinine 0.94 0.5-1.4 mg/dL Estimated Glomerular Filt Rate > 60 Chronic Kidney Disease: Estimated GFR < 60 mL/min/1.73m2 Severe Kidney Disease: Estimated GFR < 15 mL/min/1.73m2 Glucose Fasting 95 60-99 mg/dL Calcium 9.1 8.4-10.2 mg/dL Bilirubin Total 0.8 0.0-1.0 mg/dL Aspartate Amino Transferase 28 5-37 U/L Alanine Aminotransferase 29 0-40 U/L Total Protein 7.7 6.5-8.0 g/dL Albumin Level 4.2 3.5-5.0 g/dL Alkaline Phosphatase 80 39-117 U/L Lipid Panel Reviewed date:09/23/2024 08:57:23 AM Interpretation: Performing Lab:[facility], [address] [place] [phone] Notes/Report: Triglycerides 178 <150 mg/dL Desirable Triglyceride: less than 150 mg/dL Borderline High Triglyceride 150-199 mg/dL High Triglyceride: 200-499 mg/dL Very High Triglyceride: greater than or equal to 5OO mg/dL Cholesterol 129 <200 mg/dL Desirable Cholesterol: less than 200 mg/dL Borderline High Cholesterol: 200-239 mg/dL High Cholesterol: greater than 239 mg/dL LDL Cholesterol Calculated 55 <100 mg/dL Desirable LDL: less than 100 mg/dL Near Optimal/Above Optimal LDL: 110-129 mg/dL Borderline High LDL: 130-159 mg/dL High LDL: 160-189 mg/dL Very High LDL: greater than or equal to 190 mg/dL HDL Cholesterol 39 >40 mg/dL Desirable HDL: greater than 40 mg/dL Note: This HDL assay may give artificially low results in patients with liver disease. Complete Blood Count Auto Di ff Reviewed date:01/15/2025 01:11:00 PM Interpretation: Performing Lab:[facility], [address] [place] [phone] Notes/Report: White Blood Count 6.3 4.8-10.8 X10*3/uL Red Blood Count 4.55 4.60-5.80 X10*6/uL Hemoglobin 15.0 14.0-18.0 g/dl Hematocrit 42.3 42.0-52.0 % Mean Corpuscular Volume 93.0 80.0-98.0 fL Mean Corpuscular Hemoglobin 33.0 27.0-33.0 pg Mean Corpuscular HGB Conc 35.5 31.0-36.0 g/dl Red Cell Distribution Width 13.2 11.0-16.0 % Platelet Count 271 160-400 X10*3/uL Mean Platelet Volume 9.9 9.4-12.4 fL Neutrophils Percent Auto 46.1 45-73 % Imm Gran Pct Auto 0.3 0.0-0.4 % Lymphocytes Percent Auto 40.8 20-40 % Monocytes Percent Auto 8.5 2-11 % Eosinophils Percent Auto 3.5 0-4 % Basophils Percent Auto 0.8 0-2 % NRBC Pct Auto 0.0 0.0-0.2 /100WBC Neutrophils Absolute Auto 2.9 2.0-8.3 x10*3/u L Imm Gran Abs Auto 0.02 0.00-0.03 X10*3/uL Lymphocytes Absolute Auto 2.6 1.2-4.9 X10*3/u L Monocytes Absolute Auto 0.5 0.1-1.2 X10*3/uL Eosinophils Absolute Auto 0.2 0.0-0.4 X10*3/u L Basophils Absolute Auto 0.1 0.0-0.2 X10*3/uL NRBC Abs Auto 0.000 0.0-0.012 X10*3/uL Comprehensive [place]. Panel Fa st Reviewed date:01/15/2025 01:11:00 PM Interpretation: Performing Lab:[facility], [address] [place] [phone] Notes/Report: Sodium 130 135-145 mmol/L Potassium 3.5 3.3-5.1 mmol/L Chloride 92 96-108 mmol/L Carbon Dioxide 28 22-29 mmol/L Anion Gap 14 12-20 Blood Urea Nitrogen 14 9-16 mg/dL Creatinine 0.86 0.5-1.4 mg/dL Estimated Glomerular Filt Rate > 60 Chronic Kidney Disease: Estimated GFR < 60 mL/min/1.73m2 Severe Kidney Disease: Estimated GFR < 15 mL/min/1.73m2 Glucose Fasting 109 60-99 mg/dL A fasting glucose from 100-125 mg/dl is considered impaired (pre-diabetes). Calcium 9.3 8.4-10.2 mg/dL Bilirubin Total 0.7 0.0-1.0 mg/dL Aspartate Amino Transferase 31 5-37 U/L Alanine Aminotransferase 23 0-40 U/L Total Protein 7.7 6.5-8.0 g/dL Albumin Level 4.5 3.5-5.0 g/dL Alkaline Phosphatase 75 39-117 U/L Lipid Panel Reviewed date:01/15/2025 01:11:00 PM Interpretation: Performing Lab:[facility], [address] [place] [phone] Notes/Report: Triglycerides 218 <150 mg/dL Desirable Triglyceride: less than 150 mg/dL Borderline High Triglyceride 150-199 mg/dL High Triglyceride: 200-499 mg/dL Very High Triglyceride: greater than or equal to 5OO mg/dL Cholesterol 148 <200 mg/dL Desirable Cholesterol: less than 200 mg/dL Borderline High Cholesterol: 200-239 mg/dL High Cholesterol: greater than 239 mg/dL LDL Cholesterol Calculated 61 <100 mg/dL Desirable LDL: less than 100 mg/dL Near Optimal/Above Optimal LDL: 110-129 mg/dL Borderline High LDL: 130-159 mg/dL High LDL: 160-189 mg/dL Very High LDL: greater than or equal to 190 mg/dL HDL Cholesterol 44 >40 mg/dL Desirable HDL: greater than 40 mg/dL Note: This HDL assay may give artificially low results in patients with liver disease. Prostate Specific Antigen Reviewed date:01/15/2025 01:11:00 PM Interpretation: Performing Lab:[facility], [address] [place] [phone] Notes/Report: Prostate Specific Antigen 1.31 <0.05-4.0 ng/mL PSA methodology: Mckeon Alinity i Chemiluminescent Microparticle Immunoassay (CMIA) Complete Blood Count Auto Di ff Reviewed date:03/31/2025 08:02:40 PM Interpretation: Performing Lab:[facility], [address] [place] [phone] Notes/Report: White Blood Count 7.5 4.8-10.8 X10*3/uL Red Blood Count 4.52 4.60-5.80 X10*6/uL Hemoglobin 14.9 14.0-18.0 g/dl Hematocrit 41.5 42.0-52.0 % Mean Corpuscular Volume 91.8 80.0-98.0 fL Mean Corpuscular Hemoglobin 33.0 27.0-33.0 pg Mean Corpuscular HGB Conc 35.9 31.0-36.0 g/dl Red Cell Distribution Width 12.9 11.0-16.0 % Platelet Count 249 160-400 X10*3/uL Mean Platelet Volume 9.4 9.4-12.4 fL Neutrophils Percent Auto 52.1 45-73 % Imm Gran Pct Auto 0.4 0.0-0.4 % Lymphocytes Percent Auto 35.1 20-40 % Monocytes Percent Auto 8.2 2-11 % Eosinophils Percent Auto 3.7 0-4 % Basophils Percent Auto 0.5 0-2 % NRBC Pct Auto 0.0 0.0-0.2 /100WBC Neutrophils Absolute Auto 3.9 2.0-8.3 x10*3/u L Imm Gran Abs Auto 0.03 0.00-0.03 X10*3/uL Lymphocytes Absolute Auto 2.6 1.2-4.9 X10*3/u L Monocytes Absolute Auto 0.6 0.1-1.2 X10*3/uL Eosinophils Absolute Auto 0.3 0.0-0.4 X10*3/u L Basophils Absolute Auto 0.0 0.0-0.2 X10*3/uL NRBC Abs Auto 0.000 0.0-0.012 X10*3/uL Comprehensive [place]. Panel Fa st Reviewed date:03/31/2025 08:02:40 PM Interpretation: Performing Lab:[facility], [address] [place] [phone] Notes/Report: Sodium 134 135-145 mmol/L Potassium 3.7 3.3-5.1 mmol/L Chloride 95 96-108 mmol/L Carbon Dioxide 29 22-29 mmol/L Anion Gap 14 12-20 Blood Urea Nitrogen 16 9-16 mg/dL Creatinine 0.91 0.5-1.4 mg/dL Estimated Glomerular Filt Rate > 60 Chronic Kidney Disease: Estimated GFR < 60 mL/min/1.73m2 Severe Kidney Disease: Estimated GFR < 15 mL/min/1.73m2 Glucose Fasting 103 60-99 mg/dL A fasting glucose from 100-125 mg/dl is considered impaired (pre-diabetes). Calcium 9.3 8.4-10.2 mg/dL Bilirubin Total 0.7 0.0-1.0 mg/dL Aspartate Amino Transferase 33 5-37 U/L Alanine Aminotransferase 33 0-40 U/L Total Protein 7.5 6.5-8.0 g/dL Albumin Level 4.5 3.5-5.0 g/dL Alkaline Phosphatase 83 39-117 U/L Lipid Panel Reviewed date:03/31/2025 08:02:41 PM Interpretation: Performing Lab:[facility], [address] [place] [phone] Notes/Report: Triglycerides 235 <150 mg/dL Desirable Triglyceride: less than 150 mg/dL Borderline High Triglyceride 150-199 mg/dL High Triglyceride: 200-499 mg/dL Very High Triglyceride: greater than or equal to 5OO mg/dL Cholesterol 143 <200 mg/dL Desirable Cholesterol: less than 200 mg/dL Borderline High Cholesterol: 200-239 mg/dL High Cholesterol: greater than 239 mg/dL LDL Cholesterol Calculated 56 <100 mg/dL Desirable LDL: less than 100 mg/dL Near Optimal/Above Optimal LDL: 110-129 mg/dL Borderline High LDL: 130-159 mg/dL High LDL: 160-189 mg/dL Very High LDL: greater than or equal to 190 mg/dL HDL Cholesterol 40 >40 mg/dL Desirable HDL: greater than 40 mg/dL Note: This HDL assay may give artificially low results in patients with liver disease. Vitamin D 25-OH Total Reviewed date:03/31/2025 08:02:41 PM Interpretation: Performing Lab:[facility], [address] [place] [address] Notes/Report: Vitamin D 25-OH Total 55.4 >30 ng/mL Health Based Reference Values* < 20 ng/mL Deficient 20-30 ng/mL Insufficient > 30 ng/mL Sufficient *Huseyin DURÁN. N Engl J Med. 2007;357:266-280 There is no well-established upper level of normal vitamin D levels. Some laboratories use 50 ng/mL as an upper limit of normal. However, toxicity is patient-dependent and may occur at any level. Careful correlation with the patient's presentation is necessary and, if there is concern for vitamin D toxicity, treatment should be considered irrespective of the serum level. Care must be taken in interpreting Vitamin D results from different laboratories and methodologies. Published data demonstrated that results from patients undergoing hemodialysis may show a negative bias when tested with various automated 25-OH vitamin D assays when compared to LC-MS/MS. When testing samples from patients whose predominant form of Vitamin D is Vitamin D2, such as patients receiving Vitamin D2 supplementation, results that are subtherapeutic should be confirmed with another method such as LC-MS/MS. Reason For Referral Reason Consult and Treat [...] Referral Priority Routine Referral Appointment Date 01/30/2025 Reason left arm lesion le ft ankle lesion Diagnosis 1 Skin lesion (L98.9) Referral Organization Ryan Goodwin III, MD Referring Provider First Name Ryan Referring Provider Last Name Christa Referring Provider Speciality Internal M edicine Referred Provider [facility] ([place]) Referred Provider Specialty Dermatology General Notes Roslyn Alvarado CMA 01/29 08:56:55 AM >ref/ demo/progress note faxed asking appt to be in [place] office and a paper copy faxed also Referral Priority Routine Referral Appointment Date 04/01/2025 Medications Medication SIG (Take, Route, Frequency, Duration) Notes Start Date End Date Status [id number] 50-325-40 MG TAKE 1 TABLET BY MOUTH DAILY Active Irbesartan 300 MG TAKE 1 TABLET BY MOUTH EVERY DAY for 90 Active hydroCHLOROthiazide 25 MG 1 tablet every morning Orally Once a day Active Simvastatin 40 MG 1 tablet every evening Orally Once a day Active Acyclovir 200 MG 1 capsule Orally Fiv e times a day Active Immunizations Vaccine Route Administration Date Status Comme nts PCV13 Unknown 05/24/2017 Administered COVID PFIZER Unknown 05/27/2021 Administered Influenza no Preserv 3 and > Unknown 06/28/2016 Adminis tered Zostavax Unknown 07/16/2014 Administered COVID Pfizer Bivalent Unknown 06/22/2022 Administered Influenza High Dose Quadrivalent Unknown 05/13/2021 Adm inistered Influenza High Dose Quadrivalent Unknown 05/09/2023 Adm inistered Influenza High Dose Quadrivalent Unknown 04/14/2022 Adm inistered COMIRNATY Pfizer-BioNTech Unknown 05/24/2023 Administer ed PPV 23 Unknown 07/21/2018 Administered Fluzone High-Dose (HD-IIV3) Unknown 04/21/2017 Administ ered Comirnaty Pfizer COVID-19 12+ Unknown 05/08/2024 Admini stered Fluzone High-Dose (HD-IIV3) Unknown 05/08/2024 Administ natalia Fluzone High-Dose (HD-IIV3) Unknown 06/15/2018 Administ natalia Arvinneelanaresh Pfizer COVID-19 12+ Unknown 05/24/2023 Admini minor Social History Tobacco Use: Social History Observation [...] Problem Status W/U Status Risk Notes Problem 5213710 Former smoker (Z87.891) Active confirmed He is highly motivated not to smoke. We discussed a plan to prevent relapse in times of stress and illness. Problem 42185666 Anxiety (F41.9) Active confirmed He was continued on the current dose of sertraline which she says is beneficial. Problem 600344772 Mixed hyperlipidemia (E78.2) Active confirmed His cholesterol values are stable and within target range. His triglycerides are elevated. We discussed the dietary sources of triglycerides today.. We made a plan to avoid animal fats. Problem 524528755 Chronic cluster headache, not intractable (G44.029) Active confirmed His headaches are mild and infrequent and are now controlled with medication. Problem 277459773 Erectile dysfunction, unspecified erectile dysfunction type (N52.9) Active confirmed He will continue on current therapy without change. Problem 93724247 Essential hypertension (I10) Active confirmed His blood pressure is currently stable. No change in his regimen was needed. Problem 00458376 Pulmonary fibrosis (J84.10) Active confirmed The x-ray done in September of this year showed chronic fibrotic interstitial disease. The pulmonary functionn tests are consistent with mild interstitial fibrosis. His symptoms have resolved. He will be referred to pulmonary if they return. Problem 10313562 Vitamin D deficiency (E55.9) Active confirmed His vitamin D level is normal. No change in his regimen was necessary today. Problem 514038894 Left inguinal hernia (K40.90) Active confirmed His hernia remains asymptomatic. We discussed when he should seek emergency care in the event of continued pain or an irreducible lump that hurt. Problem Benign prostatic hypertrophy without outflow obstruction (856377207) Benign prostatic hyperplasia, unspecified whether lower urinary tract symptoms present (N40.0) Active confirmed He rises from sleep once or twice a night to urinate. We have discussed lifestyle modification as a way to reduce nocturnal urination. Problem 71020087 Degenerative disc disease, lumbar (M51.36) Active confirmed His back sade n is minimal and well controlled with naproxen. No change in his regimen was dated today. Problem 798170060 Seasonal allergic rhinitis, unspecified trigger (J30.2) Active confirmed He is having no symptoms at the current time. He will be in touch if symptoms develop. He found pollen season this spring to be severe. 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 No changes were made in his regimen. Vital Signs Heart Rate 93 /min 04/01/2025 Temperature 97.5 degrees Fahrenheit 04/01/2025 Blood pressure diastolic 80 mm Hg 04/01/2025 Height 71 in 04/01/2025 Blood pressure systolic 120 mm Hg 04/01/2025 Weight 161 lbs 04/01/2025 BMI 22.45 kg/m2 04/01/2025 Encounters Encounter Location Date Provider Diagnosis Ryan Goodwin III, MD [address] [place] [address] [place] [address] 08/20/2024 Ryan Goodwin Impacted cerumen, unspecified ear H61.20 ; Benign prostatic hyperplasia, unspecified whether lower urinary tract symptoms present N40.0 ; Chronic cluster headache, not intractable G44.029 and Essential hypertension I10 Ryna Goodwin III, MD [address] [place] [address] [place] [address] 09/25/2024 Ryan Goodwin Impacted cerumen, unspecified ear H61.20 ; Chronic cluster headache, not intractable G44.029 ; Essential hypertension I10 ; Benign prostatic hyperplasia, unspecified whether lower urinary tract symptoms present N40.0 ; Mixed hyperlipidemia E78.2 ; Degenerative disc disease, lumbar M51.36 and Former smoker Z87.891 Ryan Goodwin III, MD [address] [place] [address] [place] [address] 01/23/2025 Ryan Goodwin Essential hypertensi on I10 ; Mixed hyperlipidemia E78.2 ; Vitamin D deficiency E55.9 ; Chronic cluster headache, not intractable G44.029 ; Benign prostatic hyperplasia, unspecified whether lower urinary tract symptoms present N40.0 ; Degenerative disc disease, lumbar M51.36 and Former smoker Z87.891 Ryan Goodwin III, MD [address] [place] [address] [place] [address] 04/01/2025 Ryan Goodwin Mixed hyperlipidemia E78.2 ; [...] smoker Z87.891 and Left inguinal hernia K40.90 Ryan Goodwin III, MD [address] [place] [address] [place] [phone] 11/05/2024 Ryan Goodwin III, MD [address] [place] [address] [place] [address] 01/31/2025 Ryan Goodwin Assessments Encounter Date Diagnosis (ICD Code) Assessment Notes Treat ment Notes Treatment Clinical Notes 08/20/2024 Impacted cerumen, [...] a way to reduce nocturnal urination. 09/25/2024 Chronic cluster headache, not intractable (ICD-10 - G44.029) His headaches are mild and infrequent and are now controlled with medication. 09/25/2024 Impacted cerumen, unspecified ear (ICD-10 - H61.20) Both ears remain free of cerumen. 01/23/2025 Mixed hyperlipidemia (ICD-10 - E78.2) His total cholesterol is under good control. No change in his regimen was made. I recommended a low animal fat diet. 01/23/2025 Essential hypertension (ICD-10 - I10) His blood pressure is controlled at 99/69. No further changes in his regimen were made. 04/01/2025 Mixed hyperlipidemia (ICD-10 - E78.2) His cholesterol values are stable and within target range. His triglycerides are elevated. We discussed the dietary sources of triglycerides today.. We made a plan to avoid animal fats. 04/01/2025 Vitamin D deficiency (ICD-10 - E55.9) His vitamin D level is normal. No change in his regimen was necessary today. 08/20/2024 Chronic cluster headache, not intractable (ICD-10 - G44.029) His headaches are mild and infrequent and are now controlled with medication. 09/25/2024 Essential hypertension (ICD-10 - I10) His blood pressure is currently stable. No changes in his regimen were needed. 01/23/2025 Vitamin D deficiency (ICD-10 - E55.9) 1 to take 1000 units of vitamin D3 daily. 04/01/2025 Essential hypertension (ICD-10 - I10) His blood pressure is currently stable. No change in his regimen was needed. 08/20/2024 Essential hypertension (ICD-10 - I10) His blood pressure is in the normal range at 114/78 and no change in his regimen was needed today. 09/25/2024 Benign prostatic hyperplasia, unspecified whether lower urinary tract symptoms present (ICD-10 - N40.0) He rises from sleep once or twice a night to urinate. We have discussed lifestyle modification as a way to reduce nocturnal urination. 01/23/2025 Chronic cluster headache, not intractable (ICD-10 - G44.029) His headaches are mild and infrequent and are now controlled with medication. 04/01/2025 Benign prostatic hyperplasia, unspecified whether lower [...] change in his regimen was made today. 01/23/2025 Benign prostatic hyperplasia, unspecified whether lower urinary tract symptoms present (ICD-10 - N40.0) He rises from sleep once or twice a night to urinate. We have discussed lifestyle modification as a way to reduce nocturnal urination. 04/01/2025 Chronic cluster headache, not intractable (ICD-10 - G44.029) His headaches are mild and infrequent and are now controlled with medication. 09/25/2024 Degenerative disc disease, lumbar (ICD-10 - M51.36) His back pain is minimal and well controlled with naproxen. No change in his regimen was dated today. 01/23/2025 Degenerative disc disease, lumbar (ICD-10 - M51.36) His back pain is minimal and well controlled with naproxen. No change in his regimen was dated today. 04/01/2025 Degenerative disc disease, lumbar (ICD-10 - M51.36) His back pain is minimal and well controlled with naproxen. No change in his regimen was dated today. 09/25/2024 Former smoker (ICD-1 0 - Z87.891) He is highly motivated not to smoke. We discussed a plan to prevent relapse in times of stress and illness. 01/23/2025 Former smoker (ICD-1 0 - Z87.891) He is highly motivated not to smoke. We discussed a plan to prevent relapse in times of stress and illness. 04/01/2025 Sudden idiopathic hearing loss of right [...] irreducible lump that hurt. Plan Of Treatment Pending Test Test Name Order Date PROFILE, FASTING (COMPREHENSIVE METABOLI C) 05/28/2024 PROFILE, FASTING (COMPREHENSIVE METABOLI C) 04/01/2025 PROFILE, FASTING (COMPREHENSIVE METABOLI C) 01/23/2025 PROFILE, FASTING (COMPREHENSIVE METABOLI C) 09/25/2024 PSA, TOTAL 09/25/2024 CBC w DIFF 04/01/2025 CBC w DIFF 01/23/2025 PFT with DLCO and Blood Gases 04/03/2024 CBC WITH AUTO DIFF 09/25/2024 CBC WITH AUTO DIFF 05/28/2024 Lipid Panel 09/25/2024 Lipid Panel 05/28/2024 Lipid Panel 04/01/2025 Lipid Panel 01/23/2025 Vitamin D 25-OH Total 01/23/2025 Next Appt Details Provider Name:Ryan Goodwin , 07/02/2025 11:00:00 AM, [address] [place] [address] [address], [place], [address], Provider Name:Ryan Goodwin , 04/03/2026 10:00:00 AM, [address] [place] [address] [address], [place], [address], Insurance Providers Payer Name Payer Address Payer Phone Subscriber Number Group Number Insured Name Patient Relationship to Insured Coverage Start Date Coverage End Date [facility] [address] [place] [phone] [id number] Ulysses Larkin Self - patient is the insured MEDICARE NGS [address] [place] [phone] [id number] Ulysses Larkin Self - patient is the insured Medical (General) History Medical History History ICD Code Lumbar disc disease M51.9 Headaches essential hypertension mixed hyperlipidemia allergic rhinitis erectile dysfunction chronic headaches former smoker osteoarthritis shoulders and hips left inguinal hernia history of iritis left eye recurrent cold sores bilateral rotator cuff tears hearing loss, right ear 2020 postoperative pneumonia colonic polyps Interstitial pulmonary fibrosis Surgical History Surgery Date(Month/Year) No history Sty removal 11/2021 bilateral cataract surgeries 2020 colonoscopy, 5 year plan 2020 left inguinal herniorraphy 2019 tonsillectomy colonoscopy, [facility], Dr. Ryan Bledsoe, negative 02/2009 carpal tunnel release 2005 left hip repair 09/2005 revision right hip replacement 10/2012 right hip replacement 09/2007 repeat left rotator cuff tear repair 2010 left rotator cuff tear repair 08/2003 basal cell carcinoma resected right jr k 2002 right rotator cuff tear repair 2000 right inguinal hernia repair, , [facility] 1999 Hospitalization History Reason Date(Month/Year) No history
--- OUTSIDE RECORDS SUMMARY | 2025-06-26 08:59 | XMS_ITS | Patient Health Record ---
Author Organization [facility] Address [address] [place] [address] Care Team Providers Care Manager Critical Care Unit Name Role Phone Ariel Guo DO Primary [...] Problem Status W/U Status Risk Notes Problem Diverticular disease of colon (142039369) Diverticulosis (K57.90) Active confirmed Plan Of Treatment Pending Test Test Name Order Date Surgical Pathology Report 01/24/2020 COVID19 (LC) 01/22/2020 Insurance Providers Payer Name Payer Address Payer Phone Subscriber Number Group Number Insured Name Patient Relationship to Insured Coverage Start Date Coverage End Date [facility]/[employer] [address] [address] [place] [phone] [id number] Ulysses Larkin Self - patient is the insured Medical (General) History Medical History History ICD Code Hypertension Surgical History Surgery Date(Month/Year) colonoscopy Tonsillectomy [place] surgery Hip replacement Carpal Tunnel Hip revision Hernia
[2025-06-26 10:33] LABS: MANUAL DIFF FLAG NO
[2025-06-26 10:53] LABS: Hematocrit 43.3 % (42.0-52.0); Hemoglobin 14.7 g/dl (14.0-18.0); Imm Gran Abs Auto 0.04 X10*3/uL (0.00-0.03); Imm Gran Pct Auto 0.4 % (0.0-0.4); Lymphocytes Absolute Auto 3.6 X10*3/uL (1.2-4.9); Mean Corpuscular HGB Conc 33.9 g/dl (31.0-36.0); Mean Corpuscular Hemoglobin 31.7 pg (27.0-33.0); Mean Corpuscular Volume 93.5 fL (80.0-98.0); NRBC Abs Auto 0.000 X10*3/uL (0.0-0.012); NRBC Pct Auto 0.0 /100WBC (0.0-0.2); Platelet Count 310 X10*3/uL (160-400); Red Blood Count 4.63 X10*6/uL (4.60-5.80); White Blood Count 10.8 X10*3/uL (4.8-10.8)
[2025-06-26 11:02] LABS: Alanine Aminotransferase 28 U/L (0-40); Albumin Level 4.6 g/dL (3.5-5.0); Alkaline Phosphatase 87 U/L (39-117); Anion Gap 14 (12-20); Aspartate Amino Transferase 40 U/L (5-37); Blood Urea Nitrogen 18 mg/dL (9-16); Calcium 9.2 mg/dL (8.4-10.2); Carbon Dioxide 29 mmol/L (22-29); Chloride 93 mmol/L (96-108); Cholesterol 135 mg/dL (<200); Estimated Glomerular Filt Rate > 60; HDL Cholesterol 45 mg/dL (>40); Potassium 3.5 mmol/L (3.3-5.1); Sodium 132 mmol/L (135-145); Total Protein 7.8 g/dL (6.5-8.0); Triglycerides 155 mg/dL (<150)
== END 2025-06-26 08:38 | disposition home or self-care (01) ==
LOC: HO.10HDL 08:37
PROVIDERS: Visit Provider Internal Medicine Medical Oncology
DX: E78.2 Mixed hyperlipidemia (principal); E55.9 Vitamin D deficiency, unspecified; I10 Essential (primary) hypertension
CPT/HCPCS: 36415; 80053; 80061; 85025

== ENCOUNTER 2025-07-30 08:29 | Outpatient (REF) | payer MEDICARE, SELFPAY ==
--- NOTE | ~2025-07-30 | XR_ITS ---
EXAMINATION: XR SHOULDER, LEFT CLINICAL INFORMATION: M25.519 - Pain in unspecified shoulder COMPARISON: April 20, 2024 TECHNIQUE: AP , Grashey, and axillary views of the left shoulder. FINDINGS: There is severe narrowing of the subacromial space with abutment of the humeral head and concavity of the subacromial contour. There is subchondral sclerosis in the head. There is moderate narrowing of the glenohumeral joint. There are are moderate marginal osteophytes involving humeral head and glenoid. There is no dislocation. Mild to moderate degenerative changes are present in the AC joint. XR/XR shoulder LT min 2V IMPRESSION: Suspect a full-thickness rotator cuff tear. Moderate degenerative change in the glenohumeral joint. Mild to moderate degenerative changes are present in the AC joint. Electronically signed by: Tremaine Robert MD 07/30/2025 02:24 PM [facility]
== END 2025-07-30 08:30 | disposition home or self-care (01) ==
LOC: HO.HOSX 08:29
PROVIDERS: Visit Provider Physician Assistant
DX: M19.012 Primary osteoarthritis, left shoulder (principal); M75.102 Unspecified rotator cuff tear or rupture of left shoulder, not specified as traumatic
CPT/HCPCS: 73030

== ENCOUNTER → 2025-07-30 14:07 | Outpatient (BNV) | payer MEDICARE, SELFPAY | PROVIDERS: Visit Provider Radiology Diagnostic Radiology | DX: M19.012 Primary osteoarthritis, left shoulder (principal) | CPT/HCPCS: 73030 ==

== ENCOUNTER 2025-07-30 14:10 | Outpatient (AMB) | payer MEDICARE, SELFPAY ==
--- NOTE | 2025-07-30 14:24 | A.OFFVIS_ITS ---
Intake Visit Reasons: left shoulder injection, last inj 04/20/24 Intake Note: Ulysses is a 79 year old right hand dominant male who presents today for a repeat injection for his left shoulder, last injection was on 04/20/24. Patient states that his last injection lasted about 2 months Allergies No Known Allergies Allergy (Verified 07/30/25 14:25) HPI HPI left shoulder injection, last inj 04/20/24: Details: Mr. Larkin is an 79-year-old right-hand dominant male who presents to the office today for chronic left shoulder pain. He was last seen in our office on 04/20/2024 where he was administered a cortisone injection. He had about 2 months of relief with this and returns to the office today for repeat injection. [facility] Social History (Updated 04/20/24 @ 12:38 by Aleksandr Osorio) Alcohol intake: never Patient Tobacco Use Status: Never used Tobacco Current occupational status: retired Review of Systems Const All systems reviewed & are unremarkable except as noted in HPI and below Physical Exam Const General: cooperative, healthy appearing and no acute distress Orientation/consciousness: patient oriented x3 Resp Effort & Inspection: normal respiratory effort and able to speak in complete sentences Neuro General: patient oriented x3 Extrem Other: Left shoulder FF and ABD to 100 degrees. ER to neutral. Sensation intact. + Empty can. NVI. Office Procedures AMB Joint Injection/Aspiration Joint Injection/Aspiration Primary Site: Left Shoulder Prep: site was prepped using aseptic technique, ethochloride spray was applied and injection warnings given Injected: 40 mg of, Decadron, with 3 mL of, 1% plain Lidocaine, 0.25% Bupivacaine and in the subcromial space Approach Used: posterolateral Procedure: The patient tolerated the procedure well, but had some pain with the injection and there was some relief with the local anesthesia Coding 83422 - Large joint Procedure code (CPT) selection complete Assessment & Plan Assessment & Plan (1) Osteoarthritis of left shoulder: Code(s): M19.012 - Primary osteoarthritis, left shoulder Category: Medical (2) Rotator cuff tear arthropathy: Comment: Chronic Code(s): M75.100 - Unspecified rotator cuff tear or rupture of unspecified shoulder, not specified as traumatic; M12.819 - Other specific arthropathies, not elsewhere classified, unspecified shoulder Category: Medical Plan The patient was offered a cortisone injection in left shoulder. The patient was explained the risks, benefits, and alternatives to receiving this injection. After receiving consent for the injection, the patient had the procedure done while in the office today. The patient tolerated the procedure well with no complications. The risks, benefits, and alternatives to a corticosteroid injection were discussed with the patient, including the potential benefits of decreased inflammation and pain, improved function, and diagnostic value. Risks were reviewed, including post-injection flare, skin or fat atrophy, transient facial flushing, temporary elevation in blood glucose, bruising, and rare but serious complications such as infection, tendon weakening or rupture, and cartilage damage with repeated injections. Procedure-related discomfort and possible vasovagal symptoms were also explained. Alternatives were reviewed, including NSAIDs, physical therapy, activity modification, bracing, ice/heat, weight management, hyaluronic acid injections when appropriate, PRP or other orthobiologics, oral steroids, surgery depending on pathology, and observation. The patient verbalized understanding and elected to proceed. After receiving consent for the injection, the patient had the procedure done while in the office today. The patient tolerated the procedure well with no complications. X-rays of the left shoulder which were obtained while in the office today and were reviewed by me, Racehl Inman PA-C, revealed left shoulder osteoarthritis with acetabularization of the acromion indicative of chronic full-thickness rotator cuff tear. Follow-up will be PRN, or sooner if needed Orders: Orders XR shoulder LT min 2V Today M25.519 - Pain in unspecified shoulder Coding Level of Care Code Est Pt Level 3 (16526) Complex visit Add On G2211 Diagnoses Osteoarthritis of left shoulder M19.012 Rotator cuff tear arthropathy M75.100; M12.819 CPT Codes Coding - 77859 Large joint: 13959 - Large joint ([id number])
== END 2025-07-30 15:02 | disposition home or self-care (01) ==
PROVIDERS: PCP Internal Medicine Medical Oncology; Visit Provider Physician Assistant
DX: M19.012 Primary osteoarthritis, left shoulder (principal); M75.101 Unspecified rotator cuff tear or rupture of right shoulder, not specified as traumatic; M12.812 Other specific arthropathies, not elsewhere classified, left shoulder
CPT/HCPCS: 20610; 99213